=== PATIENT | female | born 1950 | race Caucasian/White ===

== ENCOUNTER 2016-08-15 17:59 | Emergency (ER) | payer OTHER ==
[2016-08-15 18:21] VITALS: BMI 24.3
[2016-08-15] MEDS ORDERED: SODIUM CHLORIDE 500 ML IV STA (19:12)
[2016-08-15] MEDS ORDERED: ACETAMINOPHEN 325 MG TABLET (FP) PO ONE (19:12)
--- NOTE | 2016-08-15 19:12 | PDOC ---
History of Present Illness - History of Present Illness Initial Comments: 08/15/16 19:52 Patient is a 66 year old female with significant medical hx of asthma, diabetes , arthritis and HTN who is presenting with two days of productive cough, diffuse headache, subjective fever, chills, and body aches. Today the patient reports an episode of nausea and vomiting that occurred at 3 PM. She also reports productive cough with white sputum production and right ear pain. The patient received the flu vaccine this year. Denies diarrhea or difficulty urinating. <Agueda Joseph - Last Filed: 08/15/16 19:55> <Axel Enins - Last Filed: 08/15/16 22:31> - General Chief Complaint: Cold Symptoms Stated Complaint: FLU LIKE SYMPTOMS Time Seen by Provider: 08/15/16 18:58 Past History <Agueda Joseph - Last Filed: 08/15/16 19:55> - Past Medical History Anemia: No Asthma: Yes Cancer: No Cardiac Disorders: No CVA: No COPD: No CHF: No Dementia: Yes Diabetes: Yes Disorders: No HTN: Yes Hypercholesterolemia: Yes Liver Disease: No Seizures: No Thyroid Disease: No - Surgical History Abdominal Surgery: No Appendectomy: No Cardiac Surgery: No Cholecystectomy: Yes (20 YEARS, OPEN PROCEDURE) Lung Surgery: No Neurologic Surgery: No Orthopedic Surgery: No - Immunization History Immunization Up to Date: Yes - Psycho/Social/Smoking Cessation Hx Anxiety: No Suicidal Ideation: No Smoking Status: Yes Smoking History: Former smoker Have you smoked in the past 12 months: No Number of Cigarettes Smoked Daily: 0 Information on smoking cessation initiated: No Hx Alcohol Use: No Drug/Substance Use Hx: No Substance Use Type: None Hx Substance Use Treatment: No <Axel Ennis - Last Filed: 08/15/16 22:31> - Past Medical History Allergies/Adverse Reactions: Allergies Allergy/AdvReac Type Severity Reaction Status Date / Time No Known Allergies Allergy Verified 08/15/16 18:04 Home Medications: Ambulatory Orders Oseltamivir Phosphate [Tamiflu -] 75 mg PO BID #10 capsule 08/15/16 Review of Systems - Review of Systems Comments:: CONSTITUTIONAL: Subjective fever, chills, body aches EYES: No visual changes ENT: Right ear pain. No sore throat CARDIOVASCULAR: No chest pain, no palpitations RESPIRATORY: Productive cough. No SOB GI: Nausea, vomiting. No abdominal pain, no constipation, no diarrhea GENITOURINARY: No dysuria, no frequency, no hematuria MUSKULOSKELETAL: No backpain, no joint pain, no myalgias SKIN: No rash NEURO: Headache <OpalAgueda - Last Filed: 08/15/16 19:55> *Physical Exam - Vital Signs Last Vital Signs Temp Pulse Resp BP Pulse Ox 99.9 F H 81 22 158/73 96 08/15/16 18:04 08/15/16 18:04 08/15/16 18:04 08/15/16 18:04 08/15/16 18:04 - Physical Exam Comments: 08/15/16 19:55 CONSTITUTIONAL: Morbidly obese, mild distress HEAD: Normocephalic; atraumatic EYES: PERRL; EOM intact. No photophobia ENMT: Frontal sinus tenderness to palpation. External appears normal; normal oropharynx NECK: Supple; non-tender; no cervical lymphadenopathy CARD: Normal S1, S2; no murmurs, rubs, or gallops RESP: Rhonchi at the bases bilaterally. Normal chest excursion with respiration ; no wheezes or rales ABD: Soft, non-distended; mild RUQ tenderness to palpation; no palpable organomegaly, no palpable hernias EXT: Normal ROM in all four extremities; non-tender to palpation; distal pulses intact SKIN: Warm, dry, no petechial rash NEURO: No focal neurological deficiencies. <OpalAgueda - Last Filed: 08/15/16 19:55> - Vital Signs Last Vital Signs Temp Pulse Resp BP Pulse Ox 99.9 F H 81 22 158/73 96 08/15/16 18:04 08/15/16 18:04 08/15/16 18:04 08/15/16 18:04 08/15/16 18:04 <Axel Ennis - Last Filed: 08/15/16 22:31> ED Treatment Course - LABORATORY CBC & Chemistry Diagram: 08/15/16 19:14 08/15/16 19:14 - Medications Given in the ED: ED Medications Discontinued Medications Generic Name Dose Route Start Last Admin Trade Name Freq PRN Reason Stop Dose Admin Acetaminophen 650 mg 08/15/16 19:12 08/15/16 19:25 Tylenol - PO 08/15/16 19:13 650 mg ONCE ONE Administration <Agueda Joseph - Last Filed: 08/15/16 19:55> - LABORATORY CBC & Chemistry Diagram: 08/15/16 19:14 08/15/16 19:14 - RADIOLOGY Radiology Studies Ordered: Category Date Time Status CHEST X-RAY PORTABLE* [RAD] Stat Radiology 08/15/16 19:08 Ordered <Axel Ennis - Last Filed: 08/15/16 22:31> Medical Decision Making - Medical Decision Making 08/15/16 22:29 Patient is a 66-year-old female who presents with flulike symptoms for the past 2 days and a fever. In the ER, patient was noted to be initially febrile to 103.3. Serial exams reveal no evidence of meningismus. Lungs are noted to be clear with oxygen saturation above 95% on room air. CBC/CMP/UA within normal limit. Patient is noted to be positive for influenza a. Patient received acetaminophen, IV fluids and Tamiflu. At this time, patient is asymptomatic, well-appearing, tolerates by mouth and wishes to go home. Will discharge with Tamiflu twice a day for 5 days with PMD follow-up. Patient safe for outpatient discharge. <Axel Ennis - Last Filed: 08/15/16 22:31> *DC/Admit/Observation/Transfer - Attestations Scribe Attestion: 08/15/16 19:54 Documentation prepared by Agueda Joseph, acting as certified ophthalmic medical technician for Axel Ennis MD. <Agueda Joseph - Last Filed: 08/15/16 19:55> - Attestations Physician Attestion: 08/15/16 22:28 The documentation was prepared by the scribe under my direct supervision. I have reviewed the documentation which correctly represents the findings, medical decision-making and critical action taken by me. <Axel Ennis - Last Filed: 08/15/16 22:31> Diagnosis at time of Disposition: Influenza due to influenza virus, type A, human - Discharge Dispostion Disposition: HOME Condition at time of disposition: Stable - Referrals Referrals: Kayden Guadalupe MD [Primary Care Provider] - - Patient Instructions Printed Discharge Instructions: Influenza Print Language: IVORIAN
[2016-08-15] MEDS ORDERED: ACETAMINOPHEN 325 MG TABLET (FP) ONE (19:15)
[2016-08-15 19:57] LABS: BASOPHIL 0.4 % (0-2.0); MCH 26.8 pg (25.7-33.7); MCHC 32.6 g/dl (32.0-36.0); MEAN CELL VOLUME 82.2 fl (80-96); MEAN PLT VOLUME 8.6 fl (7.5-11.1); NEUTROPHILS 83.1 % (42.8-82.8); PLATELET COUNT 234 K/MM3 (134-434); RDW 15.4 % (11.6-15.6)
[2016-08-15] MEDS ORDERED: OSELTAMIVIR PHOSPHATE 75 MG CAPSULE PO ONE (19:58)
[2016-08-15 19:59] VITALS: TEMP 103.3
[2016-08-15] MEDS ORDERED: OSELTAMIVIR PHOSPHATE 75 MG CAPSULE ONE (19:59)
[2016-08-15 20:17] LABS: ALBUMIN 3.9 g/dl (3.4-5.0); ANION GAP 11 (8-16); CALCIUM 8.6 mg/dL (8.5-10.1); CO2 23 mmol/L (21-32); CREATININE 0.6 mg/dL (0.55-1.02); GLUCOSE,RANDOM 89 mg/dL (74-106); SGPT/ALT 22 U/L (12-78)
[2016-08-15 20:18] LABS: ALK PHOS 68 U/L (45-117); BILIRUBIN,TOTAL 0.7 mg/dL (0.2-1.0); TOT PROT 7.5 g/dl (6.4-8.2)
[2016-08-15 20:19] LABS: SGOT/AST 34 U/L (15-37)
[2016-08-15 20:44] LABS: URINE APPEARANCE CLEAR; URINE BILIRUBIN NEGATIVE (NEGATIVE); URINE COLOR LTYELLOW; URINE GLUCOSE (UA) NEGATIVE (NEGATIVE); URINE KETONE 1+ (NEGATIVE); URINE LEUK ESTERASE NEGATIVE (NEGATIVE); URINE NITRITE NEGATIVE (NEGATIVE); URINE PROTEIN NEGATIVE (NEGATIVE); URINE UROBILINOGEN NEGATIVE E.U./dl (0.2-1.0)
[2016-08-15] MEDS ORDERED: IBUPROFEN 400 MG TABLET (FP) PO ONE ×2 (20:53→21:34)
[2016-08-15 20:54] LABS: URINE BLOOD 2+ (NEGATIVE)
[2016-08-15 20:55] LABS: URINE MUCUS RARE; URINE RBC 28 /hpf (0-3); URINE WBC 1 /hpf (3-5)
[2016-08-15 20:57] VITALS: BP 139/72; PULSE 87
== END 2016-08-15 22:46 | disposition home or self-care (01) ==
LOC: JER 17:59
PROC: 3E0337Z Introduction of Electrolytic and Water Balance Substance into Peripheral Vein, Percutaneous Approach (ICD-10-PCS; principal; 2016-08-15)
DX: J09.X2 Influenza due to identified novel influenza A virus with other respiratory manifestations (principal); I10 Essential (primary) hypertension; E11.9 Type 2 diabetes mellitus without complications; J45.909 Unspecified asthma, uncomplicated; F03.90 Unspecified dementia, unspecified severity, without behavioral disturbance, psychotic disturbance, mood disturbance, and anxiety; Z87.891 Personal history of nicotine dependence
CPT/HCPCS: 36415; 71010-TC; 80053; 81003; 81015; 85025; 87086; 87804; 99283-25

== ENCOUNTER 2016-12-31 10:54 | Day surgery (SDC) | payer OTHER ==
[2016-12-30 19:05] VITALS: BMI 36.2
[2016-12-31 11:16] VITALS: TEMP 97.9
[2016-12-31] MEDS ORDERED: LIDOCAINE HCL/PF 2% SDV 5ML VIAL ONE (12:42)
[2016-12-31] MEDS ORDERED: PROPOFOL 20 ML ONE (12:42)
[2016-12-31] MEDS ORDERED: BETAMET ACET/BETAMET NA PH 30 MG/5 ML VIAL IM ONE (13:11)
[2016-12-31] MEDS ORDERED: LIDOCAINE HCL 1%, 10 MG/ML (20ML VIAL) IJ ONE (13:11)
[2016-12-31 15:12] VITALS: BP 123/68; PULSE 66
--- NOTE | 2017-01-09 13:04 | OP ---
DATE OF OPERATION: 12/31/2016 PREOPERATIVE DIAGNOSIS: Low back pain, lumbar radiculopathy on the left. POSTOPERATIVE DIAGNOSIS: Low back pain, lumbar radiculopathy on the left. PROCEDURE PERFORMED: Lumbar epidural steroid injection, interlaminar at left L4-5 level. ANESTHESIA: Local and MAC. RN IV THERAPY: Camryn Garcia MD. PROCEDURE IN DETAIL: I discussed with her in details about the risks, benefits and alteratives of treatment no only limited to infection, fever, headache, numbness, tingling weakness, injury to blood vessel, nerves and muscles. The patient understood all this and signed the informed consent. The patient was placed in the prone position with the head, neck, abdomen and legs supported by pillows. The lumbosacral area was prepped and draped with Betadine x3. Under fluoroscopic guidance left L4-L5 level was identified. At this level 3 mL of 1% lidocaine was infiltrated. A 20-gauge, 3 1/2-inch Tuohy needle was used to approach the epidural space with loss of resistance technique with intermittent fluoroscopy both AP and oblique views. After negative aspiration, 2 mL of Omnipaque were injected to see the flow of dye and the spread was noted both cranially and caudally. There was no vascular uptake with CSF aspirate. At this level 2.5 mL of Celestone mixed with 2.5 mL of 0.25% Marcaine total about 5 mL were injected at epidural space after negative aspiration. While the Tuohy was withdrawn 1 mL of 1% lidocaine was infiltrated. Bleeding was checked. Betadine was wiped off. A sterile bandage was placed. The patient tolerated the procedure well and there were no immediate complications. The patient was transferred to the recovery room and observed for some time and discharged per discharge criteria. The patient was told to apply ice. If any problem she was told to call me or report to the ER. Followup appointment was given. CALLIE LOPEZ M.D. RONI/[id number]
== END 2016-12-31 15:00 | disposition home or self-care (01) ==
LOC: JASU-SURG 10:54
PROVIDERS: ATTEND Physical Medicine & Rehabilitation
PROC: 3E0R3CZ (ICD-10-PCS; 2016-12-31)
PROC: B01BZZZ Fluoroscopy of Spinal Cord (ICD-10-PCS; 2016-12-31)
PROC: 3E0R33Z Introduction of Anti-inflammatory into Spinal Canal, Percutaneous Approach (ICD-10-PCS; principal; 2016-12-31 12:00)
DX: M54.16 Radiculopathy, lumbar region (principal); M54.5 Low back pain
CPT/HCPCS: 76000-TC

== ENCOUNTER 2017-10-29 23:24 | Inpatient (IN) | payer OTHER ==
[2017-10-29 23:28] VITALS: BMI 38.4
--- NOTE | 2017-10-30 00:34 | PDOC ---
History of Present Illness - General Chief Complaint: Injury Stated Complaint: fall Time Seen by Provider: 10/30/17 00:33 History Source: Patient - History of Present Illness Initial Comments: 10/29/2017 67 year old s/p slip on rug in the bathroom and fell hit the soap dish hit head , c/o left side rib pain, headache, neck pain and right ankle swelling and pain. unable to weight bear. patient reports that she felt dizzy shortly after the head injury. reports pain at this time no dizziness. Past History - Past Medical History Allergies/Adverse Reactions: Allergies Allergy/AdvReac Type Severity Reaction Status Date / Time No Known Allergies Allergy Verified 10/29/17 23:28 Home Medications: Ambulatory Orders Amlodipine Besylate 5 mg PO DAILY 12/30/16 Zolpidem Tartrate [Ambien] 5 mg PO HS 12/30/16 Bacitracin - [Bacitracin Topical Ointment -] 1 applic TP BID tube 11/03/17 Heparin - 5,000 unit SQ BID vial 11/03/17 Polyethylene Glycol 3350 [Miralax 119 gm Btl -] 17 gm PO DAILY bottle 11/03/17 traMADol HCL [Ultram -] 50 mg PO Q8H PRN #20 tablet MDD 3 tabs 11/03/17 Anemia: No Asthma: No Cancer: No Cardiac Disorders: No CVA: No COPD: No CHF: No Dementia: No Diabetes: No GI Disorders: No Disorders: No HTN: Yes Hypercholesterolemia: No Liver Disease: No Seizures: No Thyroid Disease: No Other medical history: herniated disc, arthritis - Surgical History Abdominal Surgery: No Appendectomy: No Cardiac Surgery: No Cholecystectomy: Yes (20 YEARS, OPEN PROCEDURE) Lung Surgery: No Neurologic Surgery: No - Immunization History Immunization Up to Date: Yes - Suicide/Smoking/Psychosocial Hx Smoking Status: Yes Smoking History: Never smoked Have you smoked in the past 12 months: No Number of Cigarettes Smoked Daily: 0 Hx Alcohol Use: No Drug/Substance Use Hx: No Substance Use Type: None Hx Substance Use Treatment: No Review of Systems - Review of Systems Able to Perform ROS?: Yes Is the patient limited Georgian proficient: No Constitutional: No: Symptoms Reported, See HPI, Chills, Diaphoresis, Fever, Loss of Appetite, Malaise, Night Sweats, Weakness, Weight Stable, Unintentional Wgt. Loss, Unexplained wgt Loss, Other Musculoskeletal: Yes: Joint Pain, Joint Swelling, Other (right ankle pain) Neurological: Yes: Headache (and neck pain). No: Symptoms reported, See HPI, Numbness, Paresthesia, Pre-Existing Deficit, Seizure, Tingling, Tremors, Weakness, Unsteady Gait, Ataxia, Dizziness, Other *Physical Exam - Vital Signs Last Vital Signs Temp Pulse Resp BP Pulse Ox 98.0 F 78 16 150/46 100 10/29/17 23:26 10/29/17 23:26 10/29/17 23:26 10/29/17 23:26 10/29/17 23:26 - Physical Exam General Appearance: Yes: Appropriately Dressed HEENT: positive: Other (bruising around left eye. no ethmoid bone tenderness. EOM intact. vision intact) Neck: positive: Tender lateral, Tender midline. negative: Tender, Trachea midline, Normal Thyroid, Rigid, Supple, Carotid bruit, Decreased range of motion , Stridor, Lymphadenopathy (R), Lymphadenopathy (L), Rigidity, Thyromegaly, Other Respiratory/Chest: positive: Lungs Clear, Normal Breath Sounds Cardiovascular: positive: Regular Rhythm, Regular Rate. negative: S1, S2, Edema , JVD, Murmur, Bradycardia, Tachycardia, Diastolic Murmur, Systolic Murmur, Gallop/S3, Gallop/S4, Irregularly Irregular, Irregular, Other Gastrointestinal/Abdominal: positive: Normal Bowel Sounds, Soft Extremity: positive: Normal Capillary Refill, Normal Inspection, Other (limited rom of the right ankle. ) Integumentary: positive: Normal Color, Dry, Warm Neurologic: positive: Fully Oriented, Alert Heart Score/ECG Review - ECG Intrepretation Rhythm: Regular Rhythm Comment:: 10/30/17 03:48 NSR; 74 ED Treatment Course - LABORATORY CBC & Chemistry Diagram: 11/03/17 06:40 11/03/17 06:40 Progress Note - Progress Note Progress Note: A; right distal fib fracture; head injury P; xray: + distal fib fracture ct head cervical neck Medical Decision Making - Medical Decision Making A: distal fib fracture; elderly fall head injury P: cbc cmp xray: ct head/ cervical spine 10/30/17 03:18 patient unable to weightbear. 10/30/17 05:44 patient to be placed under observation for PT evaluation. Patient endorsed to Dr. Alberto for obs placement. *DC/Admit/Observation/Transfer Diagnosis at time of Disposition: Inability to bear weight Head injury Qualifiers: Encounter type: initial encounter Qualified Code(s): S09.90XA - Unspecified injury of head, initial encounter Fracture of distal fibula Qualifiers: Encounter type: initial encounter Fracture type: closed Fracture morphology: unspecified fracture morphology Laterality: right Qualified Code(s): S82.831A - Other fracture of upper and lower end of right fibula, initial encounter for closed fracture - Discharge Dispostion Disposition: RETIREMENT FACILITY Condition at time of disposition: Improved Admit: Yes - Referrals - Patient Instructions - Post Discharge Activity
[2017-10-30 03:31] LABS: BASO % 0.5 % (0-2.0); EOS % 0.6 % (0-4.5); HEMATOCRIT 35.1 % (32.4-45.2); HEMOGLOBIN 11.7 GM/dL (10.7-15.3); LYMPH % 22.6 % (8-40); MCH 26.9 pg (25.7-33.7); MCHC 33.2 g/dl (32.0-36.0); MEAN PLT VOLUME 8.6 fl (7.5-11.1); MONO % 7.1 % (3.8-10.2); NEUT % 69.2 % (42.8-82.8); PLATELET COUNT 325 K/MM3 (134-434); RBC 4.34 M/mm3 (3.60-5.2); RDW 15.8 % (11.6-15.6); WHITE BLOOD COUNT 7.5 K/mm3 (4.0-10.0)
[2017-10-30 04:49] LABS: ALBUMIN 3.5 g/dl (3.4-5.0); ANION GAP 7 (8-16); BILIRUBIN,TOTAL 0.3 mg/dL (0.2-1.0); BLOOD UREA NITROGEN 18 mg/dL (7-18); CALCIUM 8.2 mg/dL (8.5-10.1); CHLORIDE 106 mmol/L (98-107); CO2 27 mmol/L (21-32); CREATININE 0.6 mg/dL (0.55-1.02); GLUCOSE,RANDOM 145 mg/dL (74-106); POTASSIUM 3.4 mmol/L (3.5-5.1); SGOT/AST 17 U/L (15-37); SGPT/ALT 15 U/L (12-78); SODIUM 140 mmol/L (136-145)
[2017-10-30 04:51] LABS: ALK PHOS 71 U/L (45-117)
[2017-10-30] MEDS ORDERED: ONDANSETRON 4 MG/2 ML VIAL IVPUSH PRN (10:54)
--- NOTE | 2017-10-30 11:21 | EKG ---
Test Reason : Blood Pressure : / mmHG Vent. Rate : 074 BPM Atrial Rate : 074 BPM P-R Int : 138 ms QRS Dur : 084 ms QT Int : 408 ms P-R-T Axes : 030 -13 014 degrees QTc Int : 452 ms NORMAL SINUS RHYTHM MODERATE VOLTAGE CRITERIA FOR LVH, MAY BE NORMAL VARIANT BORDERLINE ECG WHEN COMPARED WITH ECG OF 30-NOV-2010 08:32, NO SIGNIFICANT CHANGE WAS FOUND Confirmed by GLADYS MELARA, BLADIMIR ([id number]) on 10/30/2017 11:21:09 AM Referred By: Confirmed By:BLADIMIR GRAHAM MD
--- NOTE | 2017-10-30 11:23 | CON.ORTH ---
Consult Reason for Consultation:: right ankle fx - Alcohol/Substance Use Hx Alcohol Use: No - Smoking History Smoking history: Never smoked Have you smoked in the past 12 months: No Aproximately how many cigarettes per day: 0 Home Medications - Allergies Allergies/Adverse Reactions: Allergies Allergy/AdvReac Type Severity Reaction Status Date / Time No Known Allergies Allergy Verified 10/29/17 23:28 - Home Medications Home Medications: Ambulatory Orders Amlodipine Besylate 5 mg PO DAILY 12/30/16 Zolpidem Tartrate [Ambien] 5 mg PO HS 12/30/16 Physical Exam for Ortho Vital Signs: Vital Signs Temperature 97.5 F L 10/30/17 09:06 Pulse Rate 68 10/30/17 09:06 Respiratory Rate 18 10/30/17 09:06 Blood Pressure 112/61 10/30/17 09:06 O2 Sat by Pulse Oximetry (%) 99 10/30/17 06:56 Labs: CBC, BMP 10/30/17 03:24 10/30/17 03:24 - Lower Extremity Ankle: Yes: Right, Limited ROM, Pain, Swelling, Tenderness, Other (splint intact , nvi) Imaging - Results X-ray: Report Reviewed, Image Reviewed Assessment/Plan 67 year old s/p slip on rug in the bathroom and fell hit the soap dish hit head , c/o left side rib pain, headache, neck pain and right ankle swelling and pain. unable to weight bear weight. a/p right non displaced distal fibula fx No surgical intervention keep splint intact TTWB elevation ok to d/c from ortho pov d/w Dr. Cohen
[2017-10-30] MEDS: amLODIPine BESYLATE 5 MG TABLET (FP) PO SCH (11:25)
[2017-10-30] MEDS: morphine SULFATE 4 MG/ML VIAL IVPUSH PRN ×2 (11:25→20:22)
[2017-10-30 13:45] LABS: URINE APPEARANCE SLCLOUDY; URINE BILIRUBIN NEGATIVE (<2.0 mg/dL); URINE COLOR YELLOW; URINE GLUCOSE (UA) NEGATIVE (NEGATIVE); URINE KETONE NEGATIVE (NEGATIVE); URINE LEUK ESTERASE NEGATIVE (NEGATIVE); URINE NITRITE NEGATIVE (NEGATIVE); URINE PROTEIN NEGATIVE (NEGATIVE)
--- NOTE | 2017-10-31 02:19 | HP ---
Admitting History and Physical - Admission History of Present Illness: Pt is a 67 y/o female w/ PMH significant for HTN. Pt was at home and slipped on a rug in the bathroom and fell. Pt did hit her head but there was no LOC. Pt presented to the ER w/ left side rib pain, headache, neck pain and right ankle swelling and pain. Pt is unable to bear weight due to ankle pain. Pt had XRAY wc showed rt distal fibular fx. CT scan head was negative. - Past Medical History Cardiovascular: Yes: HTN - Past Surgical History Past Surgical History: Yes: None - Smoking History Smoking history: Never smoked Have you smoked in the past 12 months: No Aproximately how many cigarettes per day: 0 - Alcohol/Substance Use Hx Alcohol Use: No Home Medications - Allergies Allergies/Adverse Reactions: Allergies Allergy/AdvReac Type Severity Reaction Status Date / Time No Known Allergies Allergy Verified 10/29/17 23:28 - Home Medications Home Medications: Ambulatory Orders Amlodipine Besylate 5 mg PO DAILY 12/30/16 Zolpidem Tartrate [Ambien] 5 mg PO HS 12/30/16 Family Disease History - Family Disease History Family History: Unremarkable Review of Systems - Review of Systems Eyes: reports: No Symptoms HENT: reports: No Symptoms Neck: reports: No Symptoms Cardiovascular: reports: No Symptoms Respiratory: reports: No Symptoms Gastrointestinal: reports: No Symptoms Physical Examination Vital Signs: Vital Signs Temperature 98.6 F 10/30/17 20:06 Pulse Rate 83 10/30/17 20:06 Respiratory Rate 18 10/30/17 20:34 Blood Pressure 125/68 10/30/17 20:06 O2 Sat by Pulse Oximetry (%) 97 10/30/17 20:34 Constitutional: Yes: Well Nourished HENT: Yes: WNL Neck: Yes: WNL, Supple Cardiovascular: Yes: WNL, Regular Rate and Rhythm Respiratory: Yes: WNL, Regular, CTA Bilaterally Gastrointestinal: Yes: WNL, Normal Bowel Sounds, Soft Extremities: Yes: Other (Rt foot/leg immobilized) Edema: No Neurological: Yes: WNL, Alert, Oriented ...Motor Strength: WNL Labs: CBC, BMP 10/30/17 03:24 10/30/17 03:24 Problem List - Problems (1) Fracture of distal fibula Assessment/Plan: As per ortho Spoke to pt who states that she is unable to be cared for at home. Pain management PT eval ?STR placement Code(s): S82.839A - OTH FRACTURE OF UPPER AND LOWER END OF UNSP FIBULA, INIT Qualifiers: Encounter type: initial encounter Fracture type: closed Fracture morphology: unspecified fracture morphology Laterality: right Qualified Code (s): S82.831A - Other fracture of upper and lower end of right fibula, initial encounter for closed fracture (2) HTN (hypertension) Assessment/Plan: Cont [facility] Code(s): I10 - ESSENTIAL (PRIMARY) HYPERTENSION (3) Head injury Code(s): S09.90XA - UNSPECIFIED INJURY OF HEAD, INITIAL ENCOUNTER Qualifiers: Encounter type: initial encounter Qualified Code(s): S09.90XA - Unspecified injury of head, initial encounter
[2017-10-31] MEDS: morphine SULFATE 4 MG/ML VIAL IVPUSH PRN ×3 (06:24→20:43)
[2017-10-31 07:47] LABS: BASO % 0.8 % (0-2.0); EOS % 1.7 % (0-4.5); HEMATOCRIT 34.4 % (32.4-45.2); HEMOGLOBIN 11.3 GM/dL (10.7-15.3); LYMPH % 27.5 % (8-40); MCH 26.6 pg (25.7-33.7); MCHC 32.7 g/dl (32.0-36.0); MEAN CELL VOLUME 81.2 fl (80-96); PLATELET COUNT 267 K/MM3 (134-434); RBC 4.24 M/mm3 (3.60-5.2); RDW 15.3 % (11.6-15.6); WHITE BLOOD COUNT 5.3 K/mm3 (4.0-10.0)
[2017-10-31 08:15] LABS: ALBUMIN 3.2 g/dl (3.4-5.0); ANION GAP 6 (8-16); BLOOD UREA NITROGEN 16 mg/dL (7-18); CHLORIDE 104 mmol/L (98-107); CO2 29 mmol/L (21-32); GLUCOSE,RANDOM 127 mg/dL (74-106); POTASSIUM 3.7 mmol/L (3.5-5.1); SODIUM 139 mmol/L (136-145)
[2017-10-31 08:19] LABS: ALK PHOS 70 U/L (45-117); BILIRUBIN,TOTAL 0.6 mg/dL (0.2-1.0); CREATININE 0.4 mg/dL (0.55-1.02); SGOT/AST 15 U/L (15-37); SGPT/ALT 16 U/L (12-78); TOT PROT 6.5 g/dl (6.4-8.2)
[2017-10-31] MEDS: amLODIPine BESYLATE 5 MG TABLET (FP) PO SCH (09:38)
[2017-10-31] MEDS: HEPARIN NA (PORCINE) 5,000 UNITS/ML 1ML VIAL SQ SCH ×2 (09:38→22:08)
--- NOTE | 2017-10-31 13:01 | PN ---
Progress Note (short form) - Note Progress Note: Ortho Pt seen and examined s/p right distal fibula fx splint intact, nvi a/p NWB RLE PT pain control ok to d/c from ortho pov f/u in 7-10 days in the office d/w Dr. Cohen
[2017-10-31] MEDS ORDERED: diphenhydrAMINE HCL 25 MG CAPSULE (FP) PO ONE (22:15)
[2017-11-01] MEDS: HEPARIN NA (PORCINE) 5,000 UNITS/ML 1ML VIAL SQ SCH ×2 (09:19→21:39)
[2017-11-01] MEDS: morphine SULFATE 4 MG/ML VIAL IVPUSH PRN (09:19)
[2017-11-01] MEDS: amLODIPine BESYLATE 5 MG TABLET (FP) PO SCH (09:19)
--- NOTE | 2017-11-01 11:09 | PN ---
Progress Note (short form) - Note Progress Note: Pt seen and examined. She has a nondisplaced right distal fibula fracture. In a splint, comfortable. No significant swelling. LLE NVI Pt doing well. She can be DC'd/transfered from an ortho pov
[2017-11-01] MEDS: diphenhydrAMINE HCL 25 MG CAPSULE (FP) PO ONE ×2 (14:33→14:47)
[2017-11-01] MEDS: POLYETHYLENE GLYCOL 3350 119 GM BTL PO SCH (14:33)
[2017-11-01] MEDS ORDERED: diphenhydrAMINE HCL 25 MG CAPSULE (FP) PO ONE ×2 (14:45→23:30)
[2017-11-01] MEDS: traMADol HCL 50 MG TABLET PO PRN ×2 (14:46→23:28)
--- NOTE | 2017-11-01 16:30 | PN ---
Progress Note, Physician History of Present Illness: Pt c/o pruritis at sight of splint/dressing Pt also complains of increased swelling of toes but has been sitting all day - Current Medication List Current Medications: Active Medications Amlodipine Besylate (Norvasc -) 5 mg PO DAILY [facility] Last Admin: 11/01/17 09:19 Dose: 5 mg Heparin Sodium (Porcine) (Heparin -) 5,000 unit SQ BID [facility] Last Admin: 11/01/17 09:19 Dose: 5,000 unit Ondansetron HCl (Zofran Injection) 4 mg IVPUSH Q6H PRN PRN Reason: NAUSEA Polyethylene Glycol (Miralax (For Daily Use) -) 17 gm PO DAILY [facility] Last Admin: 11/01/17 14:33 Dose: 17 gm Tramadol HCl (Ultram -) 50 mg PO Q8H PRN PRN Reason: PAIN LEVEL 1-3 Last Admin: 11/01/17 14:46 Dose: 50 mg - Objective Vital Signs: Vital Signs Temperature 98 F 11/01/17 13:36 Pulse Rate 76 11/01/17 13:36 Respiratory Rate 20 11/01/17 13:36 Blood Pressure 129/60 11/01/17 13:36 O2 Sat by Pulse Oximetry (%) 97 10/31/17 21:00 Constitutional: Yes: Well Nourished Neck: Yes: WNL, Supple Cardiovascular: Yes: WNL, Regular Rate and Rhythm Respiratory: Yes: WNL, Regular, CTA Bilaterally Gastrointestinal: Yes: WNL, Normal Bowel Sounds, Soft Extremities: Yes: Other ((+) rt ankle in splint) Labs: CBC, BMP 10/31/17 06:30 10/31/17 07:00 Problem List - Problems (1) Fracture of distal fibula Assessment/Plan: Long d/w pt and spoke to daughter who states that pt has been falling at home' Pt feels she is unable to care for herself at home DC planning to STR in am Keep RLE elevated for edema Code(s): S82.839A - OTH FRACTURE OF UPPER AND LOWER END OF UNSP FIBULA, INIT Qualifiers: Encounter type: initial encounter Fracture type: closed Fracture morphology: unspecified fracture morphology Laterality: right Qualified Code (s): S82.831A - Other fracture of upper and lower end of right fibula, initial encounter for closed fracture (2) HTN (hypertension) Assessment/Plan: Cont [facility] Code(s): I10 - ESSENTIAL (PRIMARY) HYPERTENSION (3) Head injury Code(s): S09.90XA - UNSPECIFIED INJURY OF HEAD, INITIAL ENCOUNTER Qualifiers: Encounter type: initial encounter Qualified Code(s): S09.90XA - Unspecified injury of head, initial encounter
[2017-11-02] MEDS: amLODIPine BESYLATE 5 MG TABLET (FP) PO SCH (10:06)
[2017-11-02] MEDS: POLYETHYLENE GLYCOL 3350 119 GM BTL PO SCH (10:06)
[2017-11-02] MEDS: HEPARIN NA (PORCINE) 5,000 UNITS/ML 1ML VIAL SQ SCH ×2 (10:06→21:23)
[2017-11-02] MEDS: traMADol HCL 50 MG TABLET PO PRN (16:56)
[2017-11-03 07:47] LABS: ALBUMIN 3.1 g/dl (3.4-5.0); ANION GAP 5 (8-16); BILIRUBIN,TOTAL 0.5 mg/dL (0.2-1.0); BLOOD UREA NITROGEN 17 mg/dL (7-18); CHLORIDE 106 mmol/L (98-107); CO2 29 mmol/L (21-32); CREATININE 0.5 mg/dL (0.55-1.02); GLUCOSE,RANDOM 121 mg/dL (74-106); SGOT/AST 17 U/L (15-37); SODIUM 140 mmol/L (136-145); TOT PROT 6.3 g/dl (6.4-8.2)
[2017-11-03 07:51] LABS: ALK PHOS 67 U/L (45-117); SGPT/ALT 13 U/L (12-78)
[2017-11-03 08:01] LABS: BASO % 0.8 % (0-2.0); EOS % 2.5 % (0-4.5); HEMOGLOBIN 10.9 GM/dL (10.7-15.3); LYMPH % 31.9 % (8-40); MCH 26.6 pg (25.7-33.7); MCHC 32.9 g/dl (32.0-36.0); MEAN CELL VOLUME 80.8 fl (80-96); MEAN PLT VOLUME 8.2 fl (7.5-11.1); MONO % 9.5 % (3.8-10.2); NEUT % 55.3 % (42.8-82.8); PLATELET COUNT 258 K/MM3 (134-434); RBC 4.09 M/mm3 (3.60-5.2); RDW 15.2 % (11.6-15.6); WHITE BLOOD COUNT 5.4 K/mm3 (4.0-10.0)
[2017-11-03] MEDS: traMADol HCL 50 MG TABLET PO PRN (08:09)
[2017-11-03] MEDS: amLODIPine BESYLATE 5 MG TABLET (FP) PO SCH (09:59)
[2017-11-03] MEDS: POLYETHYLENE GLYCOL 3350 119 GM BTL PO SCH (10:00)
[2017-11-03] MEDS: HEPARIN NA (PORCINE) 5,000 UNITS/ML 1ML VIAL SQ SCH (10:00)
--- NOTE | 2017-11-03 10:47 | DS ---
Physical Exam: SUBJECTIVE: Patient seen and examined at the bedside. Feels well, denies discomfort. Constipated Small area of redness on right wrist where IV was inserted, will order bacitracin OBJECTIVE: for discharge today to rehab for nondisplaced right distal fibula fracture. Vital Signs Period Temp Pulse Resp BP Sys/Steiner Pulse Ox Last 24 Hr 97.7 F-98.1 F 73-96 18-20 127-137/63-65 97 PHYSICAL EXAM GENERAL: The patient is awake, alert, and fully oriented, in no acute distress. HEAD: Normal with no signs of trauma. EYES: PERRL, extraocular movements intact, sclera anicteric, conjunctiva clear. ENT: Ears normal, nares patent, oropharynx clear without exudates, moist mucous membranes. NECK: Trachea midline, full range of motion, supple. LUNGS:no accessory muscle use, tolerating room air ABDOMEN: Soft, nontender, nondistended, normoactive bowel sounds, c/o of constipation EXTREMITIES: minimal edema on right foot, soft cast for non displaced right distal fibula fracture s/p fall NEUROLOGICAL: Normal speech, gait not observed. PSYCH: Normal mood, normal affect. SKIN: Warm, dry, normal turgor, no rashes or lesions noted. LABS Laboratory Results - last 24 hr 11/03/17 11/03/17 06:40 06:40 WBC 5.4 RBC 4.09 Hgb 10.9 Hct 33.0 MCV 80.8 MCH 26.6 MCHC 32.9 RDW 15.2 Plt Count 258 MPV 8.2 Neutrophils % 55.3 Lymphocytes % 31.9 Monocytes % 9.5 Eosinophils % 2.5 Basophils % 0.8 Sodium 140 Potassium 4.0 Chloride 106 Carbon Dioxide 29 Anion Gap 5 L BUN 17 Creatinine 0.5 L Creat Clearance w eGFR > 60 Random Glucose 121 H Calcium 8.0 L Total Bilirubin 0.5 AST 17 ALT 13 Alkaline Phosphatase 67 Total Protein 6.3 L Albumin 3.1 L HOSPITAL COURSE: Date of Admission:10/31/17 Date of Discharge: 11/03/17 patient is a 67 year old female with a significant past medical history of hypertension. Patient comes to the hospital after she sustained a right distal fibular fracture s/p fall. Head CT negative. For discharge to rehab. today. Ortho: Fracture of distal fibula Fell and hit head, Head CT negative Ortho followed during hospitalization, cleared for discharge to rehab Pain management with Ultram Elevation of right lower leg on at least 3 pillows for mild edema Bowel regimen Monitor pain levels For rehab today Card: Hypertension, chronic Stable/controlled on Norvasc Discharge: for rehab today. Medical coverage for Dr. Alberto who is patient's PCP. full code. Minutes to complete discharge: 45 Discharge Summary Reason For Visit: FX OF DISTAL END OF FIBULA Current Active Problems Fracture of distal fibula (Acute) HTN (hypertension) (Acute) Head injury (Acute) Inability to bear weight (Acute) Condition: Improved - Instructions Diet, Activity, Other Instructions: Patient for rehab due to nondisplaced right distal fibula fracture. Continue medications as indicated. Referrals: Kayden Guadalupe MD [Primary Care Provider] - Disposition: SNF FACILITY - Home Medications Comprehensive Discharge Medication List: Ambulatory Orders Amlodipine Besylate 5 mg PO DAILY 12/30/16 Zolpidem Tartrate [Ambien] 5 mg PO HS 12/30/16 This patient is new to me today: Yes Date on this admission: 11/03/17 Emergency Visit: Yes ED Registration Date: 10/31/17 Care time: The patient presented to the Emergency Department on the above date and was hospitalized for further evaluation of their emergent condition. Critical Care patient: No - Discharge Referral Referred to [facility] No
[2017-11-03] MEDS ORDERED: BACITRACIN 15 GM TUBE TOPICAL OINTMENT TP SCH (11:00)
[2017-11-03] MEDS ORDERED: BISACODYL 5 MG TABLET.DR (FP) PO ONE (11:30)
[2017-11-03] MEDS ORDERED: ACETAMINOPHEN 500 MG TABLET (FP) PO ONE (14:36)
[2017-11-03 14:39] VITALS: BP 109/52; PULSE 80; TEMP 97.5
== END 2017-11-03 15:23 | DRG 563 ==
LOC: JER 23:24 → UNDOADMOB 10-30 05:42 → JERBED 10-30 05:42 → UNDOADMOB 10-30 05:48 → JERBED 10-30 05:48 → J7W 10-30 08:44 → JERBED 10-30 08:44 → J7W 10-31 02:19 → OBSVTOIN 10-31 02:19
PROVIDERS: ADMIT Internal Medicine; ATTEND Nurse Practitioner Family
PROC: 2W3QX1Z Immobilization of Right Lower Leg using Splint (ICD-10-PCS; principal; 2017-11-01)
DX: S89.301A Unspecified physeal fracture of lower end of right fibula, initial encounter for closed fracture (principal); I10 Essential (primary) hypertension; S09.8XXA Other specified injuries of head, initial encounter; K59.09 Other constipation; W18.2XXA Fall in (into) shower or empty bathtub, initial encounter; Y93.89 Activity, other specified; Y92.091 Bathroom in other non-institutional residence as the place of occurrence of the external cause
CPT/HCPCS: 36415; 70450-TC; 71101-TC-FY; 72125-TC; 73610-TC-RT-FY; 73630-TC-RT-FY; 80053; 81003; 84484; 85025; 93005; 93010; 97116-GP; 97161-GP; 99282-25; J1644

== ENCOUNTER 2017-11-26 10:40 | Emergency (ER) | payer OTHER ==
[2017-11-26 10:56] VITALS: BP 144/69; PULSE 81; TEMP 98.2; BMI 38.4
--- NOTE | 2017-11-26 11:35 | PDOC ---
*Physical Exam - Vital Signs Last Vital Signs Temp Pulse Resp BP Pulse Ox 98.2 F 81 18 144/69 99 11/26/17 10:47 11/26/17 10:47 11/26/17 10:47 11/26/17 10:47 11/26/17 10:47 ED Treatment Course - LABORATORY CBC & Chemistry Diagram: 11/26/17 12:10 11/26/17 12:10 Medical Decision Making - Medical Decision Making 11/26/17 12:06 Ms Gross is a 67yo F h/o HTN, NIDDM p/w abdominal pain. Several days of lower abdominal pressure pain which worsened. (+) nausea and headache, no vomiting. No hematuria, flank pain, fever or chills. Labs CT REassess Pt seen by Midlevel Provider under my direct supervision Pt interviewed and examined Ancillary studies reviewed I agree with plan as outlined by Midlevel Provider *DC/Admit/Observation/Transfer Diagnosis at time of Disposition: Abdominal pain - Discharge Dispostion Disposition: HOME - Referrals Referrals: Kayden Guadalupe MD [Primary Care Provider] - - Patient Instructions Printed Discharge Instructions: DI for Abdominal Pain-Adult Additional Instructions: Please return to the emergency department with any new or worsening symptoms or concerns. Please follow up with your primary care physician within 72 hours. Take Tylenol as needed for abdominal pain. - Post Discharge Activity
[2017-11-26] MEDS ORDERED: ONDANSETRON 4 MG/2 ML VIAL IVPUSH ONE (11:38)
[2017-11-26] MEDS ORDERED: KETOROLAC TROMETHAMINE 30 MG/1 ML VIAL IVPUSH ONE (11:38)
--- NOTE | 2017-11-26 11:46 | PDOC ---
History of Present Illness - General Chief Complaint: Pain Stated Complaint: ABD PAIN Time Seen by Provider: 11/26/17 11:30 History Source: Patient, Family - History of Present Illness Timing/Duration: reports: constant, getting worse Past History - Past Medical History Allergies/Adverse Reactions: Allergies Allergy/AdvReac Type Severity Reaction Status Date / Time No Known Allergies Allergy Verified 11/26/17 10:47 Home Medications: Ambulatory Orders Amlodipine Besylate 5 mg PO DAILY 12/30/16 Zolpidem Tartrate [Ambien] 5 mg PO HS 12/30/16 Bacitracin - [Bacitracin Topical Ointment -] 1 applic TP BID tube 11/03/17 Heparin - 5,000 unit SQ BID vial 11/03/17 Polyethylene Glycol 3350 [Miralax 119 gm Btl -] 17 gm PO DAILY bottle 11/03/17 traMADol HCL [Ultram -] 50 mg PO Q8H PRN #20 tablet MDD 3 tabs 11/03/17 Anemia: No Asthma: No Cancer: No Cardiac Disorders: No CVA: No COPD: No CHF: No Dementia: No Diabetes: Yes GI Disorders: No Disorders: No HTN: Yes Hypercholesterolemia: No Liver Disease: No Seizures: No Thyroid Disease: No Other medical history: herniated disc, arthritis - Surgical History Abdominal Surgery: No Appendectomy: No Cardiac Surgery: No Cholecystectomy: Yes Lung Surgery: No Neurologic Surgery: No Orthopedic Surgery: No - Immunization History Immunization Up to Date: Yes - Suicide/Smoking/Psychosocial Hx Smoking Status: Yes Smoking History: Never smoked Have you smoked in the past 12 months: No Number of Cigarettes Smoked Daily: 0 Hx Alcohol Use: No Drug/Substance Use Hx: No Substance Use Type: None Hx Substance Use Treatment: No Review of Systems - Review of Systems Constitutional: No: Chills, Fever *Physical Exam - Vital Signs Last Vital Signs Temp Pulse Resp BP Pulse Ox 98.2 F 81 18 144/69 99 11/26/17 10:47 11/26/17 10:47 11/26/17 10:47 11/26/17 10:47 11/26/17 10:47 - Physical Exam General Appearance: Yes: Appropriately Dressed, Mild Distress HEENT: positive: Normal Voice Neck: positive: Supple Respiratory/Chest: positive: Lungs Clear, Normal Breath Sounds. negative: Respiratory Distress Cardiovascular: positive: Regular Rate, S1, S2 Gastrointestinal/Abdominal: positive: Tender (sig ttp to epigastrium/LUQ and LLQ , no CVAT, NT over RUQ and RLQ) Musculoskeletal: negative: CVA Tenderness Extremity: positive: Normal Inspection Integumentary: positive: Dry, Warm Neurologic: positive: Fully Oriented, Alert, Normal Mood/Affect ED Treatment Course - LABORATORY CBC & Chemistry Diagram: 11/26/17 12:10 11/26/17 12:10 - RADIOLOGY Radiology Studies Ordered: Category Date Time Status ABDOMEN & PELVIS CT WITH CONTR [CT] Stat CT Scan 11/26/17 11:38 Ordered Medical Decision Making - Medical Decision Making 11/26/17 11:44 67-year-old female, history of hypertension, [id number] diabetes, status post right ankle fracture, discharged from subacute rehab a week ago, brought in from home by family for abdominal pain. Patient complaining of severe pressure-like pain to lower abdomen x several days, constant and worsened this a.m. Associated with nausea and headache, no vomiting. ? dysuria , no hematuria, flank pain, fever or chills. No history of similar episode in the past See exam R/o diverticulitis vs uti vs renal stone, less likely biliary, gastritis or aortic pathology -pain control -zofran -IVF -labs -CT 11/26/17 14:[address] Carrasquillo pending CT read *DC/Admit/Observation/Transfer Diagnosis at time of Disposition: Abdominal pain - Discharge Dispostion Disposition: HOME - Referrals Referrals: Kayden Guadalupe MD [Primary Care Provider] - - Patient Instructions Printed Discharge Instructions: DI for Abdominal Pain-Adult Additional Instructions: Please return to the emergency department with any new or worsening symptoms or concerns. Please follow up with your primary care physician within 72 hours. Take Tylenol as needed for abdominal pain. - Post Discharge Activity
[2017-11-26] MEDS ORDERED: KETOROLAC TROMETHAMINE 30 MG/1 ML VIAL ONE (11:58)
[2017-11-26] MEDS ORDERED: ONDANSETRON 4 MG/2 ML VIAL ONE (11:58)
[2017-11-26 12:24] LABS: BASO % 0.6 % (0-2.0); EOS % 0.3 % (0-4.5); HEMATOCRIT 36.3 % (32.4-45.2); LYMPH % 19.1 % (8-40); MCH 26.8 pg (25.7-33.7); MCHC 33.1 g/dl (32.0-36.0); MEAN CELL VOLUME 80.9 fl (80-96); MEAN PLT VOLUME 7.9 fl (7.5-11.1); MONO % 7.8 % (3.8-10.2); NEUT % 72.2 % (42.8-82.8); PLATELET COUNT 289 K/MM3 (134-434); RBC 4.49 M/mm3 (3.60-5.2); RDW 15.5 % (11.6-15.6); WHITE BLOOD COUNT 7.9 K/mm3 (4.0-10.0)
[2017-11-26 12:57] LABS: ALBUMIN 3.8 g/dl (3.4-5.0); ALK PHOS 81 U/L (45-117); ANION GAP 7 (8-16); BILIRUBIN,TOTAL 0.8 mg/dL (0.2-1.0); BLOOD UREA NITROGEN 12 mg/dL (7-18); CALCIUM 8.6 mg/dL (8.5-10.1); CHLORIDE 104 mmol/L (98-107); CO2 29 mmol/L (21-32); CREATININE 0.5 mg/dL (0.55-1.02); GLUCOSE,RANDOM 93 mg/dL (74-106); LIPASE 104 U/L (73-393); POTASSIUM 4.2 mmol/L (3.5-5.1); SGOT/AST 19 U/L (15-37); SGPT/ALT 17 U/L (12-78); SODIUM 140 mmol/L (136-145); TOT PROT 7.5 g/dl (6.4-8.2)
[2017-11-26 13:54] LABS: URINE APPEARANCE CLEAR; URINE BILIRUBIN NEGATIVE (<2.0 mg/dL); URINE COLOR YELLOW; URINE GLUCOSE (UA) NEGATIVE (NEGATIVE); URINE KETONE NEGATIVE (NEGATIVE); URINE LEUK ESTERASE NEGATIVE (NEGATIVE); URINE NITRITE NEGATIVE (NEGATIVE); URINE PROTEIN NEGATIVE (NEGATIVE)
--- NOTE | 2017-11-26 15:28 | PDOC ---
*Physical Exam - Vital Signs Last Vital Signs Temp Pulse Resp BP Pulse Ox 98.2 F 81 18 144/69 99 11/26/17 10:47 11/26/17 10:47 11/26/17 10:47 11/26/17 10:47 11/26/17 10:47 - Physical Exam Comments: 11/26/17 15:29 GENERAL: Awake, alert, and fully oriented, in no acute distress HEAD: No signs of trauma, normocephalic, atraumatic EYES: PERRLA, EOMI, sclera anicteric, conjunctiva clear ENT: Hearing grossly normal, nares patent, oropharynx clear without exudates. Moist mucosa NECK: Normal ROM, supple, no lymphadenopathy, JVD, or masses LUNGS: No distress, speaks full sentences, clear to auscultation bilaterally HEART: Regular rate and rhythm, normal S1 and S2, no murmurs, rubs or gallops, peripheral pulses normal and equal bilaterally. ABDOMEN: Soft, upper abdominal ttp, normoactive bowel sounds. No guarding, no rebound. No masses.Neg CVA ttp. EXTREMITIES : Normal inspection, Normal range of motion, no edema. No clubbing or cyanosis. SKIN: Warm, Dry, normal turgor, no rashes or lesions noted ED Treatment Course - LABORATORY CBC & Chemistry Diagram: 11/26/17 12:10 11/26/17 12:10 - ADDITIONAL ORDERS Additional order review: Laboratory Results 11/26/17 11/26/17 13:05 12:10 Sodium 140 Potassium 4.2 Chloride 104 Carbon Dioxide 29 Anion Gap 7 L BUN 12 Creatinine 0.5 L Creat Clearance w eGFR > 60 Random Glucose 93 Calcium 8.6 Total Bilirubin 0.8 D AST 19 ALT 17 Alkaline Phosphatase 81 Total Protein 7.5 Albumin 3.8 Lipase 104 Urine Color Yellow Urine Appearance Clear Urine pH 7.0 D Ur Specific [place] 1.020 Urine Protein Negative Urine Glucose (UA) Negative Urine Ketones Negative Urine Blood Negative Urine Nitrite Negative Urine Bilirubin Negative Urine Urobilinogen 2.0 H Ur Leukocyte Esterase Negative 11/26/17 12:10 RBC 4.49 MCV 80.9 MCHC 33.1 RDW 15.5 MPV 7.9 Neutrophils % 72.2 D Lymphocytes % 19.1 D Monocytes % 7.8 Eosinophils % 0.3 D Basophils % 0.6 - Medications Given in the ED: ED Medications Discontinued Medications Generic Name Dose Route Start Last Admin Trade Name Greyson PRN Reason Stop Dose Admin Ketorolac Tromethamine 30 mg 11/26/17 11:38 11/26/17 12:13 Toradol Injection - IVPUSH 11/26/17 11:39 30 mg ONCE ONE Administration Ondansetron HCl 4 mg 11/26/17 11:38 11/26/17 12:13 Zofran Injection IVPUSH 11/26/17 11:39 4 mg ONCE ONE Administration Medical Decision Making - Medical Decision Making 11/26/17 15:23 67 yo F with h/o [id number]-hazphadfs diabetes, who p/w pressure-like lower abdominal pain x 3 days. Received handoff from [facility]. Patient is r/o diverticulitis. Labs and CT pending. Received Toradol 30 mg IV and NS. ED Course: 11/26/17 15:28 CBC, CMP: Unremarkable UA: Neg 11/26/17 16:04 2 cm cecal lipoma, colonic diverticulosis. No change compared to interval study 10/31/2012. Patient stable and tolerating PO intake safe for d/c with return precautions. *DC/Admit/Observation/Transfer Diagnosis at time of Disposition: Abdominal pain Qualifiers: Abdominal location: generalized Qualified Code(s): R10.84 - Generalized abdominal pain - Discharge Dispostion Disposition: HOME - Referrals Referrals: Kayden Guadalupe MD [Primary Care Provider] - - Patient Instructions Printed Discharge Instructions: DI for Abdominal Pain-Adult Additional Instructions: Please return to the emergency department with any new or worsening symptoms or concerns. Please follow up with your primary care physician within 72 hours. Take Tylenol as needed for abdominal pain. - Post Discharge Activity - Attestations Physician Attestion: 11/26/17 15:29 I attest to the information provided in this note.
== END 2017-11-26 16:28 | disposition home or self-care (01) ==
LOC: JER 10:40
PROC: 3E033GC Introduction of Other Therapeutic Substance into Peripheral Vein, Percutaneous Approach (ICD-10-PCS; principal; 2017-11-26)
PROC: 3E0333Z Introduction of Anti-inflammatory into Peripheral Vein, Percutaneous Approach (ICD-10-PCS; 2017-11-26)
DX: E11.9 Type 2 diabetes mellitus without complications (principal); I10 Essential (primary) hypertension; R10.84 Generalized abdominal pain
CPT/HCPCS: 36415; 74177-TC; 80053; 81003; 83690; 85025; 99282-25

== ENCOUNTER 2019-05-07 13:01 | Emergency (ER) | payer OTHER ==
[2019-05-07] MEDS ORDERED: DIPHTH,PERTUSS(ACELL),TET 0.5 ML DISP.SYRIN IM ONE ×2 (13:12→13:22)
[2019-05-07 13:13] VITALS: BP 158/66; PULSE 75; TEMP 97.8; BMI 40.2
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
== END 2019-05-07 14:21 | disposition home or self-care (01) ==
LOC: JER 13:01
PROC: 3E0234Z Introduction of Serum, Toxoid and Vaccine into Muscle, Percutaneous Approach (ICD-10-PCS; principal; 2019-05-07)
DX: S80.212A Abrasion, left knee, initial encounter (principal); S80.211A Abrasion, right knee, initial encounter; W18.39XA Other fall on same level, initial encounter; Y93.01 Activity, walking, marching and hiking; Y92.414 Local residential or business street as the place of occurrence of the external cause; Y99.8 Other external cause status; I10 Essential (primary) hypertension
CPT/HCPCS: 73130-TC-LT-FY; 73562-TC-LT-FY; 73562-TC-RT-FY; 90471; 90715; 99281-25

== ENCOUNTER 2019-06-18 06:25 | Day surgery (SDC) | payer OTHER ==
[2019-06-18 07:30] VITALS: TEMP 97.9; BMI 40.2
--- NOTE | 2019-06-18 08:52 | HP ---
Admitting History and Physical - Admission Chief Complaint: Left Low back and Leg Pain History of Present Illness: [facility] patient complains of left low back and leg pain secondary to chronic lumbar radiculopahty. History Source: Patient - Past Medical History Cardiovascular: Yes: HTN - Past Surgical History Past Surgical History: Yes: None - Smoking History Smoking history: Never smoked Have you smoked in the past 12 months: No Aproximately how many cigarettes per day: 0 - Alcohol/Substance Use Hx Alcohol Use: No Home Medications - Allergies Allergies/Adverse Reactions: Allergies Allergy/AdvReac Type Severity Reaction Status Date / Time No Known Allergies Allergy Verified 11/26/17 10:47 - Home Medications Home Medications: Ambulatory Orders Amlodipine Besylate 5 mg PO DAILY 12/30/16 Diphenhydramine HCl [Benadryl -] 25 mg PO Q6H 06/18/19 Hydrocodone/Acetaminophen [Vicodin Es 7.5-300 mg Tablet] 1 tab PO PRN 06/18/19 Physical Examination Vital Signs: Vital Signs Temperature 97.9 F 06/18/19 07:29 Pulse Rate 70 06/18/19 07:29 Respiratory Rate 20 06/18/19 07:29 Blood Pressure 149/71 06/18/19 07:29 O2 Sat by Pulse Oximetry (%) 97 06/18/19 07:30 Assessment/Plan The patients pain is secondary to Left lumbar radiculopathy. 1. I will perform Left L4 and L5 TFESI. Shai Javier DO
[2019-06-18] MEDS ORDERED: LIDOCAINE HCL 1%, 10 MG/ML (20ML VIAL) ONE (08:55)
[2019-06-18] MEDS ORDERED: BETAMET ACET/BETAMET NA PH 30 MG/5 ML VIAL ONE (08:55)
[2019-06-18] MEDS ORDERED: PROPOFOL 20 ML ONE (09:04)
[2019-06-18] MEDS ORDERED: LIDOCAINE HCL/PF 2% SDV 5ML VIAL ONE (09:05)
[2019-06-18] MEDS ORDERED: LIDOCAINE HCL 1% PRESERVATIVE FREE - 30ML VIAL IJ ONE ×2 (09:09→09:13)
[2019-06-18] MEDS ORDERED: LIDOCAINE HCL 1%, 10 MG/ML (50 mL VIAL) NR ONE ×2 (09:11→09:17)
[2019-06-18] MEDS ORDERED: IOHEXOL 180 MG/1 ML ML IJ ONE ×2 (09:11→09:17)
[2019-06-18] MEDS ORDERED: BETAMET ACET/BETAMET NA PH 30 MG/5 ML VIAL IM ONE ×2 (09:13→09:17)
--- NOTE | 2019-06-18 11:41 | PROC ---
Procedure Note Procedure: Pre Procedure Diagnosis: Left Lumbar radiculopathy Post Procedure Diagnosis: same Anesthesia: MAC Procedure: Left Lumbar Transforaminal Epidural Steroid Injection under Fluoroscopic Guidance After the risks and benefits were explained, informed consent was obtained. The patient was then taken to the procedure room and positioned prone on the procedure table. Time out was performed. The region overlying the Left L4 and L5 neural foramens were identified using fluoroscopy. The skin was prepped and draped in the usual sterile fashion. The skin and soft tissues were anesthetized using 1% lidocaine. The neural foramens were identified with the fluoroscopic beam directed in a right oblique direction. 2 22 gauge 5 inch spinal needles were then introduced into the appropriate neural foramens using intermittent fluoroscopic guidance using AP, oblique and lateral views as indicated. Needle placement was then confirmed with the injection of Omnipaque 180. Epidural flow was noted and the nerve root was outlined. No vascular uptake was noted. Next, 1.5 cc of betamethasone followed by 0.5 cc of 1% lidocaine was then injected around the Left L4 and L5 spinal nerves. The patient tolerated the procedure well and there were no complications. The patient was taken to the post procedure recovery area in good condition. Vital signs remained stable before, during, and after the procedure. The patient was given oral and written follow-up instructions. The patient was given a follow up appointment with me in the near future. Shai Javier DO
[2019-06-18 12:09] VITALS: BP 158/84; PULSE 76
== END 2019-06-18 10:50 | disposition home or self-care (01) ==
LOC: JASU-SURG 06:25
PROVIDERS: ATTEND Pain Medicine Pain Medicine
PROC: 3E0R33Z Introduction of Anti-inflammatory into Spinal Canal, Percutaneous Approach (ICD-10-PCS; 2019-06-18)
PROC: B01BYZZ Fluoroscopy of Spinal Cord using Other Contrast (ICD-10-PCS; 2019-06-18)
PROC: 3E0R3BZ Introduction of Anesthetic Agent into Spinal Canal, Percutaneous Approach (ICD-10-PCS; principal; 2019-06-18 08:30)
DX: M54.16 Radiculopathy, lumbar region (principal); I10 Essential (primary) hypertension; E11.9 Type 2 diabetes mellitus without complications; M19.91 Primary osteoarthritis, unspecified site
CPT/HCPCS: 76000-TC-FY

== ENCOUNTER 2019-06-23 08:16 | Day surgery (SDC) | payer OTHER ==
[2019-06-21 12:49] VITALS: BMI 40.2
[~2019-06-23 08:16] MED LIST: ACETAMINOPHEN 325 MG TABLET (FP) PO PRN; BUPIVACAINE HCL/PF 0.75% 10 ML VIAL PNB ONE; EPINEPHrine/PF 1 MG/1 ML (1:1,000) AMPULE SQ ONE; LIDOCAINE HCL 1% PRESERVATIVE FREE - 30ML VIAL IO ONE; LIDOCAINE HCL/PF 2% SDV 5ML VIAL INF ONE; LIDOCAINE HCL/PF 2% SDV 5ML VIAL PNB ONE; TRYPAN BLUE 0.5 ML DISP.SYRIN IO ONE
[2019-06-23] MEDS ORDERED: TROPICAMIDE 1% OPHTH SOLN 15 ML BOTTLE ONE (08:56)
[2019-06-23] MEDS ORDERED: CYCLOPENTOLATE HCL 1% OPHTH SOLN 2 ML BOTTLE ONE (08:56)
[2019-06-23] MEDS ORDERED: CIPROFLOXACIN HCL 0.3% OPHTH 2.5ML BOTTLE ONE (08:56)
[2019-06-23] MEDS ORDERED: FLURBIPROFEN 0.03% OPHTH SOLN 2.5 ML BOTTLE ONE (08:56)
[2019-06-23] MEDS ORDERED: PHENYLEPHRINE 2.5% OPHTH SOLN 15 ML BOTTLE ONE (08:56)
[2019-06-23] MEDS ORDERED: OFLOXACIN 0.3% OPHTHALMIC SOLUTION 5 ML BOTTLE ONE (09:01)
[2019-06-23] MEDS ORDERED: KETOROLAC TROMETHAMINE 0.5% EYE DROP 1 DROP DROPS ONE (09:01)
[2019-06-23] MEDS: PHENYLEPHRINE 2.5% OPHTH SOLN 15 ML BOTTLE OP SCH ×3 (09:10→09:30)
[2019-06-23] MEDS: OFLOXACIN 0.3% OPHTHALMIC SOLUTION 5 ML BOTTLE OP SCH ×3 (09:10→09:30)
[2019-06-23] MEDS: CYCLOPENTOLATE HCL 1% OPHTH SOLN 2 ML BOTTLE OP SCH ×3 (09:10→09:30)
[2019-06-23] MEDS: TROPICAMIDE 1% OPHTH SOLN 15 ML BOTTLE OP SCH ×3 (09:10→09:30)
[2019-06-23] MEDS: KETOROLAC TROMETHAMINE 0.5% EYE DROP 1 DROP DROPS OP SCH ×3 (09:10→09:30)
[2019-06-23] MEDS ORDERED: MIDAZOLAM HCL 2 MG/2 ML SINGLE DOSE VIAL ONE (10:17)
[2019-06-23] MEDS ORDERED: LIDOCAINE HCL/PF 2% SDV 5ML VIAL PNB ONE (10:24)
[2019-06-23] MEDS ORDERED: BUPIVACAINE HCL/PF 0.75% 10 ML VIAL PNB ONE ×2 (10:24→10:25)
[2019-06-23] MEDS ORDERED: CHONDROITIN SU A/HYALUR SOD 1 KIT IO ONE (10:25)
[2019-06-23] MEDS ORDERED: LIDOCAINE HCL/PF 2% SDV 5ML VIAL INF ONE (10:25)
[2019-06-23] MEDS ORDERED: LIDOCAINE HCL 1% PRESERVATIVE FREE - 30ML VIAL IO ONE (10:33)
[2019-06-23] MEDS ORDERED: TRYPAN BLUE 0.5 ML DISP.SYRIN IO ONE (10:39)
[2019-06-23] MEDS ORDERED: EPINEPHrine/PF 1 MG/1 ML (1:1,000) AMPULE SQ ONE (10:41)
[2019-06-23] MEDS ORDERED: PROPOFOL 20 ML ONE (10:59)
[2019-06-23] MEDS ORDERED: BUPIVACAINE HCL/PF 0.75% 10 ML VIAL ONE (11:22)
[2019-06-23] MEDS ORDERED: LIDOCAINE HCL/PF 2% SDV 5ML VIAL ONE (11:22)
[2019-06-23] MEDS ORDERED: TRYPAN BLUE 0.5 ML DISP.SYRIN ONE (11:22)
[2019-06-23] MEDS ORDERED: EPINEPHrine/PF 1 MG/1 ML (1:1,000) AMPULE ONE (11:22)
[2019-06-23 12:20] VITALS: BP 144/90; PULSE 75; TEMP 98.1
[2019-06-23] MEDS ORDERED: ACETAMINOPHEN 325 MG TABLET (FP) PO PRN (12:56)
[2019-06-23] MEDS ORDERED: ONDANSETRON 4 MG/2 ML VIAL IVPUSH PRN (12:56)
[2019-06-23] MEDS ORDERED: oxyCODONE HCL 5 MG TABLET PO PRN ×2 (12:56)
[2019-06-23] MEDS ORDERED: LACTATED RINGERS SOLUTION 1,000 ML IV SCH (13:00)
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
== END 2019-06-23 11:55 | disposition home or self-care (01) ==
LOC: JASU-SURG 08:16
PROVIDERS: ATTEND Ophthalmology
PROC: 08RK3JZ Replacement of Left Lens with Synthetic Substitute, Percutaneous Approach (ICD-10-PCS; principal; 2019-06-23 10:00)
DX: H25.092 Other age-related incipient cataract, left eye (principal)

== ENCOUNTER 2019-08-09 07:53 | Day surgery (SDC) | payer OTHER ==
[2019-08-05 13:19] VITALS: BMI 40.2
--- NOTE | 2019-08-09 09:56 | HP ---
History & Physical Update - History History: No Change - Physical Physical: No Change - Assessment Assessment: No Change - Plan Plan: No Change (No change in HP)
[2019-08-09] MEDS ORDERED: IBUPROFEN 400 MG TABLET (FP) PO PRN (10:05)
[2019-08-09] MEDS ORDERED: ACETAMINOPHEN 325 MG TABLET (FP) PO PRN (10:05)
[2019-08-09] MEDS ORDERED: DEXAMETHASONE SOD PHOSPHATE 4 MG/1 ML VIAL ONE (10:15)
[2019-08-09] MEDS ORDERED: MIDAZOLAM HCL 2 MG/2 ML SINGLE DOSE VIAL ONE (10:16)
[2019-08-09] MEDS ORDERED: PROPOFOL 20 ML ONE (10:16)
[2019-08-09] MEDS ORDERED: ROCURONIUM BROMIDE 50 MG/5 ML SYRINGE ONE (10:27)
[2019-08-09] MEDS ORDERED: ALBUTEROL SO4 HFA INHALER IH ONE (10:28)
[2019-08-09] MEDS ORDERED: ALBUTEROL SO4 0.083% IH SOL 2.5 MG/3 ML VIAL.NEB. NEB ONE ×3 (11:10→11:14)
--- NOTE | 2019-08-09 11:12 | OP ---
Operative Note - Note: Operative Date: 08/09/19 Pre-Operative Diagnosis: Endometrial Polyp Operation: Hyteroscopic myomectomy. Suction DC Findings: Cervical polyp Post-Operative Diagnosis: Same as Pre-op Surgeon: Susan Chen Anesthesia: General Estimated Blood Loss (mls): 5 Operative Report Dictated: Yes
[2019-08-09] MEDS ORDERED: ONDANSETRON 4 MG/2 ML VIAL IVPUSH PRN (11:14)
[2019-08-09] MEDS ORDERED: oxyCODONE HCL 5 MG TABLET PO PRN ×2 (11:14→13:57)
[2019-08-09] MEDS ORDERED: LACTATED RINGERS SOLUTION 1,000 ML IV SCH (11:15)
[2019-08-09] MEDS ORDERED: ACETAMINOPHEN 1000 MG/100 ML VIAL (NON FORMULARY) IVPB ONE ×2 (11:15→11:30)
[2019-08-09] MEDS ORDERED: ACETAMINOPHEN INJECTION 100 ML IVPB ONE (11:38)
[2019-08-09] MEDS ORDERED: IBUPROFEN 400 MG TABLET (FP) PO ONE (13:05)
[2019-08-09 13:34] VITALS: BP 132/68; PULSE 86; TEMP 97.3
--- NOTE | 2019-08-09 18:07 | OP ---
DATE OF OPERATION: 08/09/2019 PREOPERATIVE DIAGNOSIS: Endometrial polyps. OPERATION: Hysteroscopic myomectomy, suction dilation and curettage. POSTOPERATIVE DIAGNOSIS: Cervical polyp. SURGEON: Susan Chen MD ANESTHESIA: General. ESTIMATED BLOOD LOSS: 5 mL. DESCRIPTION OF PROCEDURE: Patient was taken to the operating room, placed in dorsal lithotomy position, prepped and draped in usual sterile fashion. Time-out was performed in accordance with hospital regulation. Speculum was placed in the vagina. Anterior lip of the cervix was grasped with a single-tooth tenaculum. Cervix then dilated to accommodate the operative hysteroscope. Cervical polyp was noted. No endometrial polyp. Suction dilation and curettage was then performed after cautery and cutting of the cervical polyp was done. Specimen suctioned and submitted to Pathology. Hemostasis was achieved. Estimated blood loss 5 mL. SUSAN CHEN M.D. [id number]
--- NOTE | 2019-08-11 19:43 | PATH ---
Surgical Pathology Report Patient Name: NEO FLETCHER [facility]. Rec. #: [id number] /Age/Gender: 1950 (Age: 69) / F Account: [id number] Location: [facility] SURGICAL Taken: 08/09/2019 Received: 08/09/2019 Reported: 08/11/2019 Physicians: Susan Chen M.D. Specimen(s) Received CERVICAL POLYP, CERVICAL AND ENDOMETRIAL CURETTINGS Clinical History Endometrial polyp Final Diagnosis CERVICAL POLYP, CERVICAL AND ENDOMETRIAL CURETTINGS: FRAGMENTS OF SQUAMOUS EPITHELIUM AND SCANT ENDOCERVICAL GLANDS ADMIXED WITH BLOOD AND ACUTE INFLAMMATION. NO ENDOMETRIAL TISSUE PRESENT. Electronically Signed Eve Willson M.D. Gross Description Received in formalin labeled "cervical polyp, cervical and endometrial curettings" are scanty fragments of white soft tissue measuring 0.2 x 0.2 x 0.1 cm aggregate. The formalin is filtered and the specimen is entirely submitted in one cassette. CARLENE/08/10/2019 amadou/08/10/2019
== END 2019-08-09 14:00 | disposition home or self-care (01) ==
LOC: JASU-SURG 07:53
PROVIDERS: ATTEND Obstetrics & Gynecology
PROC: 0UJD8ZZ Inspection of Uterus and Cervix, Via Natural or Artificial Opening Endoscopic (ICD-10-PCS; 2019-08-09)
PROC: 0UBC7ZX Excision of Cervix, Via Natural or Artificial Opening, Diagnostic (ICD-10-PCS; principal; 2019-08-09 10:00)
PROC: 0UDB7ZX Extraction of Endometrium, Via Natural or Artificial Opening, Diagnostic (ICD-10-PCS; 2019-08-09 10:00)
DX: N84.0 Polyp of corpus uteri (principal); N84.1 Polyp of cervix uteri; I10 Essential (primary) hypertension; E11.9 Type 2 diabetes mellitus without complications; Z79.84 Long term (current) use of oral hypoglycemic drugs
CPT/HCPCS: 36415; 82962; 84702; 86850; 86900; 86901; 88305-TC; 94760; J0131

== ENCOUNTER 2019-08-20 07:15 | Day surgery (SDC) | payer OTHER ==
[2019-07-01 14:32] VITALS: BMI 40.2
[2019-08-20] MEDS ORDERED: TRIAMCINOLONE ACET 40MG/1ML VIAL IM ONE (10:13)
[2019-08-20] MEDS ORDERED: LIDOCAINE HCL 1%, 10 MG/ML (20ML VIAL) INF ONE ×2 (10:13)
[2019-08-20] MEDS ORDERED: IOHEXOL 180 MG/1 ML ML IJ ONE ×2 (10:13)
[2019-08-20] MEDS ORDERED: BUPIVACAINE HCL/PF 0.5% (5MG/ML) 10 ML VIAL IJ ONE (10:13)
[2019-08-20 11:26] VITALS: BP 138/80; PULSE 88; TEMP 98.1
== END 2019-08-20 11:15 | disposition home or self-care (01) ==
LOC: JASU-SURG 07:15
PROVIDERS: ATTEND Pain Medicine Pain Medicine
PROC: 3E0R3BZ Introduction of Anesthetic Agent into Spinal Canal, Percutaneous Approach (ICD-10-PCS; 2019-08-20)
PROC: 3E0R33Z Introduction of Anti-inflammatory into Spinal Canal, Percutaneous Approach (ICD-10-PCS; principal; 2019-08-20 10:00)
DX: M53.88 Other specified dorsopathies, sacral and sacrococcygeal region (principal); M54.5 Low back pain

== ENCOUNTER 2020-02-21 20:47 | Emergency (ER) | payer OTHER ==
[2020-02-21 20:59] VITALS: BP 144/55; PULSE 90; TEMP 98.2; BMI 44.9
--- NOTE | 2020-02-21 21:01 | PDOC ---
Rapid Medical Evaluation Time Seen by Provider: 02/21/20 20:59 Medical Evaluation: Allergies Allergy/AdvReac Type Severity Reaction Status Date / Time No Known Allergies Allergy Verified 08/09/19 08:39 Vital Signs Temp Pulse Resp BP Pulse Ox 98.2 F 90 19 144/55 L 98 02/21/20 20:55 02/21/20 20:55 02/21/20 20:55 02/21/20 20:55 02/21/20 20:55 02/21/20 20:59 Pt presents for evaluation of the L arm with a bite. Exam: area of fluctance to the L dorsal forearm Orders: nothing Pt to proceed to the ER for further evaluation Discharge Disposition - Diagnosis Cellulitis - Referrals - Patient Instructions - Post Discharge Activity
[2020-02-21] MEDS ORDERED: LIDOCAINE HCL 1%, 10 MG/ML (20ML VIAL) ONE (21:17)
[2020-02-21] MEDS ORDERED: LIDOCAINE HCL 1%, 10 MG/ML (50 mL VIAL) SQ ONE (21:17)
[2020-02-21] MEDS ORDERED: SULFAMETHOXAZOLE/TRIMETHOPRIM 800MG/160MG D.S. TABLET PO ONE (21:47)
[2020-02-21] MEDS ORDERED: CEPHALEXIN MONOHYDRATE 500 MG CAPSULE (UD) PO ONE (21:47)
--- NOTE | 2020-02-21 21:53 | PDOC ---
History of Present Illness - General Chief Complaint: Wound Stated Complaint: LT ARM INFECTION Time Seen by Provider: 02/21/20 20:59 - History of Present Illness Initial Comments: 02/21/20 21:48 69-year-old female with a past medical history of diabetes and chronic pain presents for evaluation of a painful mass on her forearm which is been present for 5 days without systemic symptoms. She feels it is from an insect bite. Past History - Medical History Allergies/Adverse Reactions: Allergies Allergy/AdvReac Type Severity Reaction Status Date / Time No Known Allergies Allergy Verified 08/09/19 08:39 Home Medications: Ambulatory Orders Amlodipine Besylate 5 mg PO DAILY 12/30/16 Diphenhydramine HCl [Benadryl -] 25 mg PO Q6H 06/18/19 Hydrocodone/Acetaminophen [Vicodin Es 7.5-300 mg Tablet] 1 tab PO PRN 06/18/19 Ibuprofen [Motrin -] 600 mg PO QID #28 tablet 08/09/19 Cephalexin [Keflex] 500 mg PO QID #40 capsule 02/21/20 Sulfamethoxazole/Trimethoprim [Bactrim Ds -] 1 tab PO BID #14 tablet 02/21/20 Anemia: No Asthma: No Cancer: No Cardiac Disorders: No CVA: No COPD: No CHF: No Dementia: No Diabetes: Yes GI Disorders: No Disorders: No HTN: Yes Hypercholesterolemia: No Liver Disease: No Seizures: No Thyroid Disease: No Other medical history: arthritis - Surgical History Abdominal Surgery: No Appendectomy: No Cardiac Surgery: No Cholecystectomy: Yes Lung Surgery: No Neurologic Surgery: (EPIDURAL INJECTION) Orthopedic Surgery: No - Immunization History Immunization Up to Date: Yes - Psycho-Social/Smoking History Smoking Status: Yes Smoking History: Never smoked Have you smoked in the past 12 months: No Number of Cigarettes Smoked Daily: 0 - Substance Abuse Hx (Audit-C & DAST Scrn) How often the patient has a drink containing alcohol: Never Score: In Men: 4 or > Positive; In Women: 3 or > Positive: 0 Screen Result (Pos requires Nsg. Audit-10AR): Negative In the last yr the pt used illegal drug/Rx for NonMed reason: No Score: Yes response is considered Positive: 0 Screen Result (Positive result requires Nsg. DAST-10): Negative Review of Systems - Review of Systems Constitutional: No: Fever *Physical Exam - Vital Signs Last Vital Signs Temp Pulse Resp BP Pulse Ox 98.2 F 90 19 144/55 L 98 02/21/20 20:55 02/21/20 20:55 02/21/20 20:55 02/21/20 20:55 02/21/20 20:55 - Physical Exam 02/21/20 21:48 There is about a 4 cm circumferential erythemic indurated mass with warmth and sensitivity with a fluctuant center on the posterior aspect of the left forearm no gross sensorimotor deficits neurovascular intact ED Treatment Course - Medications Given in the ED: ED Medications Discontinued Medications Generic Name Dose Route Start Last Admin Trade Name Greyson PRN Reason Stop Dose Admin Lidocaine HCl 20 ml 02/21/20 21:17 02/21/20 21:35 Xylocaine 1% SQ 02/21/20 21:18 20 ml ONCE ONE Administration Medical Decision Making - Medical Decision Making 02/21/20 21:49 Under aseptic technique, 10 cc of 1% lidocaine without epinephrine was injected into the area of the abscess bloody drainage was expressed quarter inch iodoform packing was placed and a dry sterile dressing was placed. This was tolerated well. No purulent drainage was expressed. 02/21/20 21:49 I have reviewed the pathophysiology with the patient. They are in agreement with the treatment plan all questions were answered to their satisfaction. Understanding for follow-up without fail was also conveyed to the patient. Again they are in agreement. Initial dose of antibiotics given in the emergency room patient will start p.o. antibiotics tomorrow at home initial dose again given tonight in the emergency room follow-up in 48 hours for packing removal and wound check with myself in the emergency room Discharge - Discharge Information Problems reviewed: Yes Clinical Impression/Diagnosis: Cellulitis, Abscess Condition: Stable Disposition: HOME - Admission No - Additional Discharge Information Prescriptions: Sulfamethoxazole/Trimethoprim [Bactrim Ds -] 1 tab PO BID #14 tablet Cephalexin [Keflex] 500 mg PO QID #40 capsule - Follow up/Referral Referrals: Edilberto Pradhan MD [Primary Care Provider] - Bennett Wolf MD [Staff Physician] - - Patient Discharge Instructions Additional Instructions: Please leave the dressing on for the next 48 hours. Return to the emergency room in 48 hours for packing removal and wound check.Also follow-up with general surgery in 1 to 2 days for further evaluation and treatment options. Follow-up with general surgery without fail. Please take the antibiotics as directed and continue your regular pain medication as directed. - Post Discharge Activity
[2020-02-21] MEDS ORDERED: CEPHALEXIN MONOHYDRATE 500 MG CAPSULE (UD) ONE (22:01)
== END 2020-02-21 22:09 | disposition home or self-care (01) ==
LOC: JERFT 20:47
DX: L03.114 Cellulitis of left upper limb (principal)
CPT/HCPCS: 99283-25

== ENCOUNTER 2020-02-28 15:39 | Emergency (ER) | payer OTHER ==
--- NOTE | 2020-02-28 16:13 | PDOC ---
Rapid Medical Evaluation Time Seen by Provider: 02/28/20 16:12 Medical Evaluation: Allergies Allergy/AdvReac Type Severity Reaction Status Date / Time No Known Allergies Allergy Verified 02/28/20 16:09 02/28/20 16:13 I have performed a brief in-person evaluation of this patient. The patient presents with a chief complaint of:Here for wound check of L FA abscess, packign rermoved 5 dyas ago, doing wet to dry dressing and to return to ED by FADY whittington. Pt also c/o R lower back pain r/t leg x 1 week w/ / dysuria. No n/v/f/c. H/o HTN Pertinent physical exam findings:stable I have ordered the following:ua/cx The patient will proceed to the ED for further evaluation. Discharge Disposition - Diagnosis Wound check, abscess - Discharge Dispostion Last Admission D/C Date: 11/03/17 - Referrals Referrals: Edilberto Pradhan MD [Primary Care Provider] - - Patient Instructions - Post Discharge Activity
[2020-02-28 16:14] VITALS: BP 174/78; PULSE 78; BMI 47.3
[2020-02-28 17:16] LABS: URINE APPEARANCE Clear; URINE BILIRUBIN Negative (NEGATIVE); URINE COLOR Yellow; URINE GLUCOSE (UA) Negative (NEGATIVE); URINE KETONE Negative (NEGATIVE); URINE LEUK ESTERASE Negative (NEGATIVE); URINE NITRITE Negative (NEGATIVE); URINE PROTEIN Negative (NEGATIVE); URINE UROBILINOGEN 0.2 mg/dL (0.2-1.0)
--- NOTE | 2020-02-28 17:25 | PDOC ---
History of Present Illness - General Chief Complaint: Back Pain Stated Complaint: BACK PAIN Time Seen by Provider: 02/28/20 16:12 - History of Present Illness Initial Comments: 02/28/20 17:21 69-year-old female presents for evaluation after I incised and drained an abscess on her left forearm. She is feeling better continuing her course of antibiotics. She does complain of right-sided lower back pain exacerbated with activity over the last few days no systemic symptoms or urinary symptoms. Past History - Medical History Allergies/Adverse Reactions: Allergies Allergy/AdvReac Type Severity Reaction Status Date / Time No Known Allergies Allergy Verified 02/28/20 16:09 Home Medications: Ambulatory Orders Ibuprofen [Motrin -] 600 mg PO QID #28 tablet 08/09/19 Cephalexin [Keflex] 500 mg PO QID #40 capsule 02/21/20 Sulfamethoxazole/Trimethoprim [Bactrim Ds -] 1 tab PO BID #14 tablet 02/21/20 Amlodipine Besylate [Norvasc -] 10 mg PO DAILY 02/28/20 Anemia: No Asthma: No Cancer: No Cardiac Disorders: No CVA: No COPD: No CHF: No Dementia: No Diabetes: Yes GI Disorders: No Disorders: No HTN: Yes Hypercholesterolemia: No Liver Disease: No Seizures: No Thyroid Disease: No - Surgical History Abdominal Surgery: No Appendectomy: No Cardiac Surgery: No Cholecystectomy: Yes Lung Surgery: No Neurologic Surgery: (EPIDURAL INJECTION) Orthopedic Surgery: No - Immunization History Immunization Up to Date: Yes - Psycho-Social/Smoking History Smoking Status: Yes Smoking History: Never smoked Have you smoked in the past 12 months: No Number of Cigarettes Smoked Daily: 0 - Substance Abuse Hx (Audit-C & DAST Scrn) How often the patient has a drink containing alcohol: Never Score: In Men: 4 or > Positive; In Women: 3 or > Positive: 0 Screen Result (Pos requires Nsg. Audit-10AR): Negative In the last yr the pt used illegal drug/Rx for NonMed reason: No Score: Yes response is considered Positive: 0 Screen Result (Positive result requires Nsg. DAST-10): Negative Review of Systems - Review of Systems Constitutional: No: Fever Musculoskeletal: Yes: Back Pain *Physical Exam - Vital Signs Last Vital Signs Temp Pulse Resp BP Pulse Ox 78 18 174/78 H 99 02/28/20 16:12 02/28/20 16:12 02/28/20 16:12 02/28/20 16:12 - Physical Exam 02/28/20 17:22 The abscess is healing well normal surrounding skin color and temperature with markedly less erythema no induration or warmth. Wound is healing by secondary intention with good granulation. Neurovascular intact Lumbar spine skin color temperature normal range of motion is slightly decreased. No midline tenderness. Moderate bilateral paralumbar musculature spasm and tenderness 5 out of 5 strength bilateral lower extremities without gross sensorimotor deficits thighs and calves are soft and nontender neurovascular intact ED Treatment Course - ADDITIONAL ORDERS Additional order review: Laboratory Results 02/28/20 16:21 Urine Color Yellow Urine Appearance Clear Urine pH 7.0 Ur Specific [place] 1.020 Urine Protein Negative Urine Glucose (UA) Negative Urine Ketones Negative Urine Blood Negative Urine Nitrite Negative Urine Bilirubin Negative Urine Urobilinogen 0.2 Ur Leukocyte Esterase Negative Medical Decision Making - Medical Decision Making 02/28/20 17:23 May follow-up with orthopedic surgery for lower back pain and general surgery for the remainder of wound care checks. May discontinue wet-to-dry dressings and and wash with soap and water leaving the area open to air. I have reviewed the pathophysiology with the patient. They are in agreement with the treatment plan all questions were answered to their satisfaction. Understanding for follow-up without fail was also conveyed to the patient. Again they are in agreement. Discharge - Discharge Information Problems reviewed: Yes Clinical Impression/Diagnosis: Wound check, abscess, Back pain Condition: Stable Disposition: HOME - Admission No - Follow up/Referral Referrals: Edilberto Pradhan MD [Staff Physician] - Lester King DO [Staff Physician] - - Patient Discharge Instructions Additional Instructions: Discontinue the wet-to-dry dressing changes and wash the area with soap and water 2-3 times a day leaving the area open to air. Do not apply any ointment such as bacitracin or Neosporin. Without fail follow-up with general surgery in 1 to 2 days for further evaluation and treatment options and return to the emergency room should symptoms worsen. In regards to your lower back pain you may continue to take Tylenol as directed and follow-up with orthopedic surgery in 1 to 2 days for further evaluation and treatment options with return to the emergency room should symptoms worsen. Continue and finish the antibiotics for your abscess as directed. - Post Discharge Activity
== END 2020-02-28 17:32 | disposition home or self-care (01) ==
LOC: JERFT 15:39 → JER 15:39 → SUPCPDRO 15:39 → JERFT 17:32
DX: M54.5 Low back pain (principal); Z48.00 Encounter for change or removal of nonsurgical wound dressing
CPT/HCPCS: 81003; 87086; 99283-25

== ENCOUNTER 2020-03-03 10:28 | Emergency (ER) | payer OTHER ==
[2020-03-03 10:34] VITALS: TEMP 97.7; BMI 45.5
[2020-03-03] MEDS ORDERED: ALBUTEROL SO4 2.5/IPRATROPIUM 0.5 INH SOL 3 ML VIAL.NEB. NEB ONE ×2 (11:27→12:14)
[2020-03-03 13:00] LABS: BASO % 0.5 % (0-2.0); HEMATOCRIT 38.2 % (32.4-45.2); HEMOGLOBIN 12.2 GM/dL (10.7-15.3); LYMPH % 14.3 % (8-40); MCHC 31.9 g/dl (32.0-36.0); MEAN CELL VOLUME 81.4 fl (80-96); MEAN PLT VOLUME 8.2 fl (7.5-11.1); MONO % 3.5 % (3.8-10.2); NEUT % 81.7 % (42.8-82.8); PLATELET COUNT 335 K/MM3 (134-434); RBC 4.69 M/mm3 (3.60-5.2); RDW 19.9 % (11.6-15.6); WHITE BLOOD COUNT 13.9 K/mm3 (4.0-10.0)
[2020-03-03] MEDS ORDERED: AZITHROMYCIN 250 MG TABLET PO ONE (13:06)
--- NOTE | 2020-03-03 13:06 | PDOC ---
History of Present Illness - General Chief Complaint: Shortness of Breath Stated Complaint: COUGH/PAIN Time Seen by Provider: 03/03/20 10:51 History Source: Patient - History of Present Illness Initial Comments: 03/03/20 12:42 69F PMH HTN HLD DM COPD CHF c/o 3 days of cough and increased SOB. Has an occa sional chronic cough but this episode is more productive. FIGUEORA x months. No f/c. No chest pain. Endorses occasional nausea and two episodes of loose stool today. Was started on prednisone recently. NKDA. Pt accompanied by daughter. Past History - Medical History Allergies/Adverse Reactions: Allergies Allergy/AdvReac Type Severity Reaction Status Date / Time No Known Allergies Allergy Verified 03/03/20 10:30 Home Medications: Ambulatory Orders Amlodipine Besylate [Norvasc -] 5 mg PO DAILY 02/28/20 Atorvastatin Ca [Lipitor] 10 mg PO HS 03/03/20 Azithromycin [Zithromax 250mg Tablets -] 250 mg PO UTDICT #6 tab 03/03/20 Metformin HCl [Glucophage] 500 mg PO BID 03/03/20 Methylprednisolone [Methylpred Dp] 0 mg PO DAILY 03/03/20 Naproxen 500 mg PO BID 03/03/20 Anemia: No Asthma: No Cancer: No Cardiac Disorders: No CVA: No COPD: No CHF: No Dementia: No Diabetes: Yes GI Disorders: No Disorders: No HTN: Yes Hypercholesterolemia: Yes Liver Disease: No Seizures: No Thyroid Disease: No Other medical history: chronic back pain - Surgical History Abdominal Surgery: No Appendectomy: No Cardiac Surgery: No Cholecystectomy: Yes Lung Surgery: No Neurologic Surgery: (EPIDURAL INJECTION) Orthopedic Surgery: No - Reproductive History Is Patient Now?: No - Immunization History Immunization Up to Date: Yes - Psycho-Social/Smoking History Smoking Status: Yes Smoking History: Former smoker Have you smoked in the past 12 months: No Number of Cigarettes Smoked Daily: 0 Information on smoking cessation initiated: No - Substance Abuse Hx (Audit-C & DAST Scrn) How often the patient has a drink containing alcohol: Never Score: In Men: 4 or > Positive; In Women: 3 or > Positive: 0 Screen Result (Pos requires Nsg. Audit-10AR): Negative Review of Systems - Review of Systems Comments:: 03/03/20 22:25 CONSTITUTIONAL: Denies F / C HEENT: Denies headache, lightheadedness, dizziness, changes in vision / hearing, diplopia, blurry vision, sore throat, rhinorrhea RESP: Denies SOB, cough, orthopnea, FIGUEROA CARD: Denies chest pain, palpitations GI: Denies N / V / D, abdominal pain, bloody stool, inability to tolerate PO : Denies dysuria, hematuria, frequency NEURO: Denies numbness, tingling, weakness MSK: Denies back pain SKIN: Denies rashes *Physical Exam - Vital Signs Last Vital Signs Temp Pulse Resp BP Pulse Ox 97.7 F 88 18 151/58 L 99 03/03/20 10:31 03/03/20 10:31 03/03/20 10:31 03/03/20 10:31 03/03/20 10:31 - Physical Exam 03/03/20 22:25 GEN: Well appearing, NAD, AAOx3. HEENT: NC/AT, EOMI. No facial asymmetry. Normal voice. Supple neck w/ FROM. CV: S1/S2, RRR, no m/r/g LUNG: Largely CTAB, very scant occasional end expiratory wheezing vs upper airway sounds, no crackles GI: Soft, ndnt, +BS, no guarding MSK: No LE edema. No obvious deformities of all extremities. SKIN: Warm, dry, no rashes appreciated. PSYCH: Normal mood and affect. NEURO: Moving all extremities well. ambulates wnl ED Treatment Course - LABORATORY CBC & Chemistry Diagram: 03/03/20 12:51 03/03/20 12:51 - RADIOLOGY Radiology Studies Ordered: Category Date Time Status CHEST PA & LAT [RAD] Stat Radiology 03/03/20 11:29 Ordered - Medications Given in the ED: ED Medications Discontinued Medications Generic Name Dose Route Start Last Admin Trade Name Freq PRN Reason Stop Dose Admin Albuterol/Ipratropium 2 amp 03/03/20 11:27 03/03/20 12:17 Duoneb - NEB 03/03/20 11:28 2 amp ONCE ONE Administration Medical Decision Making - Medical Decision Making 03/03/20 22:25 03/03/20 12:42 69F w/ 3 days of increased productive cough and increased SOB. FIGUEROA for months. Mostly CTAB. Likely COPD exacerbation; less likely CHF exacerbation; will check for acute cardiac ischemia - cardiac labs - CXR - EKG - duonebs - azithromycin 03/03/20 13:18 labs reviewed, WBC likely 2/2 recent steroids, awaiting chemistries 03/03/20 13:26 EKG 11:39 HR 87 intervals and axis wnl, sinus, no KESHIA/D, no TWI; poor baseline quality. 03/03/20 13:54 plan to dc home w/ pcp f/u z-pack sent to pharmacy Discharge - Discharge Information Problems reviewed: Yes Clinical Impression/Diagnosis: COPD exacerbation Condition: Stable Disposition: HOME - Admission No - Additional Discharge Information Prescriptions: Azithromycin [Zithromax 250mg Tablets -] 250 mg PO UTDICT #6 tab - Follow up/Referral Referrals: Kayden Guadalupe MD [Primary Care Provider] - - Patient Discharge Instructions Patient Printed Discharge Instructions: DI for Chronic Obstructive Pulmonary Disease Additional Instructions: We sent antibiotics to [facility]; please pick them up and take as prescribed. Continue taking your home medications as prescribed. Your chest x-ray and lab work were reassuring. Follow up with your Primary Care Doctor regarding this Emergency Department visit in the next 5-10 days. Please bring up the concerns you expressed regarding the prior lung nodules. Return to the Emergency Department if you experience any new or worsening symptoms. - Post Discharge Activity
[2020-03-03] MEDS ORDERED: AZITHROMYCIN 250 MG TABLET ONE (13:10)
--- NOTE | 2020-03-03 13:10 | PDOC ---
Attending Attestation - Resident Resident Name: Jose Bowden - ED Attending Attestation I have performed the following: I have examined & evaluated the patient, The case was reviewed & discussed with the resident, I agree w/resident's findings & plan - HPI HPI: 03/03/20 13:09 69F PMH HTN HLD DM COPD CHF, lung nodules c/o 3 days of cough and increased SOB. Has an occasional chronic cough but this episode is more productive. FIGUEROA x months. No f/c. No chest pain. Endorses occasional nausea and two episodes of loose stool today. NKDA. - Physicial Exam PE: 03/03/20 13:12 Agree with the resident's HPI and PE as documented in the electronic medical record. NAD, well appearing, EOMI, PERRL, nl conjunctiva, anicteric; neck supple. lungs clear, RRR, abdomen soft nontender. no rebound, guarding. Back nontender. TORREZ x4, no focal neuro deficits. No peripheral edema. normal color for ethnicity, WWP. - Medical Decision Making 03/03/20 13:40 Vital Signs Temp Pulse Resp BP Pulse Ox 97.7 F 88 18 151/58 L 99 03/03/20 10:31 03/03/20 10:31 03/03/20 10:31 03/03/20 10:31 03/03/20 10:31 vitals reviewed, wnl, normal sats, no distress DDx SOB: ACS, PE, PTX, CHF, COPD exac, pulmonary edema, pleurisy, pneumonia, viral syndrome. effusion. anemia, electrolyte/metabolic derangements. Considered but clinically doubt based on HPI and PE: Low suspicion for pulmonary embolism or dissection. Interpreted by ED Physician: CXR (2 view): no acute abnormality: no infiltrates, bones appear intact and structures normal alignment, cardiac silhouette within normal limits. no free air under diaphragm, no pneumothorax. EKG normal sinus rhythm, no interval abnormalities, narrow QRS, ST and T wave segments and morphology normal. Nonspecific T wave abnormalities, unchanged from prior labs and lytes wnl. leukocytosis likely due to recent start of steroid course. neg trop, reassuring, less likely cardiac/ACS likely copd flare feels better after duoneb on steroids already azithromycin course, given h/o copd normal sats, no respiratory distress Pt to be discharged in stable condition. Patient and family made aware of clinical impression, treatment recommendations and disposition plan, return precautions discussed (including but not limited to new or persistent/worsening symptoms, pain, fevers, or signs of infection, chest pain, respiratory distress, inability to tolerate oral intake, dehydration, syncope, or neurologic changes). Follow up with PMD and/or specialist as recommended, follow up information provided, take medications as instructed for duration of time. continue with supportive care, avoid triggers and precipitants. All questions answered to patient's satisfaction and expressed understanding and comfort with this. At the time of discharge, the patient is alert, clinically improved, tolerating po and verbalizes understanding of instructions, satisfied with the care received and felt comfortable with the plan. Patient does not suffer from an acute life- threatening medical condition at this time and is safe for outpatient follow- up. 03/03/20 16:14 Heart Score/ECG Review #1 ECG reviewed & interpreted by me at: 11:40 General ECG Interpretation: Sinus Rhythm, Normal Rate, Normal Intervals 03/03/20 13:13 EKG normal sinus rhythm 87 bpm, no interval abnormalities, narrow QRS, ST and T wave segments and morphology normal. Nonspecific T wave abnormalities Discharge - Discharge Information Problems reviewed: Yes Clinical Impression/Diagnosis: COPD exacerbation Condition: Stable Disposition: HOME - Admission No - Additional Discharge Information Prescriptions: Azithromycin [Zithromax 250mg Tablets -] 250 mg PO UTDICT #6 tab - Follow up/Referral Referrals: Kayden Guadalupe MD [Primary Care Provider] - - Patient Discharge Instructions Patient Printed Discharge Instructions: DI for Chronic Obstructive Pulmonary Disease Additional Instructions: We sent antibiotics to [facility]; please pick them up and take as prescribed. Continue taking your home medications as prescribed. Your chest x-ray and lab work were reassuring. Follow up with your Primary Care Doctor regarding this Emergency Department visit in the next 5-10 days. Please bring up the concerns you expressed regarding the prior lung nodules. Return to the Emergency Department if you experience any new or worsening symptoms. - Post Discharge Activity
[2020-03-03 13:29] LABS: ALBUMIN 4.1 g/dl (3.4-5.0); ALK PHOS 84 U/L (45-117); ANION GAP 8 MMOL/L (8-16); BILIRUBIN,TOTAL 0.5 mg/dL (0.2-1); BLOOD UREA NITROGEN 18.9 mg/dL (7-18); CALCIUM 8.7 mg/dL (8.5-10.1); CHLORIDE 104 mmol/L (98-107); CO2 26 mmol/L (21-32); CREATININE 0.8 mg/dL (0.55-1.3); LIPASE 103 U/L (73-393); POTASSIUM 4.7 mmol/L (3.5-5.1); SGOT/AST 23 U/L (15-37); SGPT/ALT 23 U/L (13-61); SODIUM 138 mmol/L (136-145); TOT PROT 7.7 g/dl (6.4-8.2)
[2020-03-03 14:14] LABS: GLUCOSE,RANDOM 149 mg/dL (74-106)
[2020-03-03 14:44] VITALS: BP 128/57; PULSE 81
--- NOTE | 2020-03-06 22:03 | EKG ---
Test Reason : Blood Pressure : / mmHG Vent. Rate : 087 BPM Atrial Rate : 087 BPM P-R Int : 134 ms QRS Dur : 074 ms QT Int : 374 ms P-R-T Axes : 049 -06 016 degrees QTc Int : 450 ms SINUS RHYTHM WITH PREMATURE ATRIAL COMPLEXES MODERATE VOLTAGE CRITERIA FOR LVH, MAY BE NORMAL VARIANT BORDERLINE ECG WHEN COMPARED WITH ECG OF 30-OCT-2017 03:21, PREMATURE ATRIAL COMPLEXES ARE NOW PRESENT Confirmed by LIONEL MELARA, DONAVAN ([id number]) on 03/06/2020 10:03:13 PM Referred By: Confirmed By:DONAVAN FLOWERS MD
== END 2020-03-03 14:54 | disposition home or self-care (01) ==
LOC: JER 10:28
PROC: 3E0F7GC Introduction of Other Therapeutic Substance into Respiratory Tract, Via Natural or Artificial Opening (ICD-10-PCS; principal; 2020-03-03)
DX: J44.1 Chronic obstructive pulmonary disease with (acute) exacerbation (principal)
CPT/HCPCS: 36415; 71046-TC-FY; 80053; 82550; 83690; 84484; 85025; 93005; 93010; 99285-25

== ENCOUNTER 2021-08-09 11:37 | Inpatient (IN) | payer OTHER ==
[2021-08-09] MEDS ORDERED: ALBUTEROL SO4 2.5/IPRATROPIUM 0.5 INH SOL 3 ML VIAL.NEB. NEB ONE ×2 (12:18→12:22)
[2021-08-09 12:44] LABS: BASO % 0.5 % (0-2.0); EOS % 0.2 % (0-4.5); HEMATOCRIT 35.6 % (32.4-45.2); HEMOGLOBIN 11.6 GM/dL (10.7-15.3); MCH 26.2 pg (25.7-33.7); MCHC 32.7 g/dl (32.0-36.0); MEAN CELL VOLUME 80.2 fl (80-96); MEAN PLT VOLUME 7.9 fl (7.5-11.1); MONO % 4.6 % (3.8-10.2); NEUT % 84.7 % (42.8-82.8); PLATELET COUNT 283 10^3/uL (134-434); RBC 4.44 M/mm3 (3.60-5.2); RDW 15.9 % (11.6-15.6)
[2021-08-09 12:45] LABS: VENOUS BASE EXCESS 0.4 mmol/L (-2-2); VENOUS O2 SATURATION 76.2 % (70-80); VENOUS PCO2 39.2 mmHg (38-52); VENOUS PH 7.419 (7.310-7.410)
[2021-08-09 12:49] LABS: INR 1.17 (0.83-1.09); PROTHROMBIN TIME (PATIENT) 13.5 SEC (9.7-13.0)
[2021-08-09 12:52] LABS: ACTIVATED PTT 31.7 SECONDS (25.2-36.5)
[2021-08-09] MEDS ORDERED: AZITHROMYCIN IVPB 500 MG in DEXTROSE 5%-WATER - 250 ML IVPB ONE (12:55)
[2021-08-09] MEDS ORDERED: CEFTRIAXONE 1,000 MG in DEXTROSE 5%-WATER - 50 ML IVPB ONE (12:55)
[2021-08-09 13:04] LABS: CHLORIDE 107 mmol/L (98-107); SODIUM 139 mmol/L (136-145)
[2021-08-09] MEDS ORDERED: AZITHROMYCIN IVPB 500 MG/250 ML BAG IVPB ONE (13:05)
[2021-08-09] MEDS ORDERED: CEFTRIAXONE 1 GM/50 ML BAG ONE (13:05)
[2021-08-09 13:10] LABS: ALBUMIN 3.4 g/dl (3.4-5.0); ANION GAP 7 MMOL/L (8-16); BLOOD UREA NITROGEN 10.8 mg/dL (7-18); CALCIUM 8.8 mg/dL (8.5-10.1); CO2 26 mmol/L (21-32); GLUCOSE,RANDOM 130 mg/dL (74-106); MAGNESIUM 2.2 mg/dL (1.8-2.4)
[2021-08-09 13:13] LABS: CREATININE 0.6 mg/dL (0.55-1.3); PHOSPHOROUS 2.8 mg/dL (2.5-4.9); SGOT/AST 20 U/L (15-37)
[2021-08-09 13:14] LABS: SGPT/ALT 20 U/L (13-61)
[2021-08-09 13:15] LABS: BILIRUBIN,TOTAL 1.2 mg/dL (0.2-1); TOT PROT 6.9 g/dl (6.4-8.2)
[2021-08-09 13:16] LABS: ALK PHOS 82 U/L (45-117)
[2021-08-09 13:18] LABS: N-TERMINAL BNP 287.6 pg/ml (5-125)
[2021-08-09] MEDS ORDERED: ASPIRIN 81 MG CHEWABLE TABLETS PO ONE (13:42)
[2021-08-09] MEDS ORDERED: ASPIRIN 81 MG CHEWABLE TABLETS ONE (13:49)
[2021-08-09] MEDS ORDERED: ACETAMINOPHEN 1000 MG/100 ML BAG IVPB ONE (18:44)
[2021-08-09] MEDS ORDERED: ACETAMINOPHEN INJECTION 100 ML IVPB ONE (18:46)
[2021-08-09] MEDS ORDERED: HEPARIN NA (PORCINE) 5,000 UNITS/ML 1ML VIAL ONE (22:01)
[2021-08-09] MEDS ORDERED: ATORVASTATIN CA 10 MG TABLET (FP) ONE (22:01)
[2021-08-09] MEDS ORDERED: metFORMIN HCL 500 MG TABLET (FP) ONE (22:01)
[2021-08-09] MEDS: ATORVASTATIN CA 10 MG TABLET (FP) PO SCH (22:12)
[2021-08-09] MEDS: metFORMIN HCL 500 MG TABLET (FP) PO SCH (22:12)
[2021-08-09] MEDS: HEPARIN NA (PORCINE) 5,000 UNITS/ML 1ML VIAL SQ SCH (22:12)
[2021-08-10 00:10] VITALS: BMI 39.6
[2021-08-10] MEDS: INSULIN SLIDING SCALE (NOVOLOG) 1 VIAL SQ SCH ×4 (06:03→22:04)
[2021-08-10 06:44] LABS: BASO % 0.6 % (0-2.0); EOS % 2.2 % (0-4.5); HEMATOCRIT 35.1 % (32.4-45.2); HEMOGLOBIN 10.9 GM/dL (10.7-15.3); LYMPH % 25.7 % (8-40); MCH 25.5 pg (25.7-33.7); MEAN CELL VOLUME 82.3 fl (80-96); MEAN PLT VOLUME 8.6 fl (7.5-11.1); MONO % 8.2 % (3.8-10.2); NEUT % 63.3 % (42.8-82.8); PLATELET COUNT 262 10^3/uL (134-434); RBC 4.27 M/mm3 (3.60-5.2); RDW 15.9 % (11.6-15.6); WHITE BLOOD COUNT 6.1 K/mm3 (4.0-10.0)
[2021-08-10 07:05] LABS: ALBUMIN 3.1 g/dl (3.4-5.0); CALCIUM 8.6 mg/dL (8.5-10.1)
[2021-08-10 07:09] LABS: CREATININE 0.5 mg/dL (0.55-1.3)
[2021-08-10 07:10] LABS: TOT PROT 6.5 g/dl (6.4-8.2)
[2021-08-10 07:11] LABS: BILIRUBIN,TOTAL 0.6 mg/dL (0.2-1)
[2021-08-10] MEDS ORDERED: DEXTROSE 5%-WATER - 50 ML IVPB ONE (09:44)
[2021-08-10] MEDS ORDERED: cefTRIAXone SODIUM 1 GM VIAL ONE (09:44)
[2021-08-10] MEDS: amLODIPine BESYLATE 5 MG TABLET (FP) PO SCH (09:51)
[2021-08-10] MEDS: HEPARIN NA (PORCINE) 5,000 UNITS/ML 1ML VIAL SQ SCH ×2 (09:51→21:37)
[2021-08-10] MEDS: metFORMIN HCL 500 MG TABLET (FP) PO SCH ×2 (09:51→21:37)
[2021-08-10] MEDS: CEFTRIAXONE 1 GM in DEXTROSE 5%-WATER - 50 ML IVPB SCH (09:53)
[2021-08-10] MEDS: AZITHROMYCIN IVPB 250 MG in DEXTROSE 5%-WATER - 250 ML IVPB SCH (10:27)
[2021-08-10] MEDS: ACETAMINOPHEN 325 MG TABLET (FP) PO PRN ×2 (11:18→20:11)
[2021-08-10] MEDS: methylPREDNISolone NA SUCC 40 MG/1 ML VIAL IVPUSH SCH ×2 (14:30→17:31)
[2021-08-10] MEDS: ATORVASTATIN CA 10 MG TABLET (FP) PO SCH (21:37)
[2021-08-11] MEDS: ACETAMINOPHEN 325 MG TABLET (FP) PO PRN ×2 (02:13→17:59)
[2021-08-11] MEDS: methylPREDNISolone NA SUCC 40 MG/1 ML VIAL IVPUSH SCH ×3 (02:13→17:58)
[2021-08-11] MEDS ORDERED: cefTRIAXone SODIUM 1 GM VIAL ONE (09:44)
[2021-08-11] MEDS ORDERED: DEXTROSE 5%-WATER - 50 ML IVPB ONE (09:44)
[2021-08-11] MEDS: metFORMIN HCL 500 MG TABLET (FP) PO SCH (09:53)
[2021-08-11] MEDS: amLODIPine BESYLATE 5 MG TABLET (FP) PO SCH (09:53)
[2021-08-11] MEDS: HEPARIN NA (PORCINE) 5,000 UNITS/ML 1ML VIAL SQ SCH ×2 (09:54→21:28)
[2021-08-11] MEDS: CEFTRIAXONE 1 GM in DEXTROSE 5%-WATER - 50 ML IVPB SCH (09:55)
[2021-08-11] MEDS: AZITHROMYCIN IVPB 250 MG in DEXTROSE 5%-WATER - 250 ML IVPB SCH (09:55)
[2021-08-11] MEDS: INSULIN SLIDING SCALE (NOVOLOG) 1 VIAL SQ SCH ×3 (12:09→21:35)
[2021-08-11] MEDS ORDERED: ALBUTEROL SO4 2.5/IPRATROPIUM 0.5 INH SOL 3 ML VIAL.NEB. NEB PRN (12:55)
[2021-08-11] MEDS: ATORVASTATIN CA 10 MG TABLET (FP) PO SCH (21:29)
[2021-08-12] MEDS: ACETAMINOPHEN 325 MG TABLET (FP) PO PRN (00:01)
[2021-08-12] MEDS: methylPREDNISolone NA SUCC 40 MG/1 ML VIAL IVPUSH SCH ×3 (01:32→17:20)
[2021-08-12] MEDS: INSULIN SLIDING SCALE (NOVOLOG) 1 VIAL SQ SCH ×4 (06:23→21:58)
[2021-08-12] MEDS ORDERED: cefTRIAXone SODIUM 1 GM VIAL ONE (08:27)
[2021-08-12] MEDS ORDERED: DEXTROSE 5%-WATER - 50 ML IVPB ONE (08:28)
[2021-08-12 08:54] LABS: HEMATOCRIT 37.4 % (32.4-45.2); HEMOGLOBIN 11.9 GM/dL (10.7-15.3); MCH 25.5 pg (25.7-33.7); MCHC 31.9 g/dl (32.0-36.0); MEAN PLT VOLUME 8.4 fl (7.5-11.1); PLATELET COUNT 430 10^3/uL (134-434); RBC 4.67 M/mm3 (3.60-5.2); RDW 15.6 % (11.6-15.6); WHITE BLOOD COUNT 15.9 K/mm3 (4.0-10.0)
[2021-08-12] MEDS: CEFTRIAXONE 1 GM in DEXTROSE 5%-WATER - 50 ML IVPB SCH (08:59)
[2021-08-12] MEDS: HEPARIN NA (PORCINE) 5,000 UNITS/ML 1ML VIAL SQ SCH ×2 (09:00→21:56)
[2021-08-12] MEDS: amLODIPine BESYLATE 5 MG TABLET (FP) PO SCH (09:00)
[2021-08-12 09:06] LABS: ALBUMIN 3.6 g/dl (3.4-5.0); CALCIUM 8.7 mg/dL (8.5-10.1)
[2021-08-12 09:10] LABS: CREATININE 0.6 mg/dL (0.55-1.3)
[2021-08-12 09:11] LABS: BILIRUBIN,TOTAL 0.5 mg/dL (0.2-1); TOT PROT 7.2 g/dl (6.4-8.2)
[2021-08-12] MEDS: AZITHROMYCIN IVPB 250 MG in DEXTROSE 5%-WATER - 250 ML IVPB SCH (09:17)
[2021-08-12 11:28] LABS: ANISOCYTOSIS 1+; MACROCYTOSIS 0; PLATELET ESTIMATE NORMAL
[2021-08-12] MEDS: VALSARTAN 80 MG TABLET PO SCH (14:06)
[2021-08-12] MEDS: ASPIRIN COATED 81 MG TABLET.EC PO SCH (14:06)
[2021-08-12] MEDS: POLYETHYLENE GLYCOL (HEALTHYLAX) 3350 17 GM PACKET PO SCH (16:24)
[2021-08-12] MEDS: MELATONIN 5 MG TABLETS PO PRN (21:57)
[2021-08-12] MEDS: ATORVASTATIN CA 10 MG TABLET (FP) PO SCH (21:57)
[2021-08-13] MEDS: guaiFENesin 200 MG/10 ML 10 ML UNIT-DOSE CUPS PO PRN ×2 (00:52→22:41)
[2021-08-13] MEDS: methylPREDNISolone NA SUCC 40 MG/1 ML VIAL IVPUSH SCH ×3 (02:11→22:28)
[2021-08-13] MEDS: INSULIN SLIDING SCALE (NOVOLOG) 1 VIAL SQ SCH ×5 (06:11→22:29)
[2021-08-13] MEDS ORDERED: METOPROLOL TARTRATE 5 MG/5 ML VIAL ONE (07:15)
[2021-08-13 07:29] LABS: BASO % 0.3 % (0-2.0); HEMATOCRIT 39.5 % (32.4-45.2); HEMOGLOBIN 12.7 GM/dL (10.7-15.3); LYMPH % 9.1 % (8-40); MCH 25.8 pg (25.7-33.7); MCHC 32.1 g/dl (32.0-36.0); MEAN CELL VOLUME 80.5 fl (80-96); MEAN PLT VOLUME 8.4 fl (7.5-11.1); MONO % 2.8 % (3.8-10.2); NEUT % 87.8 % (42.8-82.8); PLATELET COUNT 402 10^3/uL (134-434); WHITE BLOOD COUNT 13.2 K/mm3 (4.0-10.0)
[2021-08-13 07:38] LABS: CALCIUM 8.8 mg/dL (8.5-10.1)
[2021-08-13 07:39] LABS: ALBUMIN 3.5 g/dl (3.4-5.0); BLOOD UREA NITROGEN 21.3 mg/dL (7-18)
[2021-08-13 07:41] LABS: CREATININE 0.6 mg/dL (0.55-1.3)
[2021-08-13 07:43] LABS: BILIRUBIN,TOTAL 0.5 mg/dL (0.2-1); TOT PROT 7.2 g/dl (6.4-8.2)
[2021-08-13] MEDS: POLYETHYLENE GLYCOL (HEALTHYLAX) 3350 17 GM PACKET PO SCH (09:54)
[2021-08-13] MEDS: ASPIRIN COATED 81 MG TABLET.EC PO SCH (09:54)
[2021-08-13] MEDS: amLODIPine BESYLATE 5 MG TABLET (FP) PO SCH (09:54)
[2021-08-13] MEDS: VALSARTAN 80 MG TABLET PO SCH (09:54)
[2021-08-13] MEDS: HEPARIN NA (PORCINE) 5,000 UNITS/ML 1ML VIAL SQ SCH (09:55)
[2021-08-13] MEDS: metoPROLOL SUCCINATE 25 MG TAB.SR.24H (FP) PO SCH (09:55)
[2021-08-13] MEDS: ACETAMINOPHEN 325 MG TABLET (FP) PO PRN ×2 (11:30→22:31)
[2021-08-13] MEDS: APIXABAN 5 MG TABLET PO SCH ×2 (13:59→22:28)
[2021-08-13] MEDS: dilTIAZem HCL 60 MG TABLET PO SCH ×2 (13:59→17:30)
[2021-08-13] MEDS ORDERED: METOPROLOL TARTRATE 5 MG/5 ML VIAL IVPUSH PRN (14:02)
[2021-08-13] MEDS: ATORVASTATIN CA 10 MG TABLET (FP) PO SCH (22:28)
[2021-08-13] MEDS: DOCUSATE SODIUM 100 MG CAPSULE (FP) PO SCH (22:28)
[2021-08-13] MEDS: MELATONIN 5 MG TABLETS PO PRN (22:28)
[2021-08-14] MEDS: dilTIAZem HCL 60 MG TABLET PO SCH ×4 (00:14→17:57)
[2021-08-14] MEDS: INSULIN SLIDING SCALE (NOVOLOG) 1 VIAL SQ SCH ×4 (06:18→21:27)
[2021-08-14] MEDS: VALSARTAN 80 MG TABLET PO SCH (11:09)
[2021-08-14] MEDS: methylPREDNISolone NA SUCC 40 MG/1 ML VIAL IVPUSH SCH ×2 (11:10→21:26)
[2021-08-14] MEDS: metoPROLOL SUCCINATE 25 MG TAB.SR.24H (FP) PO SCH (11:10)
[2021-08-14] MEDS: APIXABAN 5 MG TABLET PO SCH ×2 (11:10→21:26)
[2021-08-14] MEDS: POLYETHYLENE GLYCOL (HEALTHYLAX) 3350 17 GM PACKET PO SCH (11:10)
[2021-08-14] MEDS: ATORVASTATIN CA 10 MG TABLET (FP) PO SCH (21:26)
[2021-08-14] MEDS: DOCUSATE SODIUM 100 MG CAPSULE (FP) PO SCH (21:26)
[2021-08-14] MEDS: MELATONIN 5 MG TABLETS PO PRN (21:26)
[2021-08-14] MEDS: guaiFENesin 200 MG/10 ML 10 ML UNIT-DOSE CUPS PO PRN (21:27)
[2021-08-14] MEDS: SENNOSIDES 8.6MG TABLET (FP) PO PRN (22:44)
[2021-08-15] MEDS: dilTIAZem HCL 60 MG TABLET PO SCH ×2 (00:57→07:00)
[2021-08-15] MEDS: INSULIN SLIDING SCALE (NOVOLOG) 1 VIAL SQ SCH ×4 (07:05→22:40)
[2021-08-15 07:35] LABS: HEMATOCRIT 38.2 % (32.4-45.2); HEMOGLOBIN 12.3 GM/dL (10.7-15.3); MCH 25.8 pg (25.7-33.7); MCHC 32.1 g/dl (32.0-36.0); MEAN CELL VOLUME 80.4 fl (80-96); MEAN PLT VOLUME 8.3 fl (7.5-11.1); MONO % 3.3 % (3.8-10.2); NEUT % 85.7 % (42.8-82.8); PLATELET COUNT 389 10^3/uL (134-434); RBC 4.76 M/mm3 (3.60-5.2); RDW 15.8 % (11.6-15.6)
[2021-08-15 08:12] LABS: ALBUMIN 3.2 g/dl (3.4-5.0)
[2021-08-15 08:14] LABS: BLOOD UREA NITROGEN 26.8 mg/dL (7-18); CALCIUM 8.4 mg/dL (8.5-10.1); CREATININE 0.6 mg/dL (0.55-1.3)
[2021-08-15 08:16] LABS: BILIRUBIN,TOTAL 0.7 mg/dL (0.2-1)
[2021-08-15 08:17] LABS: TOT PROT 6.4 g/dl (6.4-8.2)
[2021-08-15] MEDS: POLYETHYLENE GLYCOL (HEALTHYLAX) 3350 17 GM PACKET PO SCH (08:59)
[2021-08-15] MEDS: metoPROLOL SUCCINATE 25 MG TAB.SR.24H (FP) PO SCH (08:59)
[2021-08-15] MEDS: methylPREDNISolone NA SUCC 40 MG/1 ML VIAL IVPUSH SCH ×2 (08:59→22:36)
[2021-08-15] MEDS: VALSARTAN 80 MG TABLET PO SCH (08:59)
[2021-08-15] MEDS: APIXABAN 5 MG TABLET PO SCH ×2 (08:59→22:36)
[2021-08-15] MEDS: guaiFENesin 200 MG/10 ML 10 ML UNIT-DOSE CUPS PO PRN (09:35)
[2021-08-15] MEDS ORDERED: BISACODYL 10 MG SUPP.RECT PR ONE (17:00)
[2021-08-15] MEDS: DOCUSATE SODIUM 100 MG CAPSULE (FP) PO SCH (22:35)
[2021-08-15] MEDS: ATORVASTATIN CA 10 MG TABLET (FP) PO SCH (22:36)
[2021-08-15] MEDS: MELATONIN 5 MG TABLETS PO PRN (22:36)
[2021-08-15] MEDS: SENNOSIDES 8.6MG TABLET (FP) PO PRN (22:36)
[2021-08-15] MEDS: ACETAMINOPHEN 325 MG TABLET (FP) PO PRN (22:41)
[2021-08-16] MEDS: INSULIN SLIDING SCALE (NOVOLOG) 1 VIAL SQ SCH ×2 (06:05→11:51)
[2021-08-16 07:40] VITALS: TEMP 97.9
[2021-08-16 08:33] VITALS: BP 139/82; PULSE 105
[2021-08-16] MEDS: methylPREDNISolone NA SUCC 40 MG/1 ML VIAL IVPUSH SCH (10:07)
[2021-08-16] MEDS: POLYETHYLENE GLYCOL (HEALTHYLAX) 3350 17 GM PACKET PO SCH (10:08)
[2021-08-16] MEDS: VALSARTAN 80 MG TABLET PO SCH (10:09)
[2021-08-16] MEDS: metoPROLOL SUCCINATE 25 MG TAB.SR.24H (FP) PO SCH (10:09)
[2021-08-16] MEDS: APIXABAN 5 MG TABLET PO SCH (10:09)
== END 2021-08-16 15:46 | disposition home or self-care (01) | DRG 190 ==
LOC: JER 11:37 → UNDOADMOB 12:58 → JERBED 12:58 → INTOOBSV 19:29 → OBSVTOIN 19:29 → J4W 23:54
PROVIDERS: ADMIT Internal Medicine; ATTEND Internal Medicine
DX: J44.0 Chronic obstructive pulmonary disease with (acute) lower respiratory infection (principal); J18.9 Pneumonia, unspecified organism; J98.11 Atelectasis; J44.1 Chronic obstructive pulmonary disease with (acute) exacerbation; I10 Essential (primary) hypertension; E11.65 Type 2 diabetes mellitus with hyperglycemia; F03.90 Unspecified dementia, unspecified severity, without behavioral disturbance, psychotic disturbance, mood disturbance, and anxiety; E78.00 Pure hypercholesterolemia, unspecified; R07.89 Other chest pain; E66.9 Obesity, unspecified; Z68.39 Body mass index [BMI] 39.0-39.9, adult; I48.91 Unspecified atrial fibrillation
CPT/HCPCS: 36415; 71045-TC-FY; 71250-TC; 80053; 80061; 82550; 82803; 82962; 83036; 83735; 83880; 84100; 84443; 84484; 85025; 85610; 85730; 87070; 87205; 87804; 93005; 93010; 93306-TC; 94761; 99285-25; C9803; J0131; J1644; U0003; U0005

== ENCOUNTER 2022-03-07 02:04 | Emergency (ER) | payer OTHER ==
[2022-03-07 03:21] VITALS: BMI 35.5
[2022-03-07] MEDS ORDERED: ACETAMINOPHEN 1000 MG/100 ML BAG IVPB ONE (03:41)
[2022-03-07] MEDS ORDERED: ACETAMINOPHEN INJECTION 100 ML IVPB ONE (03:43)
[2022-03-07 04:04] LABS: EOS % 1.1 % (0-4.5); HEMATOCRIT 34.3 % (32.4-45.2); HEMOGLOBIN 11.1 GM/dL (10.7-15.3); LYMPH % 27.6 % (8-40); MCH 24.4 pg (25.7-33.7); MCHC 32.3 g/dl (32.0-36.0); MEAN CELL VOLUME 75.5 fl (80-96); MEAN PLT VOLUME 8.4 fl (7.5-11.1); MONO % 10.5 % (3.8-10.2); NEUT % 59.8 % (42.8-82.8); PLATELET COUNT 330 10^3/uL (134-434); RBC 4.54 M/mm3 (3.60-5.2); RDW 16.9 % (11.6-15.6)
[2022-03-07 04:05] LABS: URINE APPEARANCE CLEAR; URINE BILIRUBIN NEGATIVE (NEGATIVE); URINE COLOR YELLOW; URINE GLUCOSE (UA) NEGATIVE (NEGATIVE); URINE KETONE NEGATIVE (NEGATIVE); URINE LEUK ESTERASE NEGATIVE (NEGATIVE); URINE NITRITE NEGATIVE (NEGATIVE); URINE PROTEIN NEGATIVE (NEGATIVE); URINE UROBILINOGEN 0.2 mg/dL (0.2-1.0)
[2022-03-07 04:14] LABS: INR 1.05 (0.83-1.09); PROTHROMBIN TIME (PATIENT) 12.1 SEC (9.7-13.0)
[2022-03-07 04:24] LABS: CALCIUM 8.5 mg/dL (8.5-10.1)
[2022-03-07 04:25] LABS: ALBUMIN 3.5 g/dl (3.4-5.0); BLOOD UREA NITROGEN 15.3 mg/dL (7-18)
[2022-03-07 04:28] LABS: CREATININE 0.5 mg/dL (0.55-1.3)
[2022-03-07 04:29] LABS: BILIRUBIN,TOTAL 0.7 mg/dL (0.2-1); TOT PROT 6.8 g/dl (6.4-8.2)
[2022-03-07] MEDS ORDERED: KETOROLAC TROMETHAMINE 15 MG/ML VIAL IVPUSH ONE (05:01)
[2022-03-07] MEDS ORDERED: KETOROLAC TROMETHAMINE 15 MG/ML VIAL ONE (05:49)
[2022-03-07] MEDS ORDERED: LACTATED RINGERS SOLUTION 1000 ML INFUS.BAG IV ONE (06:14)
[2022-03-07 07:02] VITALS: BP 167/74; PULSE 64; RESP 18; TEMP 98.4
== END 2022-03-07 07:50 | disposition home or self-care (01) ==
LOC: JER 02:04
PROC: 3E0333Z Introduction of Anti-inflammatory into Peripheral Vein, Percutaneous Approach (ICD-10-PCS; principal; 2022-03-07)
PROC: 3E0333Z Introduction of Anti-inflammatory into Peripheral Vein, Percutaneous Approach (ICD-10-PCS; 2022-03-07)
DX: R10.9 Unspecified abdominal pain (principal); M79.10 Myalgia, unspecified site
CPT/HCPCS: 0241U-QW; 36415; 71045-TC-FY; 74177-TC; 80053; 81003; 83605; 83690; 84484; 85025; 85610; 85730; 86850; 86900; 86901; 87086; 93005; 93010; 96374; 96375; 99285-25; Q9967

== ENCOUNTER 2022-04-04 21:33 | Emergency (ER) | payer OTHER ==
[2022-04-04 22:14] VITALS: BP 136/72; PULSE 94; RESP 20; BMI 35.2
[2022-04-04] MEDS ORDERED: ONDANSETRON 4 MG/2 ML VIAL IVPUSH ONE (22:35)
[2022-04-04] MEDS ORDERED: SODIUM CHLORIDE 500 ML IV STA (22:35)
[2022-04-04] MEDS ORDERED: ONDANSETRON 4 MG/2 ML VIAL ONE (23:22)
[2022-04-04 23:29] LABS: BASO % 0.5 % (0-2.0); HEMATOCRIT 35.3 % (32.4-45.2); HEMOGLOBIN 11.6 GM/dL (10.7-15.3); LYMPH % 16.6 % (8-40); MCH 24.9 pg (25.7-33.7); MCHC 32.9 g/dl (32.0-36.0); MEAN CELL VOLUME 75.6 fl (80-96); MEAN PLT VOLUME 8.1 fl (7.5-11.1); MONO % 9.9 % (3.8-10.2); PLATELET COUNT 255 10^3/uL (134-434); RBC 4.66 M/mm3 (3.60-5.2); RDW 16.8 % (11.6-15.6); WHITE BLOOD COUNT 5.9 K/mm3 (4.0-10.0)
[2022-04-04 23:55] LABS: CALCIUM 8.4 mg/dL (8.5-10.1)
[2022-04-04 23:56] LABS: ALBUMIN 3.2 g/dl (3.4-5.0); BLOOD UREA NITROGEN 13.8 mg/dL (7-18)
[2022-04-04 23:59] LABS: CREATININE 0.6 mg/dL (0.55-1.3)
[2022-04-05] LABS: BILIRUBIN,TOTAL 0.7 mg/dL (0.2-1); TOT PROT 6.6 g/dl (6.4-8.2)
[2022-04-05 00:56] LABS: EPI CELLS 24 /uL (0-25.1); HYALINE CASTS 78 /uL (0-3.1); PH,URINE 5.5 (5.0-8.0); URINE APPEARANCE CLOUDY; URINE BACTERIA 8403 /uL (0-1359); URINE BILIRUBIN 1+ (NEGATIVE); URINE COLOR DK YELLOW; URINE GLUCOSE (UA) NEGATIVE (NEGATIVE); URINE KETONE 1+ (NEGATIVE); URINE LEUK ESTERASE 3+ (NEGATIVE); URINE NITRITE POSITIVE (NEGATIVE); URINE PROTEIN 2+ (NEGATIVE); URINE WBC 705 /uL (0-25.8)
[2022-04-05] MEDS ORDERED: ACETAMINOPHEN 325 MG TABLET (FP) PO ONE (01:44)
[2022-04-05] MEDS ORDERED: ACETAMINOPHEN 325 MG TABLET (FP) ONE (01:47)
[2022-04-05 03:39] LABS: URINE RBC 48.1 /uL (0-23.9)
[2022-04-05] MEDS ORDERED: CEPHALEXIN MONOHYDRATE 500 MG CAPSULE (UD) PO ONE (03:50)
[2022-04-05] MEDS ORDERED: CEPHALEXIN MONOHYDRATE 500 MG CAPSULE (UD) ONE (03:52)
== END 2022-04-05 04:25 | disposition home or self-care (01) ==
LOC: JER 21:33
PROC: 3E033NZ Introduction of Analgesics, Hypnotics, Sedatives into Peripheral Vein, Percutaneous Approach (ICD-10-PCS; principal; 2022-04-04)
PROC: 3E0337Z Introduction of Electrolytic and Water Balance Substance into Peripheral Vein, Percutaneous Approach (ICD-10-PCS; 2022-04-04)
DX: N39.0 Urinary tract infection, site not specified (principal)
CPT/HCPCS: 36415; 74177-TC; 80053; 81003; 83605; 85025; 87086; 87186; 96361; 96374; 99285-25; Q9967

== ENCOUNTER 2023-06-14 19:03 | Inpatient (IN) | payer OTHER ==
[2023-06-14] MEDS ORDERED: ALBUTEROL SO4 2.5/IPRATROPIUM 0.5 INH SOL 3 ML VIAL.NEB. NEB ONE ×3 (19:54→21:17)
[2023-06-14 21:06] LABS: EPI CELLS 6 /uL (0-25.1); HYALINE CASTS 1 /uL (0-3.1); URINE APPEARANCE CLEAR; URINE BACTERIA 18 /uL (0-1359); URINE BILIRUBIN NEGATIVE (NEGATIVE); URINE COLOR YELLOW; URINE GLUCOSE (UA) NEGATIVE (NEGATIVE); URINE KETONE NEGATIVE (NEGATIVE); URINE LEUK ESTERASE TRACE (NEGATIVE); URINE NITRITE NEGATIVE (NEGATIVE); URINE PROTEIN NEGATIVE (NEGATIVE); URINE RBC 34 /uL (0-23.9); URINE WBC 8 /uL (0-25.8)
[2023-06-14] MEDS ORDERED: ACETAMINOPHEN 1000 MG/100 ML BAG IVPB ONE (21:15)
[2023-06-14] MEDS ORDERED: ACETAMINOPHEN INJECTION 100 ML IVPB ONE (21:17)
[2023-06-14 21:18] LABS: BASO % 0.4 % (0-2.0); EOS % 0.2 % (0-4.5); HEMATOCRIT 32.9 % (32.4-45.2); HEMOGLOBIN 10.2 GM/dL (10.7-15.3); LYMPH % 8.6 % (8-40); MCH 21.5 pg (25.7-33.7); MCHC 30.9 g/dl (32.0-36.0); MEAN CELL VOLUME 69.8 fl (80-96); MEAN PLT VOLUME 8.1 fl (7.5-11.1); MONO % 1.3 % (3.8-10.2); NEUT % 89.5 % (42.8-82.8); PLATELET COUNT 440 10^3/uL (134-434); RBC 4.72 M/mm3 (3.60-5.2); RDW 17.6 % (11.6-15.6); WHITE BLOOD COUNT 10.9 K/mm3 (4.0-10.0)
[2023-06-14 21:24] LABS: CALCIUM 8.5 mg/dL (8.5-10.1)
[2023-06-14] MEDS: ALBUTEROL SO4 2.5/IPRATROPIUM 0.5 INH SOL 3 ML VIAL.NEB. NEB SCH ×2 (21:24→21:44)
[2023-06-14 21:25] LABS: ALBUMIN 3.7 g/dl (3.4-5.0); BLOOD UREA NITROGEN 13.4 mg/dL (7-18)
[2023-06-14 21:28] LABS: CREATININE 0.6 mg/dL (0.55-1.3)
[2023-06-14 21:30] LABS: BILIRUBIN,TOTAL 0.6 mg/dL (0.2-1); TOT PROT 7.4 g/dl (6.4-8.2)
[2023-06-14 21:33] LABS: N-TERMINAL BNP 637.6 pg/ml (5-125)
[2023-06-14 21:47] LABS: INR 1.08 (0.83-1.09); PROTHROMBIN TIME (PATIENT) 12.5 SEC (9.7-13.0)
[2023-06-14 21:49] LABS: ACTIVATED PTT 31.3 SECONDS (25.2-36.5)
[2023-06-14] MEDS ORDERED: methylPREDNISolone NA SUCC 125 MG/2 ML VIAL IVPUSH ONE (22:47)
[2023-06-14] MEDS ORDERED: methylPREDNISolone NA SUCC 125 MG/2 ML VIAL ONE (23:01)
[2023-06-14 23:10] LABS: ANISOCYTOSIS 2+; MACROCYTOSIS 0
[2023-06-15] MEDS ORDERED: AZITHROMYCIN IVPB 500 MG/250 ML BAG IVPB ONE ×2 (01:34→02:04)
[2023-06-15] MEDS ORDERED: ALBUTEROL SO4 2.5/IPRATROPIUM 0.5 INH SOL 3 ML VIAL.NEB. NEB PRN (01:36)
[2023-06-15] MEDS: methylPREDNISolone NA SUCC 40 MG/1 ML VIAL IVPUSH SCH ×3 (03:30→17:19)
[2023-06-15] MEDS: metFORMIN HCL 500 MG TABLET (FP) PO SCH ×2 (06:35→17:19)
[2023-06-15] MEDS: VALSARTAN 80 MG TABLET PO SCH (09:12)
[2023-06-15] MEDS: APIXABAN 5 MG TABLET PO SCH ×2 (09:12→21:11)
[2023-06-15] MEDS: POLYETHYLENE GLYCOL (HEALTHYLAX) 3350 17 GM PACKET PO SCH (09:12)
[2023-06-15] MEDS: metoPROLOL SUCCINATE 25 MG TAB.SR.24H (FP) PO SCH (09:12)
[2023-06-15] MEDS: CEFTRIAXONE 1 GM in DEXTROSE 5%-WATER - 50 ML IVPB SCH (09:13)
[2023-06-15 09:31] LABS: BASO % 0.1 % (0-2.0); HEMATOCRIT 31.6 % (32.4-45.2); HEMOGLOBIN 9.7 GM/dL (10.7-15.3); LYMPH % 9.6 % (8-40); MCH 21.5 pg (25.7-33.7); MCHC 30.6 g/dl (32.0-36.0); MEAN CELL VOLUME 70.4 fl (80-96); MEAN PLT VOLUME 8.1 fl (7.5-11.1); MONO % 0.7 % (3.8-10.2); NEUT % 89.6 % (42.8-82.8); PLATELET COUNT 429 10^3/uL (134-434); RBC 4.49 M/mm3 (3.60-5.2); RDW 17.3 % (11.6-15.6); WHITE BLOOD COUNT 8.9 K/mm3 (4.0-10.0)
[2023-06-15 09:50] LABS: CALCIUM 9.1 mg/dL (8.5-10.1)
[2023-06-15 09:51] LABS: BLOOD UREA NITROGEN 10.9 mg/dL (7-18)
[2023-06-15 09:54] LABS: ALBUMIN 3.6 g/dl (3.4-5.0); CREATININE 0.7 mg/dL (0.55-1.3)
[2023-06-15 09:55] LABS: BILIRUBIN,TOTAL 0.6 mg/dL (0.2-1); TOT PROT 7.4 g/dl (6.4-8.2)
[2023-06-15] MEDS: guaiFENesin 200 MG/10 ML 10 ML UNIT-DOSE CUPS PO PRN ×2 (11:13→15:09)
[2023-06-15] MEDS: ACETAMINOPHEN 325 MG TABLET (FP) PO PRN (11:14)
[2023-06-15] MEDS ORDERED: UMECLIDINIUM/VILANTEROL (ANORO) 62.5/25 MCG INHALER IH SCH (13:45)
[2023-06-15] MEDS: ALBUTEROL SO4 2.5/IPRATROPIUM 0.5 INH SOL 3 ML VIAL.NEB. NEB SCH ×2 (14:56→20:30)
[2023-06-15] MEDS: LORATADINE 10 MG TABLET PO SCH (15:09)
[2023-06-15] MEDS: UMECLIDINIUM/VILANTEROL (ANORO) 62.5/25 MCG INHALER IH SCH (15:09)
[2023-06-15] MEDS: INSULIN SLIDING SCALE (NOVOLOG) 1 VIAL SQ SCH ×2 (17:18→22:21)
[2023-06-15] MEDS: DOCUSATE SODIUM 100 MG CAPSULE (FP) PO SCH (21:10)
[2023-06-15] MEDS: ATORVASTATIN CA 10 MG TABLET (FP) PO SCH (21:11)
[2023-06-16] MEDS: methylPREDNISolone NA SUCC 40 MG/1 ML VIAL IVPUSH SCH ×3 (01:24→17:08)
[2023-06-16] MEDS: INSULIN SLIDING SCALE (NOVOLOG) 1 VIAL SQ SCH ×4 (06:37→21:39)
[2023-06-16] MEDS: metFORMIN HCL 500 MG TABLET (FP) PO SCH ×2 (06:38→17:08)
[2023-06-16] MEDS: ALBUTEROL SO4 2.5/IPRATROPIUM 0.5 INH SOL 3 ML VIAL.NEB. NEB SCH ×3 (08:00→20:35)
[2023-06-16] MEDS: APIXABAN 5 MG TABLET PO SCH ×2 (10:27→21:40)
[2023-06-16] MEDS: VALSARTAN 80 MG TABLET PO SCH (10:27)
[2023-06-16] MEDS: CEFTRIAXONE 1 GM in DEXTROSE 5%-WATER - 50 ML IVPB SCH (10:27)
[2023-06-16] MEDS: metoPROLOL SUCCINATE 25 MG TAB.SR.24H (FP) PO SCH (10:27)
[2023-06-16] MEDS: LORATADINE 10 MG TABLET PO SCH (10:27)
[2023-06-16] MEDS: UMECLIDINIUM/VILANTEROL (ANORO) 62.5/25 MCG INHALER IH SCH (10:28)
[2023-06-16] MEDS: POLYETHYLENE GLYCOL (HEALTHYLAX) 3350 17 GM PACKET PO SCH (10:28)
[2023-06-16 11:08] LABS: HEMOGLOBIN 8.9 GM/dL (10.7-15.3); MCH 21.1 pg (25.7-33.7); MCHC 29.7 g/dl (32.0-36.0); MEAN CELL VOLUME 71.2 fl (80-96); MEAN PLT VOLUME 8.4 fl (7.5-11.1); PLATELET COUNT 450 10^3/uL (134-434); RBC 4.21 M/mm3 (3.60-5.2); RDW 18.1 % (11.6-15.6); WHITE BLOOD COUNT 22.2 K/mm3 (4.0-10.0)
[2023-06-16 11:10] LABS: POTASSIUM 3.9 mmol/L (3.5-5.1)
[2023-06-16 11:13] LABS: CALCIUM 8.8 mg/dL (8.5-10.1)
[2023-06-16 11:14] LABS: ALBUMIN 3.4 g/dl (3.4-5.0); BLOOD UREA NITROGEN 29.8 mg/dL (7-18)
[2023-06-16 11:17] LABS: CREATININE 0.9 mg/dL (0.55-1.3)
[2023-06-16 11:18] LABS: TOT PROT 6.8 g/dl (6.4-8.2)
[2023-06-16] MEDS: AZITHROMYCIN IVPB 250 MG in DEXTROSE 5%-WATER - 250 ML IVPB SCH (11:32)
[2023-06-16] MEDS: ARTIFICIAL TEARS (POLYVINYL ALCOHOL) OPTH DROPS OU SCH ×2 (13:07→21:38)
[2023-06-16 15:37] LABS: ANISOCYTOSIS 2+; MACROCYTOSIS 0; OVALOCYTE 2+; TARGET CELLS 1+; TEAR DROP CELLS 2+
[2023-06-16] MEDS: ATORVASTATIN CA 10 MG TABLET (FP) PO SCH (21:40)
[2023-06-16] MEDS: DOCUSATE SODIUM 100 MG CAPSULE (FP) PO SCH (21:40)
[2023-06-17] MEDS: methylPREDNISolone NA SUCC 40 MG/1 ML VIAL IVPUSH SCH ×3 (01:07→17:25)
[2023-06-17] MEDS: guaiFENesin 200 MG/10 ML 10 ML UNIT-DOSE CUPS PO PRN ×2 (01:10→10:21)
[2023-06-17] MEDS: metFORMIN HCL 500 MG TABLET (FP) PO SCH ×2 (06:01→16:50)
[2023-06-17] MEDS: INSULIN SLIDING SCALE (NOVOLOG) 1 VIAL SQ SCH ×4 (06:05→23:31)
[2023-06-17] MEDS: ALBUTEROL SO4 2.5/IPRATROPIUM 0.5 INH SOL 3 ML VIAL.NEB. NEB SCH ×3 (08:43→20:02)
[2023-06-17 09:45] LABS: BLOOD UREA NITROGEN 32.5 mg/dL (7-18)
[2023-06-17 09:46] LABS: ALBUMIN 3.6 g/dl (3.4-5.0); CALCIUM 8.8 mg/dL (8.5-10.1)
[2023-06-17 09:50] LABS: CREATININE 0.8 mg/dL (0.55-1.3)
[2023-06-17 09:52] LABS: BILIRUBIN,TOTAL 0.7 mg/dL (0.2-1); TOT PROT 6.9 g/dl (6.4-8.2)
[2023-06-17] MEDS: APIXABAN 5 MG TABLET PO SCH ×2 (09:55→22:57)
[2023-06-17] MEDS: VALSARTAN 80 MG TABLET PO SCH (09:55)
[2023-06-17] MEDS: CEFTRIAXONE 1 GM in DEXTROSE 5%-WATER - 50 ML IVPB SCH (09:55)
[2023-06-17] MEDS: POLYETHYLENE GLYCOL (HEALTHYLAX) 3350 17 GM PACKET PO SCH (09:55)
[2023-06-17] MEDS: LORATADINE 10 MG TABLET PO SCH (09:55)
[2023-06-17] MEDS: metoPROLOL SUCCINATE 25 MG TAB.SR.24H (FP) PO SCH (09:55)
[2023-06-17] MEDS: UMECLIDINIUM/VILANTEROL (ANORO) 62.5/25 MCG INHALER IH SCH (09:56)
[2023-06-17] MEDS: ARTIFICIAL TEARS (POLYVINYL ALCOHOL) OPTH DROPS OU SCH ×2 (09:56→22:56)
[2023-06-17 10:15] LABS: HEMATOCRIT 31.5 % (32.4-45.2); HEMOGLOBIN 9.5 GM/dL (10.7-15.3); MEAN CELL VOLUME 70.1 fl (80-96); PLATELET COUNT 484 10^3/uL (134-434); WHITE BLOOD COUNT 22.1 K/mm3 (4.0-10.0)
[2023-06-17 11:07] LABS: ANISOCYTOSIS 2+; MACROCYTOSIS 1+
[2023-06-17] MEDS: AZITHROMYCIN IVPB 250 MG in DEXTROSE 5%-WATER - 250 ML IVPB SCH (12:00)
[2023-06-17] MEDS: DOCUSATE SODIUM 100 MG CAPSULE (FP) PO SCH (22:56)
[2023-06-17] MEDS: guaiFENesin/CODEINE 10 ML UNIT-DOSE CUPS PO PRN (22:56)
[2023-06-17] MEDS: MELATONIN 5 MG TABLETS PO SCH (22:57)
[2023-06-17] MEDS: ATORVASTATIN CA 10 MG TABLET (FP) PO SCH (22:57)
[2023-06-18] MEDS: methylPREDNISolone NA SUCC 40 MG/1 ML VIAL IVPUSH SCH ×3 (01:58→21:34)
[2023-06-18] MEDS: INSULIN SLIDING SCALE (NOVOLOG) 1 VIAL SQ SCH ×4 (06:03→21:33)
[2023-06-18] MEDS: metFORMIN HCL 500 MG TABLET (FP) PO SCH ×2 (06:03→17:24)
[2023-06-18] MEDS: ALBUTEROL SO4 2.5/IPRATROPIUM 0.5 INH SOL 3 ML VIAL.NEB. NEB SCH ×3 (07:22→20:10)
[2023-06-18] MEDS: POLYETHYLENE GLYCOL (HEALTHYLAX) 3350 17 GM PACKET PO SCH (09:24)
[2023-06-18] MEDS: metoPROLOL SUCCINATE 25 MG TAB.SR.24H (FP) PO SCH (09:24)
[2023-06-18] MEDS: CEFTRIAXONE 1 GM in DEXTROSE 5%-WATER - 50 ML IVPB SCH (09:24)
[2023-06-18] MEDS: VALSARTAN 80 MG TABLET PO SCH (09:24)
[2023-06-18] MEDS: LORATADINE 10 MG TABLET PO SCH (09:25)
[2023-06-18] MEDS: ARTIFICIAL TEARS (POLYVINYL ALCOHOL) OPTH DROPS OU SCH ×2 (09:25→21:30)
[2023-06-18] MEDS: APIXABAN 5 MG TABLET PO SCH ×2 (09:25→21:29)
[2023-06-18] MEDS: UMECLIDINIUM/VILANTEROL (ANORO) 62.5/25 MCG INHALER IH SCH (09:26)
[2023-06-18] MEDS: AZITHROMYCIN IVPB 250 MG in DEXTROSE 5%-WATER - 250 ML IVPB SCH (10:09)
[2023-06-18 10:35] LABS: HEMATOCRIT 30.8 % (32.4-45.2); HEMOGLOBIN 9.3 GM/dL (10.7-15.3); MCH 21.3 pg (25.7-33.7); MCHC 30.4 g/dl (32.0-36.0); MEAN CELL VOLUME 70.1 fl (80-96); MEAN PLT VOLUME 8.1 fl (7.5-11.1); PLATELET COUNT 434 10^3/uL (134-434); RBC 4.39 M/mm3 (3.60-5.2); RDW 17.7 % (11.6-15.6); WHITE BLOOD COUNT 16.4 K/mm3 (4.0-10.0)
[2023-06-18 11:12] LABS: POTASSIUM 4.1 mmol/L (3.5-5.1)
[2023-06-18 11:16] LABS: ALBUMIN 3.3 g/dl (3.4-5.0); ANISOCYTOSIS 1+; CALCIUM 9.1 mg/dL (8.5-10.1); MACROCYTOSIS 0
[2023-06-18 11:19] LABS: CREATININE 0.8 mg/dL (0.55-1.3)
[2023-06-18 11:20] LABS: TOT PROT 6.4 g/dl (6.4-8.2)
[2023-06-18 11:25] LABS: BILIRUBIN,TOTAL 0.8 mg/dL (0.2-1)
[2023-06-18] MEDS: DOCUSATE SODIUM 100 MG CAPSULE (FP) PO SCH (21:29)
[2023-06-18] MEDS: ATORVASTATIN CA 10 MG TABLET (FP) PO SCH (21:29)
[2023-06-18] MEDS: MELATONIN 5 MG TABLETS PO SCH (21:29)
[2023-06-18] MEDS: guaiFENesin/CODEINE 10 ML UNIT-DOSE CUPS PO PRN (22:25)
[2023-06-19] MEDS: INSULIN SLIDING SCALE (NOVOLOG) 1 VIAL SQ SCH ×4 (06:06→21:39)
[2023-06-19] MEDS: metFORMIN HCL 500 MG TABLET (FP) PO SCH ×2 (06:06→17:41)
[2023-06-19] MEDS: ALBUTEROL SO4 2.5/IPRATROPIUM 0.5 INH SOL 3 ML VIAL.NEB. NEB SCH ×3 (07:40→20:35)
[2023-06-19 09:28] LABS: BASO % 0.1 % (0-2.0); HEMOGLOBIN 9.5 GM/dL (10.7-15.3); LYMPH % 6.8 % (8-40); MCH 21.6 pg (25.7-33.7); MCHC 30.6 g/dl (32.0-36.0); MEAN CELL VOLUME 70.6 fl (80-96); MEAN PLT VOLUME 8.1 fl (7.5-11.1); MONO % 2.4 % (3.8-10.2); NEUT % 90.7 % (42.8-82.8); PLATELET COUNT 451 10^3/uL (134-434); RBC 4.39 M/mm3 (3.60-5.2); RDW 17.5 % (11.6-15.6); WHITE BLOOD COUNT 14.3 K/mm3 (4.0-10.0)
[2023-06-19 09:37] LABS: POTASSIUM 4.1 mmol/L (3.5-5.1)
[2023-06-19 09:38] LABS: CALCIUM 8.4 mg/dL (8.5-10.1)
[2023-06-19 09:40] LABS: ALBUMIN 3.1 g/dl (3.4-5.0); BLOOD UREA NITROGEN 24.3 mg/dL (7-18)
[2023-06-19 09:43] LABS: CREATININE 0.7 mg/dL (0.55-1.3)
[2023-06-19 09:45] LABS: BILIRUBIN,TOTAL 0.6 mg/dL (0.2-1); TOT PROT 6.2 g/dl (6.4-8.2)
[2023-06-19] MEDS: POLYETHYLENE GLYCOL (HEALTHYLAX) 3350 17 GM PACKET PO SCH (10:56)
[2023-06-19] MEDS: CEFTRIAXONE 1 GM in DEXTROSE 5%-WATER - 50 ML IVPB SCH (10:56)
[2023-06-19] MEDS: methylPREDNISolone NA SUCC 40 MG/1 ML VIAL IVPUSH SCH ×2 (10:57→21:38)
[2023-06-19] MEDS: metoPROLOL SUCCINATE 25 MG TAB.SR.24H (FP) PO SCH (10:57)
[2023-06-19] MEDS: APIXABAN 5 MG TABLET PO SCH ×2 (10:57→21:38)
[2023-06-19] MEDS: LORATADINE 10 MG TABLET PO SCH (10:57)
[2023-06-19] MEDS: VALSARTAN 80 MG TABLET PO SCH (10:59)
[2023-06-19] MEDS: FLUTICASONE/UMECLIDIN/VILANTER(200-62.5-25 TRELEGY ELLIPTA) INAHLER IH SCH (10:59)
[2023-06-19] MEDS: AZITHROMYCIN IVPB 250 MG in DEXTROSE 5%-WATER - 250 ML IVPB SCH (11:01)
[2023-06-19] MEDS: ARTIFICIAL TEARS (POLYVINYL ALCOHOL) OPTH DROPS OU SCH ×2 (11:02→22:27)
[2023-06-19] MEDS: DOCUSATE SODIUM 100 MG CAPSULE (FP) PO SCH (21:37)
[2023-06-19] MEDS: guaiFENesin/CODEINE 10 ML UNIT-DOSE CUPS PO PRN (21:38)
[2023-06-19] MEDS: MELATONIN 5 MG TABLETS PO SCH (21:38)
[2023-06-19] MEDS: ATORVASTATIN CA 10 MG TABLET (FP) PO SCH (21:38)
[2023-06-20] MEDS: INSULIN SLIDING SCALE (NOVOLOG) 1 VIAL SQ SCH ×4 (06:06→23:20)
[2023-06-20] MEDS: metFORMIN HCL 500 MG TABLET (FP) PO SCH ×2 (06:06→17:09)
[2023-06-20 08:14] LABS: HEMATOCRIT 32.2 % (32.4-45.2); HEMOGLOBIN 9.9 GM/dL (10.7-15.3); MCH 21.8 pg (25.7-33.7); MCHC 30.7 g/dl (32.0-36.0); MEAN PLT VOLUME 8.1 fl (7.5-11.1); PLATELET COUNT 487 10^3/uL (134-434); RBC 4.53 M/mm3 (3.60-5.2); RDW 17.6 % (11.6-15.6); WHITE BLOOD COUNT 16.5 K/mm3 (4.0-10.0)
[2023-06-20] MEDS: ALBUTEROL SO4 2.5/IPRATROPIUM 0.5 INH SOL 3 ML VIAL.NEB. NEB SCH (08:20)
[2023-06-20 08:32] LABS: CALCIUM 8.2 mg/dL (8.5-10.1)
[2023-06-20 08:33] LABS: ALBUMIN 3.1 g/dl (3.4-5.0); BLOOD UREA NITROGEN 27.5 mg/dL (7-18)
[2023-06-20 08:35] LABS: CREATININE 0.8 mg/dL (0.55-1.3)
[2023-06-20 08:37] LABS: BILIRUBIN,TOTAL 0.8 mg/dL (0.2-1)
[2023-06-20 08:38] LABS: TOT PROT 6.2 g/dl (6.4-8.2)
[2023-06-20 09:52] LABS: ANISOCYTOSIS 1+; MACROCYTOSIS 0
[2023-06-20] MEDS: metoPROLOL SUCCINATE 25 MG TAB.SR.24H (FP) PO SCH (10:49)
[2023-06-20] MEDS: methylPREDNISolone NA SUCC 40 MG/1 ML VIAL IVPUSH SCH ×2 (10:49→22:49)
[2023-06-20] MEDS: APIXABAN 5 MG TABLET PO SCH ×2 (10:50→22:35)
[2023-06-20] MEDS: POLYETHYLENE GLYCOL (HEALTHYLAX) 3350 17 GM PACKET PO SCH (10:50)
[2023-06-20] MEDS: LORATADINE 10 MG TABLET PO SCH (10:50)
[2023-06-20] MEDS: ACETAMINOPHEN 325 MG TABLET (FP) PO PRN ×2 (10:51→22:35)
[2023-06-20] MEDS: VALSARTAN 80 MG TABLET PO SCH (10:52)
[2023-06-20] MEDS: FLUTICASONE/UMECLIDIN/VILANTER(200-62.5-25 TRELEGY ELLIPTA) INAHLER IH SCH (10:53)
[2023-06-20] MEDS: ARTIFICIAL TEARS (POLYVINYL ALCOHOL) OPTH DROPS OU SCH ×2 (10:53→22:54)
[2023-06-20] MEDS: DOCUSATE SODIUM 100 MG CAPSULE (FP) PO SCH (22:34)
[2023-06-20] MEDS: ATORVASTATIN CA 10 MG TABLET (FP) PO SCH (22:35)
[2023-06-20] MEDS: MELATONIN 5 MG TABLETS PO SCH (22:35)
[2023-06-20] MEDS ORDERED: LISINOPRIL 5 MG TABLET PO SCH (23:02)
[2023-06-21] MEDS: INSULIN SLIDING SCALE (NOVOLOG) 1 VIAL SQ SCH ×4 (06:20→22:32)
[2023-06-21] MEDS: metFORMIN HCL 500 MG TABLET (FP) PO SCH ×2 (06:20→17:09)
[2023-06-21] MEDS ORDERED: guaiFENesin 200 MG/10 ML 10 ML UNIT-DOSE CUPS PO ONE (07:03)
[2023-06-21] MEDS ORDERED: ALBUTEROL SO4 2.5/IPRATROPIUM 0.5 INH SOL 3 ML VIAL.NEB. NEB ONE (07:03)
[2023-06-21] MEDS: metoPROLOL SUCCINATE 25 MG TAB.SR.24H (FP) PO SCH (09:29)
[2023-06-21] MEDS: APIXABAN 5 MG TABLET PO SCH ×2 (09:29→22:32)
[2023-06-21] MEDS: methylPREDNISolone NA SUCC 40 MG/1 ML VIAL IVPUSH SCH (09:29)
[2023-06-21] MEDS: POLYETHYLENE GLYCOL (HEALTHYLAX) 3350 17 GM PACKET PO SCH (09:30)
[2023-06-21] MEDS: VALSARTAN 80 MG TABLET PO SCH (09:30)
[2023-06-21] MEDS: LORATADINE 10 MG TABLET PO SCH (09:30)
[2023-06-21] MEDS: ARTIFICIAL TEARS (POLYVINYL ALCOHOL) OPTH DROPS OU SCH ×2 (09:31→22:32)
[2023-06-21] MEDS: FLUTICASONE/UMECLIDIN/VILANTER(200-62.5-25 TRELEGY ELLIPTA) INAHLER IH SCH (09:31)
[2023-06-21] MEDS: ACETAMINOPHEN 325 MG TABLET (FP) PO PRN ×2 (12:37→22:33)
[2023-06-21 18:36] VITALS: RESP 18
[2023-06-21] MEDS: DOCUSATE SODIUM 100 MG CAPSULE (FP) PO SCH (22:32)
[2023-06-21] MEDS: MELATONIN 5 MG TABLETS PO SCH (22:32)
[2023-06-21] MEDS: ATORVASTATIN CA 10 MG TABLET (FP) PO SCH (22:32)
[2023-06-22] MEDS: metFORMIN HCL 500 MG TABLET (FP) PO SCH ×2 (06:04→17:08)
[2023-06-22] MEDS: INSULIN SLIDING SCALE (NOVOLOG) 1 VIAL SQ SCH ×4 (06:35→21:47)
[2023-06-22] MEDS ORDERED: ALBUTEROL SO4 2.5/IPRATROPIUM 0.5 INH SOL 3 ML VIAL.NEB. NEB ONE (06:35)
[2023-06-22] MEDS ORDERED: guaiFENesin/D-M SUGAR-FREE/ACLHOL-FREE (200 MG/10 MG) 5 ML PO PRN (06:36)
[2023-06-22] MEDS: guaiFENesin/D-M SUGAR-FREE/ACLHOL-FREE 5 ML UNIT DOSE PO PRN ×2 (09:18→21:35)
[2023-06-22] MEDS: VALSARTAN 80 MG TABLET PO SCH (09:19)
[2023-06-22] MEDS: LORATADINE 10 MG TABLET PO SCH (09:19)
[2023-06-22] MEDS: POLYETHYLENE GLYCOL (HEALTHYLAX) 3350 17 GM PACKET PO SCH (09:19)
[2023-06-22] MEDS: metoPROLOL SUCCINATE 25 MG TAB.SR.24H (FP) PO SCH (09:19)
[2023-06-22] MEDS: predniSONE 20 MG TABLET (UD) PO SCH (09:19)
[2023-06-22] MEDS: APIXABAN 5 MG TABLET PO SCH ×2 (09:19→21:34)
[2023-06-22] MEDS: FLUTICASONE/UMECLIDIN/VILANTER(200-62.5-25 TRELEGY ELLIPTA) INAHLER IH SCH (09:20)
[2023-06-22] MEDS: ARTIFICIAL TEARS (POLYVINYL ALCOHOL) OPTH DROPS OU SCH ×2 (09:20→21:36)
[2023-06-22 13:51] VITALS: BMI 38.2
[2023-06-22] MEDS: ALBUTEROL SO4 2.5/IPRATROPIUM 0.5 INH SOL 3 ML VIAL.NEB. NEB PRN ×2 (15:45→21:21)
[2023-06-22] MEDS ORDERED: SODIUM PHOSPHATE/NA BIPHOS 133 ML ENEMA RC ONE (17:46)
[2023-06-22] MEDS: DOCUSATE SODIUM 100 MG CAPSULE (FP) PO SCH (21:34)
[2023-06-22] MEDS: MELATONIN 5 MG TABLETS PO SCH (21:34)
[2023-06-22] MEDS: ATORVASTATIN CA 10 MG TABLET (FP) PO SCH (21:34)
[2023-06-22] MEDS: ACETAMINOPHEN 325 MG TABLET (FP) PO PRN (21:42)
[2023-06-22] MEDS ORDERED: MAG HYDROX/AL HYDROX/SIMETH 30 ML UNIT-DOSE CUP PO PRN (22:18)
[2023-06-23] MEDS: metFORMIN HCL 500 MG TABLET (FP) PO SCH (06:18)
[2023-06-23] MEDS: INSULIN SLIDING SCALE (NOVOLOG) 1 VIAL SQ SCH ×2 (06:19→12:22)
[2023-06-23] MEDS: VALSARTAN 80 MG TABLET PO SCH (09:58)
[2023-06-23] MEDS: APIXABAN 5 MG TABLET PO SCH (09:58)
[2023-06-23] MEDS: metoPROLOL SUCCINATE 25 MG TAB.SR.24H (FP) PO SCH (09:58)
[2023-06-23] MEDS: predniSONE 20 MG TABLET (UD) PO SCH (09:58)
[2023-06-23] MEDS: POLYETHYLENE GLYCOL (HEALTHYLAX) 3350 17 GM PACKET PO SCH (09:58)
[2023-06-23] MEDS: LORATADINE 10 MG TABLET PO SCH (09:58)
[2023-06-23] MEDS: FLUTICASONE/UMECLIDIN/VILANTER(200-62.5-25 TRELEGY ELLIPTA) INAHLER IH SCH (10:25)
[2023-06-23] MEDS: ARTIFICIAL TEARS (POLYVINYL ALCOHOL) OPTH DROPS OU SCH (10:25)
[2023-06-23 15:23] VITALS: BP 113/57; PULSE 89; TEMP 98.5
[2023-06-23] MEDS ORDERED: ALBUTEROL SO4 2.5/IPRATROPIUM 0.5 INH SOL 3 ML VIAL.NEB. NEB SCH (16:00)
== END 2023-06-23 17:10 | disposition home or self-care (01) | DRG 192 ==
LOC: JER 19:03 → JERBED 06-15 00:51 → J5S 06-15 02:42
PROVIDERS: ADMIT Internal Medicine; ATTEND Internal Medicine
DX: J44.1 Chronic obstructive pulmonary disease with (acute) exacerbation (principal); I10 Essential (primary) hypertension; E78.5 Hyperlipidemia, unspecified; E11.9 Type 2 diabetes mellitus without complications; E66.9 Obesity, unspecified; Z68.38 Body mass index [BMI] 38.0-38.9, adult; R51.9 Headache, unspecified; F03.90 Unspecified dementia, unspecified severity, without behavioral disturbance, psychotic disturbance, mood disturbance, and anxiety; K59.00 Constipation, unspecified
CPT/HCPCS: 0241U-QW; 36415; 71045-TC-FY; 74019-TC-FY; 80053; 80061; 81003; 82962; 83036; 83880; 84443; 84484; 85025; 85610; 85730; 87086; 93005; 93010; 93306-TC; 94640; 97116-GP; 97161-GP; 99285-25

== ENCOUNTER 2023-07-25 13:13 | Inpatient (IN) | payer OTHER ==
[2023-07-25 13:27] VITALS: BMI 36.8
[2023-07-25] MEDS ORDERED: SODIUM CHLORIDE 0.9% 500 ML INFUS.BAG IV ONE (13:53)
[2023-07-25] MEDS ORDERED: dilTIAZem HCL 50 MG/10 ML - 10 ML VIAL IVPUSH ONE (14:04)
[2023-07-25] MEDS ORDERED: dilTIAZem HCL 125 MG/25 ML - 25 ML VIAL ONE (14:08)
[2023-07-25 14:48] LABS: BASO % 0.4 % (0-2.0); HEMATOCRIT 26.9 % (32.4-45.2); HEMOGLOBIN 8.1 GM/dL (10.7-15.3); LYMPH % 21.7 % (8-40); MCH 21.5 pg (25.7-33.7); MEAN CELL VOLUME 71.6 fl (80-96); MONO % 5.1 % (3.8-10.2); NEUT % 72.8 % (42.8-82.8); PLATELET COUNT 389 10^3/uL (134-434); RBC 3.76 M/mm3 (3.60-5.2); RDW 18.9 % (11.6-15.6); WHITE BLOOD COUNT 5.8 K/mm3 (4.0-10.0)
[2023-07-25 14:51] LABS: VENOUS BASE EXCESS -0.5 mmol/L (-2-2); VENOUS O2 SATURATION 57.1 % (70-80); VENOUS PCO2 39.8 mmHg (38-52); VENOUS PH 7.401 (7.310-7.410)
[2023-07-25 15:00] LABS: INR 1.57 (0.83-1.09); PROTHROMBIN TIME (PATIENT) 18.1 SEC (9.7-13.0)
[2023-07-25 15:02] LABS: ACTIVATED PTT 34.6 SECONDS (25.2-36.5)
[2023-07-25] MEDS ORDERED: dilTIAZem HCL 60 MG TABLET PO ONE (15:03)
[2023-07-25 15:12] LABS: POTASSIUM 3.7 mmol/L (3.5-5.1)
[2023-07-25 15:14] LABS: CALCIUM 7.9 mg/dL (8.5-10.1)
[2023-07-25 15:15] LABS: ALBUMIN 3.2 g/dl (3.4-5.0); ANISOCYTOSIS 3+; BLOOD UREA NITROGEN 17.3 mg/dL (7-18); MACROCYTOSIS 0
[2023-07-25 15:18] LABS: CREATININE 0.7 mg/dL (0.55-1.3)
[2023-07-25 15:19] LABS: BILIRUBIN,TOTAL 0.8 mg/dL (0.2-1); TOT PROT 6.5 g/dl (6.4-8.2)
[2023-07-25 15:22] LABS: N-TERMINAL BNP 1540.4 pg/ml (5-125)
[2023-07-25] MEDS ORDERED: dilTIAZem HCL 60 MG TABLET ONE (15:29)
[2023-07-25 17:21] LABS: PH,URINE 6.5 (5.0-8.0); URINE APPEARANCE CLEAR; URINE BILIRUBIN NEGATIVE (NEGATIVE); URINE COLOR YELLOW; URINE GLUCOSE (UA) NEGATIVE (NEGATIVE); URINE KETONE NEGATIVE (NEGATIVE); URINE LEUK ESTERASE NEGATIVE (NEGATIVE); URINE NITRITE NEGATIVE (NEGATIVE); URINE PROTEIN NEGATIVE (NEGATIVE)
[2023-07-25] MEDS ORDERED: ACETAMINOPHEN 325 MG TABLET (FP) PO ONE (23:20)
[2023-07-25] MEDS: ATORVASTATIN CA 10 MG TABLET (FP) PO SCH (23:38)
[2023-07-25] MEDS: APIXABAN 5 MG TABLET PO SCH (23:38)
[2023-07-26] MEDS: guaiFENesin 200 MG/10 ML 10 ML UNIT-DOSE CUPS PO PRN ×2 (00:11→23:47)
[2023-07-26] MEDS: metFORMIN HCL 500 MG TABLET (FP) PO SCH ×2 (06:11→15:41)
[2023-07-26 07:55] LABS: BASO % 0.3 % (0-2.0); EOS % 0.4 % (0-4.5); HEMATOCRIT 25.2 % (32.4-45.2); HEMOGLOBIN 7.6 GM/dL (10.7-15.3); LYMPH % 31.8 % (8-40); MCH 21.6 pg (25.7-33.7); MCHC 30.2 g/dl (32.0-36.0); MEAN CELL VOLUME 71.5 fl (80-96); MEAN PLT VOLUME 8.1 fl (7.5-11.1); MONO % 7.3 % (3.8-10.2); NEUT % 60.2 % (42.8-82.8); PLATELET COUNT 326 10^3/uL (134-434); RBC 3.53 M/mm3 (3.60-5.2); RDW 18.2 % (11.6-15.6); WHITE BLOOD COUNT 5.6 K/mm3 (4.0-10.0)
[2023-07-26 08:10] LABS: POTASSIUM 3.3 mmol/L (3.5-5.1)
[2023-07-26 08:17] LABS: ALBUMIN 3.2 g/dl (3.4-5.0); BLOOD UREA NITROGEN 17.8 mg/dL (7-18); CALCIUM 8.2 mg/dL (8.5-10.1)
[2023-07-26 08:20] LABS: CREATININE 0.5 mg/dL (0.55-1.3)
[2023-07-26 08:22] LABS: BILIRUBIN,TOTAL 0.8 mg/dL (0.2-1); TOT PROT 6.1 g/dl (6.4-8.2)
[2023-07-26] MEDS: APIXABAN 5 MG TABLET PO SCH ×2 (09:24→21:17)
[2023-07-26] MEDS: metoPROLOL SUCCINATE 25 MG TAB.SR.24H (FP) PO SCH (09:24)
[2023-07-26] MEDS ORDERED: DEXAMETHASONE SOD PHOSPHATE 10 MG/1 ML VIAL IVPUSH SCH (11:45)
[2023-07-26] MEDS ORDERED: REMDESIVIR 200 MG in SODIUM CHLORIDE 250 ML IVPB ONE (12:00)
[2023-07-26] MEDS ORDERED: POTASSIUM CHLORIDE ORAL LIQUID 20 MEQ/15 ML PO ONE (15:29)
[2023-07-26] MEDS: ALBUTEROL SO4 HFA INHALER IH SCH ×2 (15:40→20:17)
[2023-07-26] MEDS: INSULIN ASPART SLIDING SCALE (NOVOLOG) 1 VIAL SQ SCH ×2 (17:10→21:22)
[2023-07-26] MEDS: DEXAMETHASONE SOD PHOSPHATE 10 MG/1 ML VIAL IVPUSH SCH (17:12)
[2023-07-26] MEDS ORDERED: ACETAMINOPHEN 325 MG TABLET (FP) PO ONE (20:45)
[2023-07-26] MEDS: ATORVASTATIN CA 10 MG TABLET (FP) PO SCH (21:17)
[2023-07-26] MEDS: BUDESONIDE/FORMETEROL FUMARATE 160/4.5 mcg INHALER IH SCH (21:22)
[2023-07-26] MEDS ORDERED: ACETAMINOPHEN 325 MG TABLET (FP) PO PRN (23:30)
[2023-07-27] MEDS: DEXAMETHASONE SOD PHOSPHATE 10 MG/1 ML VIAL IVPUSH SCH ×2 (01:12→09:59)
[2023-07-27] MEDS: metFORMIN HCL 500 MG TABLET (FP) PO SCH ×2 (06:34→16:03)
[2023-07-27] MEDS: INSULIN ASPART SLIDING SCALE (NOVOLOG) 1 VIAL SQ SCH ×4 (06:34→21:17)
[2023-07-27 07:23] LABS: BASO % 0.1 % (0-2.0); HEMATOCRIT 26.8 % (32.4-45.2); HEMOGLOBIN 8.1 GM/dL (10.7-15.3); LYMPH % 17.8 % (8-40); MCH 21.5 pg (25.7-33.7); MCHC 30.3 g/dl (32.0-36.0); MONO % 1.5 % (3.8-10.2); NEUT % 80.6 % (42.8-82.8); PLATELET COUNT 407 10^3/uL (134-434); RBC 3.78 M/mm3 (3.60-5.2); RDW 18.8 % (11.6-15.6); WHITE BLOOD COUNT 7.5 K/mm3 (4.0-10.0)
[2023-07-27 07:40] LABS: POTASSIUM 4.1 mmol/L (3.5-5.1)
[2023-07-27 07:42] LABS: BLOOD UREA NITROGEN 18.6 mg/dL (7-18); CALCIUM 8.2 mg/dL (8.5-10.1)
[2023-07-27 07:43] LABS: ALBUMIN 3.2 g/dl (3.4-5.0)
[2023-07-27 07:46] LABS: CREATININE 0.6 mg/dL (0.55-1.3)
[2023-07-27 07:47] LABS: BILIRUBIN,TOTAL 0.8 mg/dL (0.2-1); TOT PROT 6.7 g/dl (6.4-8.2)
[2023-07-27] MEDS: ALBUTEROL SO4 HFA INHALER IH SCH ×4 (09:58→20:11)
[2023-07-27] MEDS: metoPROLOL SUCCINATE 25 MG TAB.SR.24H (FP) PO SCH (09:59)
[2023-07-27] MEDS: BUDESONIDE/FORMETEROL FUMARATE 160/4.5 mcg INHALER IH SCH ×2 (09:59→21:12)
[2023-07-27] MEDS: APIXABAN 5 MG TABLET PO SCH ×2 (09:59→21:11)
[2023-07-27] MEDS: REMDESIVIR 100 MG in SODIUM CHLORIDE 250 ML IVPB SCH (11:19)
[2023-07-27] MEDS: guaiFENesin 200 MG/10 ML 10 ML UNIT-DOSE CUPS PO PRN ×2 (17:37→22:46)
[2023-07-27] MEDS: ATORVASTATIN CA 10 MG TABLET (FP) PO SCH (21:11)
[2023-07-28] MEDS: metFORMIN HCL 500 MG TABLET (FP) PO SCH ×2 (06:19→17:50)
[2023-07-28] MEDS: INSULIN ASPART SLIDING SCALE (NOVOLOG) 1 VIAL SQ SCH ×4 (06:20→21:30)
[2023-07-28] MEDS: guaiFENesin 200 MG/10 ML 10 ML UNIT-DOSE CUPS PO PRN (08:26)
[2023-07-28] MEDS: ALBUTEROL SO4 HFA INHALER IH SCH ×4 (08:27→20:26)
[2023-07-28] MEDS: metoPROLOL SUCCINATE 25 MG TAB.SR.24H (FP) PO SCH (10:08)
[2023-07-28] MEDS: DEXAMETHASONE SOD PHOSPHATE 10 MG/1 ML VIAL IVPUSH SCH (10:08)
[2023-07-28] MEDS: APIXABAN 5 MG TABLET PO SCH ×2 (10:09→21:26)
[2023-07-28] MEDS: BUDESONIDE/FORMETEROL FUMARATE 160/4.5 mcg INHALER IH SCH ×2 (10:09→21:29)
[2023-07-28] MEDS: REMDESIVIR 100 MG in SODIUM CHLORIDE 250 ML IVPB SCH (11:40)
[2023-07-28] MEDS: traMADol HCL 50 MG TABLET PO PRN (14:34)
[2023-07-28] MEDS: PANTOPRAZOLE 40 MG TABLET PO SCH (14:35)
[2023-07-28] MEDS: ATORVASTATIN CA 10 MG TABLET (FP) PO SCH (21:26)
[2023-07-29] MEDS: guaiFENesin 200 MG/10 ML 10 ML UNIT-DOSE CUPS PO PRN ×3 (02:04→21:14)
[2023-07-29] MEDS: metFORMIN HCL 500 MG TABLET (FP) PO SCH ×2 (06:31→16:43)
[2023-07-29] MEDS: INSULIN ASPART SLIDING SCALE (NOVOLOG) 1 VIAL SQ SCH ×4 (06:31→21:14)
[2023-07-29 06:57] LABS: BASO % 0.1 % (0-2.0); HEMATOCRIT 27.1 % (32.4-45.2); HEMOGLOBIN 8.2 GM/dL (10.7-15.3); LYMPH % 10.1 % (8-40); MCH 21.5 pg (25.7-33.7); MCHC 30.1 g/dl (32.0-36.0); MEAN CELL VOLUME 71.3 fl (80-96); MEAN PLT VOLUME 8.3 fl (7.5-11.1); MONO % 3.7 % (3.8-10.2); NEUT % 86.1 % (42.8-82.8); PLATELET COUNT 520 10^3/uL (134-434); RDW 19.2 % (11.6-15.6); WHITE BLOOD COUNT 19.1 K/mm3 (4.0-10.0)
[2023-07-29 07:16] LABS: POTASSIUM 4.5 mmol/L (3.5-5.1)
[2023-07-29 07:17] LABS: CALCIUM 8.9 mg/dL (8.5-10.1)
[2023-07-29 07:18] LABS: ALBUMIN 3.3 g/dl (3.4-5.0); BLOOD UREA NITROGEN 40.8 mg/dL (7-18)
[2023-07-29 07:22] LABS: CREATININE 0.8 mg/dL (0.55-1.3)
[2023-07-29 07:23] LABS: BILIRUBIN,TOTAL 0.8 mg/dL (0.2-1); TOT PROT 6.4 g/dl (6.4-8.2)
[2023-07-29 09:02] LABS: ANISOCYTOSIS 3+; MACROCYTOSIS 0
[2023-07-29] MEDS: ALBUTEROL SO4 HFA INHALER IH SCH ×4 (10:05→20:01)
[2023-07-29] MEDS: DEXAMETHASONE SOD PHOSPHATE 10 MG/1 ML VIAL IVPUSH SCH (10:05)
[2023-07-29] MEDS: PANTOPRAZOLE 40 MG TABLET PO SCH (10:06)
[2023-07-29] MEDS: metoPROLOL SUCCINATE 25 MG TAB.SR.24H (FP) PO SCH (10:06)
[2023-07-29] MEDS: BUDESONIDE/FORMETEROL FUMARATE 160/4.5 mcg INHALER IH SCH ×2 (10:06→21:14)
[2023-07-29] MEDS: APIXABAN 5 MG TABLET PO SCH ×2 (10:06→21:14)
[2023-07-29] MEDS: REMDESIVIR 100 MG in SODIUM CHLORIDE 250 ML IVPB SCH (12:24)
[2023-07-29] MEDS ORDERED: PNEUMOC 20-VAL CONJ-DIP CRM/PF 0.5 ML SYRINGE IM ONE (16:00)
[2023-07-29] MEDS: ATORVASTATIN CA 10 MG TABLET (FP) PO SCH (21:13)
[2023-07-30] MEDS: metFORMIN HCL 500 MG TABLET (FP) PO SCH ×2 (06:52→16:32)
[2023-07-30] MEDS: INSULIN ASPART SLIDING SCALE (NOVOLOG) 1 VIAL SQ SCH ×4 (06:52→22:53)
[2023-07-30 07:23] LABS: BASO % 0.1 % (0-2.0); HEMATOCRIT 26.1 % (32.4-45.2); HEMOGLOBIN 8.1 GM/dL (10.7-15.3); LYMPH % 10.9 % (8-40); MCH 22.1 pg (25.7-33.7); MCHC 30.8 g/dl (32.0-36.0); MEAN CELL VOLUME 71.8 fl (80-96); MEAN PLT VOLUME 8.2 fl (7.5-11.1); MONO % 4.6 % (3.8-10.2); NEUT % 84.4 % (42.8-82.8); PLATELET COUNT 418 10^3/uL (134-434); RBC 3.64 M/mm3 (3.60-5.2); RDW 18.8 % (11.6-15.6); WHITE BLOOD COUNT 10.9 K/mm3 (4.0-10.0)
[2023-07-30 07:37] LABS: POTASSIUM 4.5 mmol/L (3.5-5.1)
[2023-07-30 07:44] LABS: CALCIUM 8.5 mg/dL (8.5-10.1)
[2023-07-30 07:45] LABS: ALBUMIN 3.2 g/dl (3.4-5.0)
[2023-07-30 07:47] LABS: BILIRUBIN,TOTAL 0.9 mg/dL (0.2-1); TOT PROT 6.1 g/dl (6.4-8.2)
[2023-07-30 07:48] LABS: CREATININE 0.7 mg/dL (0.55-1.3)
[2023-07-30] MEDS: ALBUTEROL SO4 HFA INHALER IH SCH ×4 (09:00→22:52)
[2023-07-30] MEDS: APIXABAN 5 MG TABLET PO SCH ×2 (10:00→22:46)
[2023-07-30] MEDS: DEXAMETHASONE SOD PHOSPHATE 10 MG/1 ML VIAL IVPUSH SCH (10:00)
[2023-07-30] MEDS: metoPROLOL SUCCINATE 25 MG TAB.SR.24H (FP) PO SCH (10:01)
[2023-07-30] MEDS: BUDESONIDE/FORMETEROL FUMARATE 160/4.5 mcg INHALER IH SCH ×2 (10:01→22:52)
[2023-07-30] MEDS: PANTOPRAZOLE 40 MG TABLET PO SCH (10:01)
[2023-07-30] MEDS: REMDESIVIR 100 MG in SODIUM CHLORIDE 250 ML IVPB SCH (12:40)
[2023-07-30] MEDS: guaiFENesin/CODEINE 10 ML UNIT-DOSE CUPS PO PRN (16:32)
[2023-07-30] MEDS: traMADol HCL 50 MG TABLET PO PRN (22:46)
[2023-07-30] MEDS: ATORVASTATIN CA 10 MG TABLET (FP) PO SCH (22:46)
[2023-07-31] MEDS: metFORMIN HCL 500 MG TABLET (FP) PO SCH ×2 (06:31→18:08)
[2023-07-31] MEDS: INSULIN ASPART SLIDING SCALE (NOVOLOG) 1 VIAL SQ SCH ×4 (06:32→21:08)
[2023-07-31] MEDS: metoPROLOL SUCCINATE 25 MG TAB.SR.24H (FP) PO SCH (09:53)
[2023-07-31] MEDS: PANTOPRAZOLE 40 MG TABLET PO SCH (09:53)
[2023-07-31] MEDS: DEXAMETHASONE SOD PHOSPHATE 10 MG/1 ML VIAL IVPUSH SCH (09:53)
[2023-07-31] MEDS: APIXABAN 5 MG TABLET PO SCH ×2 (09:53→21:07)
[2023-07-31] MEDS: ALBUTEROL SO4 HFA INHALER IH SCH ×4 (09:53→21:09)
[2023-07-31] MEDS: BUDESONIDE/FORMETEROL FUMARATE 160/4.5 mcg INHALER IH SCH ×2 (09:53→21:08)
[2023-07-31] MEDS ORDERED: INSULIN (NOVOLOG) ASPART 100 UNITS/ML 10ML VIAL ONE (11:55)
[2023-07-31] MEDS: LISINOPRIL 5 MG TABLET PO SCH (13:24)
[2023-07-31] MEDS: ATORVASTATIN CA 10 MG TABLET (FP) PO SCH (21:07)
[2023-08-01] MEDS: metFORMIN HCL 500 MG TABLET (FP) PO SCH ×2 (06:07→17:03)
[2023-08-01] MEDS: INSULIN ASPART SLIDING SCALE (NOVOLOG) 1 VIAL SQ SCH ×4 (06:08→21:19)
[2023-08-01] MEDS: ALBUTEROL SO4 HFA INHALER IH SCH ×4 (09:09→20:30)
[2023-08-01] MEDS: APIXABAN 5 MG TABLET PO SCH ×2 (09:09→21:18)
[2023-08-01] MEDS: PANTOPRAZOLE 40 MG TABLET PO SCH (09:10)
[2023-08-01] MEDS: DEXAMETHASONE SOD PHOSPHATE 10 MG/1 ML VIAL IVPUSH SCH (09:10)
[2023-08-01] MEDS: metoPROLOL SUCCINATE 25 MG TAB.SR.24H (FP) PO SCH (09:10)
[2023-08-01] MEDS: BUDESONIDE/FORMETEROL FUMARATE 160/4.5 mcg INHALER IH SCH ×2 (09:10→21:19)
[2023-08-01] MEDS: LISINOPRIL 5 MG TABLET PO SCH (09:10)
[2023-08-01 09:55] LABS: BASO % 0.1 % (0-2.0); HEMATOCRIT 27.8 % (32.4-45.2); HEMOGLOBIN 8.4 GM/dL (10.7-15.3); LYMPH % 13.2 % (8-40); MCH 21.3 pg (25.7-33.7); MCHC 30.3 g/dl (32.0-36.0); MEAN CELL VOLUME 70.2 fl (80-96); MEAN PLT VOLUME 7.9 fl (7.5-11.1); MONO % 6.7 % (3.8-10.2); PLATELET COUNT 498 10^3/uL (134-434); RBC 3.95 M/mm3 (3.60-5.2); RDW 18.5 % (11.6-15.6); WHITE BLOOD COUNT 11.8 K/mm3 (4.0-10.0)
[2023-08-01 10:19] LABS: POTASSIUM 4.3 mmol/L (3.5-5.1)
[2023-08-01 10:21] LABS: CALCIUM 8.5 mg/dL (8.5-10.1)
[2023-08-01 10:23] LABS: ALBUMIN 3.1 g/dl (3.4-5.0); BLOOD UREA NITROGEN 24.8 mg/dL (7-18)
[2023-08-01 10:25] LABS: CREATININE 0.7 mg/dL (0.55-1.3)
[2023-08-01 10:27] LABS: BILIRUBIN,TOTAL 1.3 mg/dL (0.2-1)
[2023-08-01 11:00] LABS: ANISOCYTOSIS 3+; MACROCYTOSIS 0
[2023-08-01] MEDS: guaiFENesin/CODEINE 10 ML UNIT-DOSE CUPS PO PRN ×2 (12:12→21:19)
[2023-08-01] MEDS: BENZOCAINE/MENTH/CETYLPYRD CL 1 EACH LOZENGE MM PRN ×2 (12:13→21:19)
[2023-08-01] MEDS: FLUTICASONE PROP 0.05% 16 GM NASAL SPRAY NS SCH (17:03)
[2023-08-01] MEDS: ATORVASTATIN CA 10 MG TABLET (FP) PO SCH (21:18)
[2023-08-02] MEDS ORDERED: diphenhydrAMINE HCL 25 MG CAPSULE (FP) PO ONE ×2 (00:45→02:00)
[2023-08-02] MEDS: INSULIN ASPART SLIDING SCALE (NOVOLOG) 1 VIAL SQ SCH ×4 (06:05→21:04)
[2023-08-02] MEDS: metFORMIN HCL 500 MG TABLET (FP) PO SCH ×2 (06:05→17:03)
[2023-08-02] MEDS: APIXABAN 5 MG TABLET PO SCH ×2 (09:15→21:04)
[2023-08-02] MEDS: DEXAMETHASONE SOD PHOSPHATE 10 MG/1 ML VIAL IVPUSH SCH (09:15)
[2023-08-02] MEDS: ALBUTEROL SO4 HFA INHALER IH SCH ×4 (09:15→20:10)
[2023-08-02] MEDS: LISINOPRIL 5 MG TABLET PO SCH (09:15)
[2023-08-02] MEDS: BUDESONIDE/FORMETEROL FUMARATE 160/4.5 mcg INHALER IH SCH ×2 (09:16→21:10)
[2023-08-02] MEDS: metoPROLOL SUCCINATE 25 MG TAB.SR.24H (FP) PO SCH (09:16)
[2023-08-02] MEDS: PANTOPRAZOLE 40 MG TABLET PO SCH (09:16)
[2023-08-02] MEDS: FLUTICASONE PROP 0.05% 16 GM NASAL SPRAY NS SCH ×2 (09:28→11:00)
[2023-08-02] MEDS: ATORVASTATIN CA 10 MG TABLET (FP) PO SCH (21:03)
[2023-08-03] MEDS: INSULIN ASPART SLIDING SCALE (NOVOLOG) 1 VIAL SQ SCH ×4 (06:28→21:28)
[2023-08-03] MEDS: metFORMIN HCL 500 MG TABLET (FP) PO SCH ×2 (06:28→16:59)
[2023-08-03] MEDS: APIXABAN 5 MG TABLET PO SCH ×2 (09:38→21:28)
[2023-08-03] MEDS: PANTOPRAZOLE 40 MG TABLET PO SCH (09:38)
[2023-08-03] MEDS: metoPROLOL SUCCINATE 25 MG TAB.SR.24H (FP) PO SCH (09:38)
[2023-08-03] MEDS: LISINOPRIL 5 MG TABLET PO SCH (09:38)
[2023-08-03] MEDS: BUDESONIDE/FORMETEROL FUMARATE 160/4.5 mcg INHALER IH SCH ×2 (09:39→21:32)
[2023-08-03] MEDS: DEXAMETHASONE SOD PHOSPHATE 10 MG/1 ML VIAL IVPUSH SCH (09:39)
[2023-08-03] MEDS: ALBUTEROL SO4 HFA INHALER IH SCH ×4 (09:39→21:32)
[2023-08-03] MEDS: FLUTICASONE PROP 0.05% 16 GM NASAL SPRAY NS SCH (09:39)
[2023-08-03] MEDS: ATORVASTATIN CA 10 MG TABLET (FP) PO SCH (21:28)
[2023-08-04] MEDS: metFORMIN HCL 500 MG TABLET (FP) PO SCH (06:30)
[2023-08-04] MEDS: INSULIN ASPART SLIDING SCALE (NOVOLOG) 1 VIAL SQ SCH ×2 (06:31→12:04)
[2023-08-04] MEDS: ALBUTEROL SO4 HFA INHALER IH SCH ×2 (09:53→12:05)
[2023-08-04] MEDS: DEXAMETHASONE SOD PHOSPHATE 10 MG/1 ML VIAL IVPUSH SCH (09:55)
[2023-08-04] MEDS: PANTOPRAZOLE 40 MG TABLET PO SCH (09:55)
[2023-08-04] MEDS: metoPROLOL SUCCINATE 25 MG TAB.SR.24H (FP) PO SCH (09:55)
[2023-08-04] MEDS: LISINOPRIL 5 MG TABLET PO SCH (09:55)
[2023-08-04] MEDS: APIXABAN 5 MG TABLET PO SCH (09:55)
[2023-08-04] MEDS: FLUTICASONE PROP 0.05% 16 GM NASAL SPRAY NS SCH (10:32)
[2023-08-04] MEDS: BUDESONIDE/FORMETEROL FUMARATE 160/4.5 mcg INHALER IH SCH (10:34)
[2023-08-04 10:37] VITALS: PULSE 101
[2023-08-04 10:52] VITALS: BP 140/62; RESP 19; TEMP 98.1
== END 2023-08-04 14:04 | disposition home or self-care (01) | DRG 190 ==
LOC: JER 13:13 → JERBED 16:35 → J4W 21:57 → J4S 07-31 12:41
PROVIDERS: ADMIT Internal Medicine; ATTEND Internal Medicine
PROC: XW033E5 Introduction of Remdesivir Anti-infective into Peripheral Vein, Percutaneous Approach, New Technology Group 5 (ICD-10-PCS; principal; 2023-07-25)
DX: J44.1 Chronic obstructive pulmonary disease with (acute) exacerbation (principal); U07.1 COVID-19; E11.9 Type 2 diabetes mellitus without complications; F03.90 Unspecified dementia, unspecified severity, without behavioral disturbance, psychotic disturbance, mood disturbance, and anxiety; I10 Essential (primary) hypertension; E66.9 Obesity, unspecified; E78.5 Hyperlipidemia, unspecified; I48.0 Paroxysmal atrial fibrillation; Z68.36 Body mass index [BMI] 36.0-36.9, adult
CPT/HCPCS: 0241U-QW; 36415; 71045-TC-FY; 80053; 81003; 82550; 82803; 82962; 83036; 83880; 84484; 85025; 85610; 85730; 86140; 87086; 90677; 93005; 93010; 94761; 99291; J0248; J1100

== ENCOUNTER 2023-10-05 19:37 | Inpatient (IN) | payer OTHER ==
[2023-10-05 20:57] LABS: INR 1.26 (0.83-1.09); PROTHROMBIN TIME (PATIENT) 14.6 SEC (9.7-13.0)
[2023-10-05 21:00] LABS: ACTIVATED PTT 29.8 SECONDS (25.2-36.5)
[2023-10-05 21:03] LABS: HEMATOCRIT 34.5 % (32.4-45.2); HEMOGLOBIN 10.8 GM/dL (10.7-15.3); LYMPH % 25.1 % (8-40); MCH 24.6 pg (25.7-33.7); MCHC 31.3 g/dl (32.0-36.0); MEAN CELL VOLUME 78.6 fl (80-96); MEAN PLT VOLUME 8.5 fl (7.5-11.1); MONO % 8.1 % (3.8-10.2); NEUT % 64.8 % (42.8-82.8); PLATELET COUNT 434 10^3/uL (134-434); RBC 4.38 M/mm3 (3.60-5.2); RDW 24.2 % (11.6-15.6); WHITE BLOOD COUNT 7.6 K/mm3 (4.0-10.0)
[2023-10-05 21:15] LABS: POTASSIUM 4.2 mmol/L (3.5-5.1)
[2023-10-05 21:18] LABS: ALBUMIN 3.7 g/dl (3.4-5.0); BLOOD UREA NITROGEN 16.3 mg/dL (7-18); MAGNESIUM 1.7 mg/dL (1.8-2.4)
[2023-10-05] MEDS ORDERED: FUROSEMIDE 40 MG/4 ML INJECTABLE VIAL ONE (21:19)
[2023-10-05] MEDS ORDERED: ACETAMINOPHEN INJECTION 100 ML IVPB ONE (21:19)
[2023-10-05] MEDS ORDERED: SACUBITRIL/VALSARTAN 24 MG-26 MG TABLET ONE (21:19)
[2023-10-05 21:21] LABS: CREATININE 0.6 mg/dL (0.55-1.3)
[2023-10-05 21:22] LABS: BILIRUBIN,TOTAL 1.1 mg/dL (0.2-1); TOT PROT 7.4 g/dl (6.4-8.2)
[2023-10-05 21:25] LABS: N-TERMINAL BNP 3554.7 pg/ml (5-125)
[2023-10-05] MEDS: SACUBITRIL/VALSARTAN 24 MG-26 MG TABLET PO ONE (21:28)
[2023-10-05] MEDS: FUROSEMIDE 40 MG/4 ML INJECTABLE VIAL IVPUSH ONE (21:28)
[2023-10-05] MEDS: ACETAMINOPHEN 1000 MG/100 ML BAG IVPB ONE (21:28)
[2023-10-05] MEDS ORDERED: MAGNESIUM SULFATE IN WATER 2 GM/50 ML IVPB IVPB ONE (22:09)
[2023-10-05] MEDS: MAGNESIUM SULFATE IN WATER 2 GM/50 ML IVPB IVPB ONE (22:13)
[2023-10-05] MEDS ORDERED: MAGNESIUM OXIDE 400 MG TABLET (FP) PO ONE (22:29)
[2023-10-05 23:39] LABS: ANISOCYTOSIS 1+; MACROCYTOSIS 0; PLATELET ESTIMATE NORMAL
[2023-10-06 07:36] LABS: HEMATOCRIT 33.8 % (32.4-45.2); HEMOGLOBIN 10.3 GM/dL (10.7-15.3); MCH 24.1 pg (25.7-33.7); MCHC 30.6 g/dl (32.0-36.0); MEAN CELL VOLUME 78.9 fl (80-96); MEAN PLT VOLUME 8.5 fl (7.5-11.1); PLATELET COUNT 319 10^3/uL (134-434); RBC 4.28 M/mm3 (3.60-5.2); RDW 24.4 % (11.6-15.6); WHITE BLOOD COUNT 5.2 K/mm3 (4.0-10.0)
[2023-10-06 07:50] LABS: POTASSIUM 3.4 mmol/L (3.5-5.1)
[2023-10-06 07:54] LABS: BLOOD UREA NITROGEN 12.3 mg/dL (7-18); CALCIUM 8.3 mg/dL (8.5-10.1)
[2023-10-06] MEDS: INSULIN ASPART SLIDING SCALE (NOVOLOG) 1 VIAL SQ SCH (07:55)
[2023-10-06 07:57] LABS: CREATININE 0.5 mg/dL (0.55-1.3)
[2023-10-06] MEDS ORDERED: SPIRONOLACTONE 25 MG TABLET ONE (08:29)
[2023-10-06] MEDS ORDERED: DIGOXIN 0.125 MG TABLET ONE (08:29)
[2023-10-06] MEDS ORDERED: SACUBITRIL/VALSARTAN 24 MG-26 MG TABLET ONE ×2 (08:29→21:12)
[2023-10-06] MEDS ORDERED: APIXABAN 5 MG TABLET ONE ×2 (08:29→21:12)
[2023-10-06] MEDS ORDERED: FUROSEMIDE 40 MG/4 ML INJECTABLE VIAL ONE (08:29)
[2023-10-06] MEDS: FUROSEMIDE 40 MG/4 ML INJECTABLE VIAL IVPUSH SCH (09:04)
[2023-10-06] MEDS: DIGOXIN 0.125 MG TABLET PO SCH (09:04)
[2023-10-06] MEDS: SPIRONOLACTONE 25 MG TABLET PO SCH (09:04)
[2023-10-06] MEDS: SACUBITRIL/VALSARTAN 24 MG-26 MG TABLET PO SCH (09:04)
[2023-10-06] MEDS: APIXABAN 5 MG TABLET PO SCH (09:04)
[2023-10-06] MEDS ORDERED: metoPROLOL SUCCINATE 25 MG TAB.SR.24H (FP) PO SCH (10:00)
[2023-10-06] MEDS ORDERED: ENOXAPARIN NA (PORCINE) 40 MG/0.4 ML DISP.SYRIN SQ SCH (10:00)
[2023-10-06] MEDS ORDERED: INSULIN (NOVOLOG) ASPART 100 UNITS/ML 10ML VIAL ONE (12:20)
[2023-10-06] MEDS ORDERED: ACETAMINOPHEN INJECTION 100 ML IVPB ONE (19:49)
[2023-10-06] MEDS: ACETAMINOPHEN 1000 MG/100 ML BAG IVPB PRN (20:00)
[2023-10-06] MEDS: DOCUSATE SODIUM 100 MG CAPSULE (FP) PO SCH (23:00)
[2023-10-06] MEDS: ATORVASTATIN CA 10 MG TABLET (FP) PO SCH (23:00)
[2023-10-06] MEDS ORDERED: DOCUSATE SODIUM 100 MG CAPSULE (FP) PO ONE (23:02)
[2023-10-06] MEDS ORDERED: ATORVASTATIN CA 10 MG TABLET (FP) ONE (23:02)
[2023-10-07] MEDS ORDERED: INSULIN (NOVOLOG) ASPART 100 UNITS/ML 10ML VIAL ONE (00:07)
[2023-10-07] MEDS: BUDESONIDE/FORMETEROL FUMARATE 160/4.5 mcg INHALER IH SCH (00:15)
[2023-10-07 03:19] VITALS: BMI 38.4
[2023-10-07 07:23] LABS: BASO % 0.6 % (0-2.0); EOS % 1.4 % (0-4.5); HEMOGLOBIN 10.7 GM/dL (10.7-15.3); LYMPH % 36.6 % (8-40); MCHC 30.6 g/dl (32.0-36.0); MEAN CELL VOLUME 78.6 fl (80-96); MEAN PLT VOLUME 8.4 fl (7.5-11.1); MONO % 9.3 % (3.8-10.2); NEUT % 52.1 % (42.8-82.8); PLATELET COUNT 385 10^3/uL (134-434); RBC 4.46 M/mm3 (3.60-5.2); RDW 23.8 % (11.6-15.6)
[2023-10-07 07:39] LABS: POTASSIUM 3.5 mmol/L (3.5-5.1)
[2023-10-07 07:49] LABS: ALBUMIN 3.3 g/dl (3.4-5.0)
[2023-10-07 07:51] LABS: CALCIUM 8.5 mg/dL (8.5-10.1)
[2023-10-07 07:52] LABS: BLOOD UREA NITROGEN 15.1 mg/dL (7-18); CREATININE 0.6 mg/dL (0.55-1.3)
[2023-10-07 07:54] LABS: BILIRUBIN,TOTAL 1.2 mg/dL (0.2-1); TOT PROT 6.5 g/dl (6.4-8.2)
[2023-10-07] MEDS: PANTOPRAZOLE 40 MG TABLET PO SCH (10:37)
[2023-10-07] MEDS: METOPROLOL TARTRATE 50 MG TABLET (FP) PO SCH (15:03)
[2023-10-08] MEDS ORDERED: INSULIN (NOVOLOG) ASPART 100 UNITS/ML 10ML VIAL ONE (06:13)
[2023-10-08] MEDS: traMADol HCL 50 MG TABLET PO ONE (22:48)
[2023-10-09] MEDS ORDERED: MELATONIN 5 MG TABLETS PO ONE (04:19)
[2023-10-09 06:54] LABS: BASO % 0.8 % (0-2.0); EOS % 1.4 % (0-4.5); HEMATOCRIT 35.4 % (32.4-45.2); HEMOGLOBIN 10.9 GM/dL (10.7-15.3); MCHC 30.7 g/dl (32.0-36.0); MEAN CELL VOLUME 78.3 fl (80-96); MEAN PLT VOLUME 8.5 fl (7.5-11.1); MONO % 9.7 % (3.8-10.2); NEUT % 53.1 % (42.8-82.8); PLATELET COUNT 388 10^3/uL (134-434); RBC 4.52 M/mm3 (3.60-5.2); RDW 23.1 % (11.6-15.6); WHITE BLOOD COUNT 5.8 K/mm3 (4.0-10.0)
[2023-10-09 07:04] LABS: POTASSIUM 3.9 mmol/L (3.5-5.1)
[2023-10-09 07:14] LABS: CALCIUM 9.3 mg/dL (8.5-10.1)
[2023-10-09 07:15] LABS: ALBUMIN 3.3 g/dl (3.4-5.0); BLOOD UREA NITROGEN 23.3 mg/dL (7-18)
[2023-10-09 07:18] LABS: CREATININE 0.5 mg/dL (0.55-1.3)
[2023-10-09 07:19] LABS: TOT PROT 6.5 g/dl (6.4-8.2)
[2023-10-09 07:29] LABS: BILIRUBIN,TOTAL 1.2 mg/dL (0.2-1)
[2023-10-09] MEDS: diphenhydrAMINE HCL 25 MG CAPSULE (FP) PO ONE (15:23)
[2023-10-09] MEDS ORDERED: diphenhydrAMINE HCL 25 MG CAPSULE (FP) PO ONE (20:55)
[2023-10-10] MEDS: traMADol HCL 50 MG TABLET PO ONE (04:02)
[2023-10-10 06:11] VITALS: RESP 18
[2023-10-10 13:43] VITALS: BP 107/69; PULSE 94; TEMP 97.7
== END 2023-10-10 15:45 | disposition home health service (06) | DRG 291 ==
LOC: JER 19:37 → JERBED 20:45 → UNDOADMOB 20:45 → OBSVTOIN 22:32 → INTOOBSV 22:32 → JERBED 10-06 16:17 → J4W 10-07 00:34 → OBSVTOIN 10-07 09:25
PROVIDERS: ADMIT Internal Medicine; ATTEND Internal Medicine
DX: I11.0 Hypertensive heart disease with heart failure (principal); I50.23 Acute on chronic systolic (congestive) heart failure; I48.0 Paroxysmal atrial fibrillation; E11.9 Type 2 diabetes mellitus without complications; J44.9 Chronic obstructive pulmonary disease, unspecified; E78.5 Hyperlipidemia, unspecified; I42.8 Other cardiomyopathies
CPT/HCPCS: 0241U-QW; 36415; 71046-TC-FY; 80048; 80053; 80162; 82962; 83735; 83880; 84484; 85025; 85027; 85610; 85730; 93005; 93010; 93306-TC; 99285-25; G0378; J0131

== ENCOUNTER 2023-11-04 15:08 | Emergency (ER) | payer OTHER ==
[2023-11-04 15:19] VITALS: BP 120/67; PULSE 85; RESP 16; TEMP 97.6; BMI 36.7
[2023-11-04 16:42] LABS: EPI CELLS 8 /uL (0-25.1); HYALINE CASTS 1 /uL (0-3.1); PH,URINE 7.5 (5.0-8.0); URINE APPEARANCE TURBID; URINE BACTERIA >9,000 /uL (0-1359); URINE BILIRUBIN NEGATIVE (NEGATIVE); URINE COLOR YELLOW; URINE GLUCOSE (UA) NEGATIVE (NEGATIVE); URINE KETONE NEGATIVE (NEGATIVE); URINE LEUK ESTERASE 3+ (NEGATIVE); URINE NITRITE POSITIVE (NEGATIVE); URINE PROTEIN 2+ (NEGATIVE); URINE WBC 4601 /uL (0-25.8)
[2023-11-04] MEDS ORDERED: CEFTRIAXONE 1 GM in DEXTROSE 5%-WATER - 100 ML IVPB ONE (16:51)
[2023-11-04 17:00] LABS: URINE RBC 184 /uL (0-23.9)
[2023-11-04 17:01] LABS: YEAST NONE SEEN (NEGATIVE)
[2023-11-04 17:14] LABS: BASO % 0.4 % (0-2.0); EOS % 0.2 % (0-4.5); HEMATOCRIT 35.5 % (32.4-45.2); HEMOGLOBIN 11.1 GM/dL (10.7-15.3); LYMPH % 16.3 % (8-40); MCH 23.8 pg (25.7-33.7); MCHC 31.2 g/dl (32.0-36.0); MEAN CELL VOLUME 76.1 fl (80-96); MEAN PLT VOLUME 7.7 fl (7.5-11.1); MONO % 7.1 % (3.8-10.2); PLATELET COUNT 398 10^3/uL (134-434); RBC 4.66 M/mm3 (3.60-5.2); RDW 19.3 % (11.6-15.6)
[2023-11-04 17:22] LABS: INR 1.78 (0.83-1.09); PROTHROMBIN TIME (PATIENT) 20.5 SEC (9.7-13.0)
[2023-11-04 17:24] LABS: ACTIVATED PTT 38.9 SECONDS (25.2-36.5)
[2023-11-04] MEDS ORDERED: CEFTRIAXONE 1 GM/50 ML BAG ONE (17:24)
[2023-11-04 17:34] LABS: POTASSIUM 4.2 mmol/L (3.5-5.1)
[2023-11-04 17:37] LABS: ALBUMIN 3.6 g/dl (3.4-5.0); BLOOD UREA NITROGEN 15.2 mg/dL (7-18); MAGNESIUM 1.9 mg/dL (1.8-2.4)
[2023-11-04 17:39] LABS: CREATININE 0.7 mg/dL (0.55-1.3)
[2023-11-04 17:41] LABS: BILIRUBIN,TOTAL 1.1 mg/dL (0.2-1)
[2023-11-04] MEDS: CEFTRIAXONE 1 GM in DEXTROSE 5%-WATER - 50 ML IVPB ONE (17:44)
[2023-11-04 17:45] LABS: N-TERMINAL BNP 1322.6 pg/ml (5-125)
== END 2023-11-04 19:13 | disposition home or self-care (01) ==
LOC: JER 15:08
DX: N39.0 Urinary tract infection, site not specified (principal); R10.30 Lower abdominal pain, unspecified; R11.0 Nausea; R07.9 Chest pain, unspecified; R51.9 Headache, unspecified; R30.0 Dysuria; Z20.822 Contact with and (suspected) exposure to COVID-19
CPT/HCPCS: 0241U-QW; 36415; 71046-TC-FY; 80053; 81003; 83690; 83735; 83880; 84484; 85025; 85610; 85730; 87086; 87186; 93005; 93010; 99285-25

== ENCOUNTER 2024-09-17 18:01 | Observation (INO) | payer OTHER ==
[2024-09-17 18:10] VITALS: BMI 33.8
[2024-09-17 20:29] LABS: BASO % 0.8 % (0-2.0); EOS % 1.7 % (0-4.5); HEMATOCRIT 40.2 % (32.4-45.2); HEMOGLOBIN 12.7 GM/dL (10.7-15.3); LYMPH % 29.7 % (8-40); MCH 25.5 pg (25.7-33.7); MCHC 31.6 g/dl (32.0-36.0); MEAN CELL VOLUME 80.6 fl (80-96); MEAN PLT VOLUME 8.2 fl (7.5-11.1); MONO % 8.7 % (3.8-10.2); NEUT % 59.1 % (42.8-82.8); PLATELET COUNT 334 10^3/uL (134-434); RBC 4.99 M/mm3 (3.60-5.2); RDW 16.5 % (11.6-15.6); WHITE BLOOD COUNT 7.2 K/mm3 (4.0-10.0)
[2024-09-17 20:45] LABS: POTASSIUM 4.6 mmol/L (3.5-5.1)
[2024-09-17 20:49] LABS: ALBUMIN 3.6 g/dl (3.4-5.0); BLOOD UREA NITROGEN 16.6 mg/dL (7-18)
[2024-09-17 20:52] LABS: CREATININE 0.6 mg/dL (0.55-1.3)
[2024-09-17 20:54] LABS: BILIRUBIN,TOTAL 1.1 mg/dL (0.2-1); TOT PROT 7.1 g/dl (6.4-8.2)
[2024-09-17 20:57] LABS: N-TERMINAL BNP 1109.1 pg/ml (5-125)
[2024-09-17] MEDS: ATORVASTATIN CA 20 MG TABLET (FP) PO SCH (23:56)
[2024-09-17] MEDS: APIXABAN 5 MG TABLET PO SCH (23:56)
[2024-09-17] MEDS ORDERED: APIXABAN 5 MG TABLET ONE (23:57)
[2024-09-18] MEDS ORDERED: metFORMIN HCL 500 MG TABLET (FP) ONE ×2 (06:18→16:51)
[2024-09-18] MEDS: metFORMIN HCL 500 MG TABLET (FP) PO SCH (06:21)
[2024-09-18 08:32] LABS: POTASSIUM 4.1 mmol/L (3.5-5.1)
[2024-09-18 08:33] LABS: BASO % 0.8 % (0-2.0); CALCIUM 9.2 mg/dL (8.5-10.1); EOS % 1.8 % (0-4.5); HEMATOCRIT 39.4 % (32.4-45.2); HEMOGLOBIN 12.3 GM/dL (10.7-15.3); LYMPH % 28.5 % (8-40); MCH 25.4 pg (25.7-33.7); MCHC 31.3 g/dl (32.0-36.0); MEAN CELL VOLUME 81.2 fl (80-96); MEAN PLT VOLUME 8.6 fl (7.5-11.1); MONO % 7.3 % (3.8-10.2); NEUT % 61.6 % (42.8-82.8); PLATELET COUNT 299 10^3/uL (134-434); RBC 4.85 M/mm3 (3.60-5.2); RDW 16.1 % (11.6-15.6)
[2024-09-18 08:34] LABS: BLOOD UREA NITROGEN 14.1 mg/dL (7-18)
[2024-09-18 08:37] LABS: CREATININE 0.7 mg/dL (0.55-1.3)
[2024-09-18 08:41] LABS: CHOLESTEROL 128 mg/dL (50-200)
[2024-09-18 08:42] LABS: LDL CHOLESTEROL (ONLY SJRH) 65 mg/dL (5-100)
[2024-09-18 08:47] LABS: HDL CHOLESTEROL 52 mg/dL (40-60)
[2024-09-18] MEDS: SACUBITRIL/VALSARTAN 49 MG-51 MG TABLET PO SCH (09:11)
[2024-09-18] MEDS: SPIRONOLACTONE 25 MG TABLET PO SCH (09:11)
[2024-09-18] MEDS: DIGOXIN 0.125 MG TABLET PO SCH (09:11)
[2024-09-18] MEDS: INSULIN ASPART SLIDING SCALE (NOVOLOG) 1 VIAL SQ SCH (11:18)
[2024-09-18] MEDS ORDERED: APIXABAN 5 MG TABLET ONE (22:11)
[2024-09-18] MEDS ORDERED: ATORVASTATIN CA 20 MG TABLET (FP) ONE (22:11)
[2024-09-18] MEDS ORDERED: SACUBITRIL/VALSARTAN 49 MG-51 MG TABLET ONE (22:12)
[2024-09-19] MEDS ORDERED: traMADol HCL 50 MG TABLET ONE ×2 (01:11→09:46)
[2024-09-19] MEDS ORDERED: guaiFENesin 200 MG/10 ML 10 ML UNIT-DOSE CUPS ONE (01:11)
[2024-09-19] MEDS: traMADol HCL 50 MG TABLET PO PRN (01:13)
[2024-09-19] MEDS: guaiFENesin 200 MG/10 ML 10 ML UNIT-DOSE CUPS PO PRN (01:13)
[2024-09-19] MEDS ORDERED: EMPAGLIFLOZIN (JARDIANCE) 10 MG TABLET PO SCH (10:00)
[2024-09-19] MEDS ORDERED: APIXABAN 5 MG TABLET ONE (10:47)
[2024-09-19] MEDS ORDERED: ALBUTEROL SO4 2.5/IPRATROPIUM 0.5 INH SOL 3 ML VIAL.NEB. NEB ONE ×3 (10:47→17:01)
[2024-09-19] MEDS: ALBUTEROL SO4 2.5/IPRATROPIUM 0.5 INH SOL 3 ML VIAL.NEB. NEB SCH (10:52)
[2024-09-19] MEDS ORDERED: methylPREDNISolone NA SUCC 40 MG/1 ML VIAL ONE (13:00)
[2024-09-19] MEDS: methylPREDNISolone NA SUCC 40 MG/1 ML VIAL IVPUSH SCH (13:04)
[2024-09-19] MEDS: BUDESONIDE/FORMETEROL FUMARATE 160/4.5 mcg INHALER IH SCH (13:04)
[2024-09-20] MEDS: hydrOXYzine PAMOATE 50 MG CAPSULE (FP) PO PRN (08:32)
[2024-09-20] MEDS ORDERED: REGADENOSON 0.4 MG/5 ML PRE-FILLED SYRINGE IVPUSH ONE (10:43)
[2024-09-21 07:51] LABS: POTASSIUM 4.3 mmol/L (3.5-5.1)
[2024-09-21 07:52] LABS: BASO % 0.2 % (0-2.0); HEMATOCRIT 35.8 % (32.4-45.2); HEMOGLOBIN 11.3 GM/dL (10.7-15.3); LYMPH % 16.1 % (8-40); MCH 25.3 pg (25.7-33.7); MCHC 31.4 g/dl (32.0-36.0); MEAN CELL VOLUME 80.6 fl (80-96); MEAN PLT VOLUME 8.6 fl (7.5-11.1); MONO % 6.1 % (3.8-10.2); NEUT % 77.6 % (42.8-82.8); PLATELET COUNT 348 10^3/uL (134-434); RBC 4.44 M/mm3 (3.60-5.2); RDW 16.1 % (11.6-15.6); WHITE BLOOD COUNT 13.1 K/mm3 (4.0-10.0)
[2024-09-21 08:01] LABS: BLOOD UREA NITROGEN 20.8 mg/dL (7-18)
[2024-09-21 08:02] LABS: ALBUMIN 3.1 g/dl (3.4-5.0)
[2024-09-21 08:05] LABS: BILIRUBIN,TOTAL 0.8 mg/dL (0.2-1)
[2024-09-21 08:06] LABS: CREATININE 0.6 mg/dL (0.55-1.3); TOT PROT 6.1 g/dl (6.4-8.2)
[2024-09-22 07:28] LABS: BASO % 0.2 % (0-2.0); EOS % 0.1 % (0-4.5); HEMOGLOBIN 11.8 GM/dL (10.7-15.3); LYMPH % 18.7 % (8-40); MEAN CELL VOLUME 80.8 fl (80-96); MEAN PLT VOLUME 8.6 fl (7.5-11.1); MONO % 5.8 % (3.8-10.2); NEUT % 75.2 % (42.8-82.8); PLATELET COUNT 351 10^3/uL (134-434); RDW 16.3 % (11.6-15.6); WHITE BLOOD COUNT 12.8 K/mm3 (4.0-10.0)
[2024-09-22 07:48] LABS: POTASSIUM 4.3 mmol/L (3.5-5.1)
[2024-09-22 07:53] LABS: CALCIUM 8.8 mg/dL (8.5-10.1)
[2024-09-22 07:54] LABS: ALBUMIN 3.3 g/dl (3.4-5.0); BLOOD UREA NITROGEN 20.2 mg/dL (7-18)
[2024-09-22 07:57] LABS: CREATININE 0.7 mg/dL (0.55-1.3)
[2024-09-22 07:59] LABS: BILIRUBIN,TOTAL 1.1 mg/dL (0.2-1); TOT PROT 6.4 g/dl (6.4-8.2)
[2024-09-22] MEDS: REGADENOSON 0.4 MG/5 ML PRE-FILLED SYRINGE IVPUSH ONE (08:00)
[2024-09-22 10:05] VITALS: PULSE 98
[2024-09-22 18:19] VITALS: BP 145/92; RESP 18; TEMP 98.1
[2024-09-23] MEDS ORDERED: predniSONE 20 MG TABLET (UD) PO SCH (10:00)
== END 2024-09-22 19:05 | disposition home health service (06) ==
LOC: JER 18:01 → JERBED 19:34 → J4W 09-19 21:18
PROVIDERS: ADMIT Student in an Organized Health Care Education/Training Program; ATTEND Internal Medicine
PROC: 3E013VG Introduction of Insulin into Subcutaneous Tissue, Percutaneous Approach (ICD-10-PCS; principal; 2024-09-17)
DX: I50.23 Acute on chronic systolic (congestive) heart failure (principal); I50.20 Unspecified systolic (congestive) heart failure; I48.0 Paroxysmal atrial fibrillation; E11.9 Type 2 diabetes mellitus without complications; F03.90 Unspecified dementia, unspecified severity, without behavioral disturbance, psychotic disturbance, mood disturbance, and anxiety; J44.9 Chronic obstructive pulmonary disease, unspecified; E78.5 Hyperlipidemia, unspecified; F41.9 Anxiety disorder, unspecified; Z86.16 Personal history of COVID-19; Z90.49 Acquired absence of other specified parts of digestive tract; Z90.79 Acquired absence of other genital organ(s); Z87.891 Personal history of nicotine dependence
CPT/HCPCS: 0241U-QW; 36415; 71045-TC-FY; 78452-TC; 80048; 80053; 80061; 80162; 82962; 83735; 83880; 84443; 84484; 85025; 93005; 93010; 93017; 93306-TC; 94640; 96372; 96374; 99285-25; A9502; G0378; J2785

== ENCOUNTER 2025-01-14 22:56 | Emergency (ER) | payer OTHER ==
[2025-01-14 23:04] VITALS: TEMP 98.6; BMI 34.7
[2025-01-14] MEDS ORDERED: KETOROLAC TROMETHAMINE 15 MG/ML VIAL ONE (23:41)
[2025-01-15] MEDS: KETOROLAC TROMETHAMINE 15 MG/ML VIAL IVPUSH ONE (00:39)
[2025-01-15] MEDS ORDERED: FAMOTIDINE 20 MG/50 ML IVPB 20 MG/50 ML MG IVPB ONE (00:42)
[2025-01-15] MEDS: FAMOTIDINE 20 MG/50 ML IVPB 20 MG/50 ML MG IVPB ONE (00:47)
[2025-01-15] MEDS: SODIUM CHLORIDE 500 ML IV STA (00:47)
[2025-01-15 01:12] LABS: ABSOLUTE IMMATURE GRANULOCYTES 0.01 x10^3/uL (0.0-0.031); BASOPHILS # 0.02 x10^3/uL (0.01-0.08); EOSINOPHIL % 0.0 % (0.7-5.8); EOSINOPHILS # 0.00 x10^3/uL (0.04-0.36); MCHC 31.2 g/dl (32.2-35.5); MEAN CELL VOLUME 86.1 fl (79.4-94.8); MEAN PLT VOLUME 10.3 fl (9.4-12.3); MONOCYTE # 0.70 x10^3/uL (0.24-0.86); MONOCYTE % 8.6 % (4.7-12.5); RDW 15.3 % (12.4-16.6)
[2025-01-15 01:17] LABS: BG HCT 41.0 % (32.4-45.2); VENOUS BASE EXCESS -2.5 mmol/L (-2-2); VENOUS O2 SATURATION 84.6 % (70-80); VENOUS PCO2 33.2 mmHg (38-52); VENOUS PH 7.422 (7.310-7.410)
[2025-01-15 01:35] LABS: CO2 25.0 mmol/L (21-32); GLUCOSE,RANDOM 112.0 mg/dL (74-106)
[2025-01-15 01:38] LABS: CREATININE 0.8 mg/dL (0.55-1.3); SGOT/AST 16.0 U/L (15-37); SGPT/ALT 17.0 U/L (13-61)
[2025-01-15 01:41] LABS: TOT PROT 6.4 g/dl (6.4-8.2)
[2025-01-15 01:42] LABS: ALK PHOS 74.0 U/L (45-117)
[2025-01-15 05:02] VITALS: BP 128/74; PULSE 88; RESP 17
== END 2025-01-15 04:45 | disposition home or self-care (01) ==
LOC: JER 22:56
PROC: 3E033GC Introduction of Other Therapeutic Substance into Peripheral Vein, Percutaneous Approach (ICD-10-PCS; principal; 2025-01-14)
PROC: 3E0333Z Introduction of Anti-inflammatory into Peripheral Vein, Percutaneous Approach (ICD-10-PCS; 2025-01-14)
PROC: 3E0337Z Introduction of Electrolytic and Water Balance Substance into Peripheral Vein, Percutaneous Approach (ICD-10-PCS; 2025-01-15)
DX: A08.4 Viral intestinal infection, unspecified (principal); M79.10 Myalgia, unspecified site; R19.7 Diarrhea, unspecified; R11.0 Nausea; R06.02 Shortness of breath; R50.9 Fever, unspecified; R10.10 Upper abdominal pain, unspecified; R07.89 Other chest pain; M54.9 Dorsalgia, unspecified; G89.29 Other chronic pain; R00.0 Tachycardia, unspecified
CPT/HCPCS: 36415; 71046-TC-FY; 74177-TC; 80053; 82550; 82803; 83605; 83690; 83880; 84484; 85025; 86850; 86900; 86901; 87637-QW; 93005; 93010; 96361; 96365; 96375; 99285-25; Q9967